=== PATIENT | female | born 1965 | race Caucasian/White ===

== ENCOUNTER → 2017-07-17 07:14 | Outpatient (CLI) | payer OTHER, SELFPAY ==
[2017-07-17 10:49] LABS: Thyroid Stim Hormone (TSH) 0.31 uIU/mL (0.358-3.74)
== END ==
DX: E03.9 Hypothyroidism, unspecified (principal)
CPT/HCPCS: 36415; 84443

== ENCOUNTER → 2017-12-20 16:22 | Outpatient (CLI) | payer OTHER, SELFPAY ==
[2017-12-20 18:15] LABS: Free T3 2.6 pg/mL (2.18-3.98); T4 Free Direct 1.24 ng/dL (0.76-1.46)
[2017-12-22 13:49] LABS: Thyroid Peroxidase AB 146 IU/mL (0-34)
== END ==
PROVIDERS: Family Provider Family Medicine; PCP Family Medicine; Visit Provider Specialist
DX: E03.9 Hypothyroidism, unspecified (principal)
CPT/HCPCS: 36415; 84439; 84443; 84481; 86376

== ENCOUNTER → 2017-12-25 11:54 | Outpatient (CLI) | payer OTHER, SELFPAY ==
--- NOTE | 2017-12-25 11:59 | RAD_ITS ---
STUDY: X-RAY - LUMBAR SPINE REASON FOR EXAM: Female, 52 years old. Low back pain. TECHNIQUE: 5 view(s) of the lumbar spine were obtained. COMPARISON: None FINDINGS: Normal lumbar lordosis. There is no substantial scoliosis. There is a normal alignment of the vertebrae. Normal vertebral bodies and endplates. Normal disc space heights. There is no demonstrated fracture. The soft tissue structures are unremarkable. RAD/L/S Spine Min 4 Views IMPRESSION: Normal x-ray examination of the lumbar spine. Electronically Signed: Lopez Palmer MD at 15:59 EDT , Service support ,
[2017-12-25 14:19] LABS: Erythrocyte Sedimentation Rate < 1 mm/hr (0-30)
[2017-12-25 14:21] LABS: Absolute Lymphocyte Count 1.13 X10^3/ul (0.83-4.51); Absolute Neutrophil Count 2.3 X10^3/uL (2.0-7.7); Basophil# 0.04 X10^3/uL; Eosinophil# 0.02 X10^3/uL; Eosinophils% 0.5 % (0-5); Hematocrit 39.9 % (37-47); Hemoglobin 13.3 g/dl (12.0-15.0); Lymphocyte # 1.13 X10^3/ul (4.0); Lymphocyte % 29.7 % (19-41); Mean Corp Hgb Conc 33.3 g/gl (32-36); Mean Corpuscular Hgb 28.2 pg (27.0-32.0); Mean Corpuscular Volume 84.7 fL (81-99); Mean Platelet Vol. 9.6 fl (6.2-12.0); Monocyte# 0.29 X10^3/uL; Monocyte% 7.6 % (0-10); Neutrophil # 2.32 X10^3/uL (2.7-7.7); Neutrophil % 60.9 % (47-70); Platelet Count 281 K/mm3 (150-450); RBC Distribution Width CV 13.2 % (11.6-14.6); RBC Distribution Width SD 40.5 fl (35.1-43.9); Red Blood Count 4.71 M/mm3 (4.2-5.4); White Blood Count 3.8 K/mm3 (4.4-11.0)
[2017-12-25 14:23] LABS: POSITIVE COUNT NO; POSITIVE DIFFERENTIAL NO; POSITIVE MORPHOLOGY NO
[2017-12-25 14:33] LABS: ALB/GLOB Ratio 1.1 RATIO (0.9-2.4); AST(SGOT) 15 U/L (15-37); Alanine Aminotransfer ALT/SGPT 27 U/L (13-56); Albumin, Serum 4.4 g/dL (3.2-5.0); Alkaline Phosphatase 67 U/L (45-117); Anion Gap 8 (5-15); BUN 8 mg/dL (7-18); Calcium,Total 9.2 mg/dL (8.5-10.1); Chloride 101 mmol/L (98-107); Cholesterol 251 mg/dL (200); Creatinine, Serum 0.67 mg/dL (0.55-1.02); EST Glomerular Filtration Rate 98 mL/min (>60); Est Glom Filt Rate - Afr Amer 119 mL/min (>60); Globulin 3.9 g/dL (2.2-4.2); Glucose 86 mg/dL (74-106); High Density Lipoprotein 131 mg/dL; Potassium 4.5 mmol/L (3.5-5.1); Protein, Total 8.3 g/dL (6.4-8.2); Rheumatoid Factor < 10.0 IU/mL (<15); Sodium Level 139 mmol/L (136-145); Triglycerides 79 mg/dL; Very Low Density Lipoprotein 16 mg/dL (5-40)
[2017-12-26 09:41] LABS: Vitamin D,25 Hydroxy 40.8 ng/mL (29.95-100.01)
[2017-12-26 09:55] LABS: PTHIN 60.4 pg/mL (18.4-80.1)
[2017-12-26 14:54] LABS: Anti-Centromere B Ab <0.2 AI (0.0-0.9); Anti-Chromatin <0.2 AI (0.0-0.9); Anti-Jo <0.2 AI (0.0-0.9); Anti-Scleroderma-70 AB <0.2 AI (0.0-0.9); Anti-ribosomal P Antibodies <0.2 AI (0.0-0.9); RNP Ab 0.2 AI (0.0-0.9); SJOGREN'S Anti-SS-A test < 0.2 AI (0.0-0.9); SJOGREN'S Anti-SS-B test < 0.2 AI (0.0-0.9); Smith Ab <0.2 AI (0.0-0.9); Smith/RNP Ab <0.2 AI (0.0-0.9)
[2017-12-26 15:46] LABS: Anti-dsDNA Ab <1 IU/mL (0-9)
== END ==
PROVIDERS: Family Provider Family Medicine; PCP Family Medicine; Visit Provider Family Medicine
DX: M54.5 Low back pain (principal); D72.819 Decreased white blood cell count, unspecified; E78.00 Pure hypercholesterolemia, unspecified
CPT/HCPCS: 36415; 72110; 80053; 80061; 82306; 83970; 85025; 85652; 86038; 86225; 86235; 86431

== ENCOUNTER → 2018-02-26 16:49 | Outpatient (CLI) | payer OTHER, SELFPAY ==
[2018-02-26 18:07] LABS: Progesterone Level 0.42 ng/mL (See Comment)
[2018-02-26 18:17] LABS: Estradiol 61.6 pg/mL; Free T3 2.4 pg/mL (2.18-3.98); T3 Uptake 28 % (30-39); T4 Total, Thyroxin 6.8 ug/dL (4.8-13.9); T7 / Free Thyroxin Index 1.9 (1.4-4.5)
[2018-02-28 10:07] LABS: T4 Free Direct 0.56 ng/dL (0.76-1.46)
[2018-03-01 13:42] LABS: DHEA Sulfate 120.2 ug/dL (41.2-243.7)
== END ==
PROVIDERS: Family Provider Family Medicine; PCP Family Medicine; Referring Provider Specialist; Visit Provider Specialist
DX: E03.8 Other specified hypothyroidism (principal); N95.1 Menopausal and female climacteric states
CPT/HCPCS: 36415; 82627; 82670; 84144; 84403; 84436; 84439; 84443; 84479; 84481; 82626

== ENCOUNTER → 2018-04-30 12:41 | Outpatient (CLI) | payer OTHER, SELFPAY ==
[2018-04-30 14:45] LABS: Free T3 3.7 pg/mL (2.18-3.98); T4 Total, Thyroxin 9.6 ug/dL (4.8-13.9); Thyroid Stim Hormone (TSH) 3.92 uIU/mL (0.358-3.74)
[2018-05-01 08:14] LABS: T4 Free Direct 0.75 ng/dL (0.76-1.46)
[2018-05-01 10:00] LABS: Thyroid Peroxidase AB 147 IU/mL (0-34)
--- OUTSIDE RECORDS SUMMARY | 2018-06-16 15:20 | XMS RPT_ITS ---
:1965 Author Organization [facility] Care Team Providers Name Role Phone Edson Trevino Attending Unavailable Edson Trevino Referring Unavailable Shahid, Robert Primary Care Unavailable Edson Trevino Attending Unavailable Edson Trevino Referring Unavailable Shahid, Robert Primary Care Unavailable Edson Trevino Attending Unavailable Edson Trevino Referring Unavailable Shahid, Robert Primary Care Unavailable Keegan Mckoy Attending Unavailable Keegan Mckoy Primary Care Unavailable Shahid, Robert Attending Unavailable Shahid, Robert Referring Unavailable Shahid, Robert Primary Care Unavailable PROBLEMS PROBLEMS DATE TYPE CONDITION / CODE ATTENDING STATUS SOURCE 02/26/2018 Unknown N95.1 - Menopausal [place] Trevino and female [facility] climacteric states / Hospital N95.1(ICD-10) Repository 02/26/2018 Unknown E03.8 - Other [place], Active [place] specified [facility] hypothyroidism / Hospital E03.8(ICD-10) Repository 12/25/2017 Unknown M54.5 - Low back Shahid, Robert Active [place] pain / M54.5(ICD-10) [facility]ly [facility] Repository 12/20/2017 Unknown E03.9 - [place], Active [place] Hypothyroidism, [facility] unspecified / Hospital E03.9(ICD-10) Repository PROCEDURES PROCEDURES No Procedure Records FoundRESULTS RESULTS FREE T3 Collected: 04/30/2018 Status: F Source: [place] 12:47 PM [facility] REPOSITORY Order Comment: FT4 ADDED ON TYPE CODE TESTS RESULT OUT OF RANGE REFERENCE UNITS LAB L501.89331 2.18-3.98 pg/mL Normal FREE T3 3.7 Performed By: #### L501.90397, L501.9310, L501.9520, L506.0400 #### [facility] [address] [place], [place], [address] T4 TOTAL, THYROXIN Collected: 04/30/2018 Status: F Source: [place] 12:47 PM [facility] REPOSITORY Order Comment: FT4 ADDED ON TYPE CODE TESTS RESULT OUT OF RANGE REFERENCE UNITS LAB L501.9310 4.8-13.9 ug/dL T4 Normal THYROXIN 9.6 Performed By: #### L501.37405, L501.9310, L501.9520, L506.0400 #### [facility] [address] [place], [place], [address] THYROID STIM HORMONE Collected: 04/30/2018 Status: F Source: [place] (TSH) 12:47 PM [facility] REPOSITORY Order Comment: FT4 ADDED ON TYPE CODE TESTS RESULT OUT OF RANGE REFERENCE UNITS LAB L501.9520 0.358-3.74 uIU/mL High TSH 3.92 Performed By: #### L501.62979, L501.9310, L501.9520, L506.0400 #### [facility] [address] [place], [place], [id number] T4 FREE DIRECT Collected: 04/30/2018 Status: F Source: [place] 12:47 PM [facility] REPOS[facility]ORY Order Comment: FT4 ADDED ON TYPE CODE TESTS RESULT OUT OF REFERENCE UNITS RANGE LAB L506.0400 0.76-1.46 ng/dL Low T4 FREE 0.75 DIRECT Performed By: #### L501.19997, L501.9310, L501.9520, L506.0400 #### [facility] [address] [place], [place], [id number] THYROID PEROXIDASE AB Collected: 04/30/2018 Status: F Source: [place] 12:47 PM [facility]POSITORY TYPE CODE TESTS RESULT OUT OF RANGE REFERENCE UNITS LAB L3300.6900 0-34 IU/mL High TPO AB 147 6676 Result Comment: Performed at: [facility] [id number] Package Center Supervisor: Armaan Godinez PhD, Phone: [phone] Performed By: #### L3300.6900 #### [facility] (refer to report for specific site) refer to report for address and phone number TESTOSTERONE, SERUM TOTAL Collected: 02/26/2018 Status: F Source: [place] 4:51 PM [facility] REPOSITORY TYPE CODE TESTS RESULT OUT OF REFERENCE UNITS RANGE LAB L509.3000 ng/dL Testosterone Normal 17.48 Result Comment: NORMAL REFERENCE RANGES MALE AGE <50 123.06 - 813.86 ng/dL MALE AGE >50 89.98 - 780.10 ng/dL FEMALE PREMENOPAUSE AGE 21 - 60 9.01 - 47.94 ng/dL FEMALE POSTMENOPAUSE AGE 45 - 89 <7.00 - 45.62 ng/dL REFERENCE RANGE AND METHODOLOGY CHANGED 05/09/2017 Performed By: #### L509.3000, L509.4001 #### [facility] [address] [place], [place], [address] PROGESTERONE LEVEL Collected: 02/26/2018 Status: F Source: [place] 4:51 PM [facility]ORY TYPE CODE TESTS RESULT OUT OF REFERENCE UNITS RANGE LAB L509.4001 See Comment ng/mL Progesterone Normal 0.42 Result Comment: Progesterone Reference Table: UNITS Female: Follicular 0.15 - 1.40 ng/mL Luteal 3.34 - 25.56 ng/mL Mid-luteal 4.44 - 28.03 ng/mL Postmenopausal 0.0 - 0.73 ng/mL : 1st Trimester 11.22 - 90.00 ng/mL 2nd Trimester 25.55 - 89.40 ng/mL 3rd Trimester 48.40 -422.50 ng/mL Performed By: #### L509.3000, L509.4001 #### [facility] [address] [place], [address] FREE T3 Collected: 02/26/2018 Status: F Source: [place] 4:51 PM [facility]POS[facility]ORY Order Comment: PLEASE ADD T4F TO BLOOD FROM 02-26-18 [facility] 2 J TYPE CODE TESTS RESULT OUT OF RANGE REFERENCE UNITS LAB L501.37218 2.18-3.98 pg/mL Normal FREE T3 2.4 Performed By: #### L501.40798, L501.9195, L501.9310, L501.9520, L3300.1750, L506.0400 #### [facility] [address] [place], [address] T3 UPTAKE Collected: 02/26/2018 Status: F Source: [place] 4:51 PM [facility] Order Comment: PLEASE ADD T4F TO BLOOD FROM 02-26-18 [facility] 2 J TYPE CODE TESTS RESULT OUT OF RANGE REFERENCE UNITS LAB L501.9210 30-39 % Low T3 UPTAKE 28 LAB L501.9410 1.4-4.5 Normal T7 (FTI) 1.9 Performed By: #### L501.68612, L501.9195, L501.9310, L501.9520, L3300.1750, L506.0400 #### [facility] [address] [place], [address] T4 TOTAL, THYROXIN Collected: 02/26/2018 Status: F Source: [place] 4:51 PM [facility] Order Comment: PLEASE ADD T4F TO BLOOD FROM 02-26-18 [facility] 2 J TYPE CODE TESTS RESULT OUT OF RANGE REFERENCE UNITS LAB L501.9310 4.8-13.9 ug/dL T4 Normal THYROXIN 6.8 Performed By: #### L501.40636, L501.9195, L501.9310, L501.9520, L3300.1750, L506.0400 #### [facility] [address] [place], [address] THYROID STIM HORMONE Collected: 02/26/2018 Status: F Source: [place] (TSH) 4:51 PM [facility] Order Comment: PLEASE ADD T4F TO BLOOD FROM 02-26-18 T[facility]2 2 J TYPE CODE TESTS RESULT OUT OF RANGE REFERENCE UNITS LAB L501.9520 0.358-3.74 uIU/mL High TSH 24.10 Performed By: #### L501.44318, L501.9195, L501.9310, L501.9520, L3300.1750, L506.0400 #### [facility] [address] [place], [place], [address] ESTRADIOL Collected: 02/26/2018 Status: F Source: [place] 4:51 PM [facility] Order Comment: PLEASE ADD T4F TO BLOOD FROM 02-26-18 TY2 2 J TYPE CODE TESTS RESULT OUT OF RANGE REFERENCE UNITS LAB L3300.1750 pg/mL Normal ESTRADIOL 61.6 Result Comment: NORMAL REFERENCE RANGES FEMALE FOLLICULAR 21.4 - 164.8 pg/mL MID-CYCLE PEAK 49.9 - 367.2 pg/mL LUTEAL 40.2 - 259.0 pg/mL POST-MENOPAUSAL ON MHT <11.0 - 462.1 pg/mL NOT ON MHT <11.0 - 58.3 pg/mL MALE <11.0 - 52.5 pg/mL NOTE: [facility] HAS CONFIRMED THE DRUG FULVETRANT (FASLODEX) MAY CAUSE FALSELY ELEVATED ESTRADIOL RESULTS WHEN USING THIS TEST METHOD. IF PATIENT IS TAKING FULVESTRANT AN ALTERNATIVE METHOD SHOULD BE USED TO DETERMINE ESTRADIOL CONCENTRATION. Performed By: #### L501.00839, L501.9195, L501.9310, L501.9520, L3300.1750, L506.0400 #### [facility] [address] [place], [address] T4 FREE DIRECT Collected: 02/26/2018 Status: F Source: [place] 4:51 PM [facility] Order Comment: PLEASE ADD T4F TO BLOOD FROM 02-26-18 TY2 2 J TYPE CODE TESTS RESULT OUT OF REFERENCE UNITS RANGE LAB L506.0400 0.76-1.46 ng/dL Low T4 FREE 0.56 DIRECT Performed By: #### L501.27039, L501.9195, L501.9310, L501.9520, L3300.1750, L506.0400 #### [facility] [address] [place], [place], [address] DHEA SULFATE Collected: 02/26/2018 Status: F Source: [place] 4:51 PM [facility] Order Comment: Has Patient had Radioactive Injection for X-ray?: N TYPE CODE TESTS RESULT OUT OF RANGE REFERENCE UNITS LAB L3300.1500 41.2-243.7 ug/dL Normal DHEA SULF 120.2 4020 Result Comment: Performed at: - [facility] [address] [id number] Package Center Supervisor: Armaan Godinez PhD, Phone: [phone] Performed By: #### L3300.1500 #### [facility] (refer to report for specific site) refer to report for address and phone number L/S SPINE MIN 4 Observed: 12/25/2017 Status: F Source: [place] VIEWS 11:59 AM [facility] Imaging Services [address] [place] [address] L/S Spine Min 4 Views MR#: [id number] Acct: [id number] Name: HILDA CALDERON Rep #: [id number] : 1965 F 52 From: Lopez Palmer MD PCP: Robert Shahid MD Status: REG CLI Study: L/S Spine Min 4 Views Date of Exam: 12/25/17 Exam# [id number] Ordering Dr: Robert Shahid MD STUDY: X-RAY - LUMBAR SPINE REASON FOR EXAM: Female, 52 years old. Low back pain. TECHNIQUE: 5 view(s) of the lumbar spine were obtained. COMPARISON: None FINDINGS: Normal lumbar lordosis. There is no substantial scoliosis. There is a normal alignment of the vertebrae. Normal vertebral bodies and endplates. Normal disc space heights. There is no demonstrated fracture. The soft tissue structures are unremarkable. RAD/L/S Spine Min 4 Views IMPRESSION: Normal x-ray examination of the lumbar spine. Electronically Signed: Lopez Palmer MD at 15:59 EDT , Service support , CC: Robert Shahid MD Cull Grader: Signed ERYTHROCYTE SED RATE Collected: 12/25/2017 Status: F Source: [place] 11:58 AM [facility]POS[facility]ORY TYPE CODE TESTS RESULT OUT OF RANGE REFERENCE UNITS LAB L102.0000 0-30 mm/hr Normal SED RATE < 1 Performed By: #### L101.9900, L100.0100 #### [facility] [place], [address] CBC W/DIFF, AUTOMATED Collected: 12/25/2017 Status: F Source: [place] 11:58 AM [facility] REPOS[facility]ORY TYPE CODE TESTS RESULT OUT OF RANGE REFERENCE UNITS LAB L100.1000 4.4-11.0 K/mm3 Low WBC 3.8 LAB L100.1200 4.2-5.4 M/mm3 Normal RBC 4.71 LAB L100.1300 12.0-15.0 g/dl Normal HGB 13.3 LAB L100.1400 37-47 % Normal HCT 39.9 LAB L100.1500 81-99 fL Normal MCV 84.7 LAB L100.1600 27.0-32.0 pg Normal MCH 28.2 LAB L100.1700 32-36 g/gl Normal MCHC 33.3 LAB L100.1810 11.6-14.6 % Normal RDW CV 13.2 LAB L100.1820 35.1-43.9 fl Normal RDW SD 40.5 LAB L100.1900 150-450 K/mm3 Normal PLT 281 LAB L100.2000 6.2-12.0 fl Normal MPV 9.6 LAB L100.2100 47-70 % Normal NEUT% 60.9 LAB L100.2200 19-41 % Normal LY% 29.7 LAB L100.2300 0-10 % Normal MONO% 7.6 LAB L100.2400 0-5 % Normal EO% 0.5 LAB L100.2500 0-1 % Normal BASO% 1.0 LAB L100.2550 0.0-0.9 % Normal IM GRAN % 0.300 Result Comment: IG% - Immature Granulocytes (promyelocytes, myelocytes and metamyelocytes) > 1% indicates that a LEFT SHIFT is Present. LAB L100.2620 2.0-7.7 X10 3/uL Normal Absolute Neut 2.3 LAB L100.2720 0.83-4.51 X10 3/ul Normal Absolute Lymph 1.13 Performed By: #### L101.9900, L100.0100 #### [facility] [address] [place], [address] COMPREHENSIVE METABOLIC Collected: 12/25/2017 Status: F Source: [facility] 11:58 AM [facility]POS[facility]ORY TYPE CODE TESTS RESULT OUT OF RANGE REFERENCE UNITS LAB L501.0100 74-106 mg/dL Normal GLU 86 Result Comment: Please note revised GLUCOSE reference range effective 2017. LAB L501.1000 7-18 mg/dL Normal BUN 8 LAB L501.1100 0.55-1.02 mg/dL Normal CREAT,SERUM 0.67 Result Comment: The validity of the calculated GFR AND GFRAA in patients over 70 years has not been determined. Clinical correlation is essential. LAB L501.1110 >60 mL/min Normal EST GFR 98 Result Comment: Non- GFR Calc LAB L501.1115 >60 mL/min Normal EST GFR - AA 119 Result Comment: GFR Calc LAB L501.1300 10-20 RATIO Normal BUN/CRE 12.0 LAB L501.1500 6.4-8.2 g/dL High T PROT 8.3 LAB L501.1800 3.2-5.0 g/dL Normal ALB 4.4 LAB L501.1950 2.2-4.2 g/dL Normal GLOB 3.9 LAB L501.2000 0.9-2.4 RATIO Normal A/G 1.1 LAB L501.2200 8.5-10.1 mg/dL CA Normal 9.2 LAB L501.4100 15-37 U/L Normal AST 15 LAB L501.4305 45-117 U/L Normal ALK P 67 LAB L501.4405 13-56 U/L Normal ALT 27 LAB L501.4600 0.20-1.00 mg/dL T Normal BILI 0.40 LAB L501.5300 136-145 mmol/L NA Normal 139 LAB L501.5600 3.5-5.1 mmol/L K Normal 4.5 LAB L501.5900 98-107 mmol/L CL Normal 101 LAB L501.6100 21.0-32.0 mmol/L Normal CO2 30.0 LAB L501.6200 5-15 Normal GAP 8 Performed By: #### L500.4050, L500.4100, L505.7010 #### [facility] [address] [place], [address] LIPID PROFILE Collected: 12/25/2017 Status: F Source: [place] 11:58 AM [facility]POS[facility]ORY TYPE CODE TESTS RESULT OUT OF RANGE REFERENCE UNITS LAB L501.4900 200 mg/dL High CHOL 251 Result Comment: <200 mg/dL Desirable 200-240 mg/dL Borderline >240 mg/dL High Risk LAB L501.5000 mg/dL Normal TRIG 79 Result Comment: The drugs N-Acetylcysteine and Metamizole may falsely depress this assay. Serum Triglycerides Reference Interval Normal <150 mg/dL Borderline high 150 - 199 mg/dL High 200 - 499 mg/dL Very High > or = 500 mg/dL LAB L501.6400 mg/dL Normal HDL 131 Result Comment: The drugs N-Acetylcysteine and Metamizole may falsely depress this assay. Reference Range HDL <40 mg/dL Low HDL Cholesterol HDL >or= 60 mg/dL High HDL Cholesterol LAB L501.6500 0-130 mg/dL Normal LDL 104 LAB L501.6600 5-40 mg/dL Normal VLDL 16 Performed By: #### L500.4050, L500.4100, L505.7010 #### [facility] [address] [place], [address] RHEUMATOID FACTOR Collected: 12/25/2017 Status: F Source: [place] 11:58 AM [facility]POS[facility]ORY TYPE CODE TESTS RESULT OUT OF RANGE REFERENCE UNITS LAB L505.7010 <15 IU/mL Normal RHEUMATOID FAC < 10.0 Performed By: #### L500.4050, L500.4100, L505.7010 #### [facility] [address] [place], [address] VITAMIN D,25 HYDROXY Collected: 12/25/2017 Status: F Source: [place] 11:58 AM [facility]POS[facility] TYPE CODE TESTS RESULT OUT OF RANGE REFERENCE UNITS LAB L506.1000 29.95-100.01 ng/mL Normal Vitamin D 40.8 25-OH Result Comment: Vitamin D 25(OH) Status Range Deficiency <20 ng/mL (50nmol/L) Insuffciency 20 - 30 ng/mL (50 - 75 nmol/L) Sufficiency 30 - 100 ng/mL (75 - 250 nmol/L) Toxicity >100 ng/mL (>250 nmol/L) Performed By: #### L506.1000 #### [facility] [address] [place], [address] PTHIN Collected: 12/25/2017 Status: F Source: [place] 11:58 AM [facility]POS[facility] TYPE CODE TESTS RESULT OUT OF RANGE REFERENCE UNITS LAB L509.1000 18.4-80.1 pg/mL Normal PTHIN 60.4 Performed By: #### L509.1000 #### [facility] [address] [place], [place], [address] STEPH W/COMPREHENSIVE Collected: 12/25/2017 Status: F Source: [place] 11:58 AM [facility]POS[facility] TYPE CODE TESTS RESULT OUT OF RANGE REFERENCE UNITS LAB L3100.5500 0-9 IU/mL Normal dsDNA AB <1 Result Comment: Negative <5 Equivocal 5 - 9 Positive >9 LAB L3100.9200 0.0-0.9 AI Anti-SS-A Normal < 0.2 LAB L3100.9300 0.0-0.9 AI Anti-SS-B Normal < 0.2 LAB L3100.9400 0.0-0.9 AI Anti-P Normal <0.2 LAB L3410.0427 0.0-0.9 AI ANTICHROMATIN Normal <0.2 LAB L3410.0500 0.0-0.9 AI ANTI-CINTIA Normal <0.2 LAB L3410.0700 0.0-0.9 AI ANTISCLER Normal <0.2 LAB L3410.1200 0.0-0.9 AI AUTO BENCH MECHANIC Ab Normal 0.2 LAB L3410.1300 0.0-0.9 AI SHAHID Ab Normal <0.2 LAB L3410.1310 0.0-0.9 AI SHAHID/AUTO BENCH MECHANIC Ab Normal <0.2 LAB L3410.4010 0.0-0.9 AI ANTI-CENT B Normal <0.2 LAB L3410.4100 . COMMENT Normal Comment Result Comment: Autoantibody Disease Association Condition Frequency Antinuclear Antibody, SLE, mixed connective Direct (STEPH-D) tissue diseases dsDNA SLE 40 - 60% Chromatin Drug induced SLE 90% SLE 48 - 97% SSA (Ro) SLE 25 - 35% Sjogren's Syndrome 40 - 70% Lupus 100% SSB (La) SLE 10% Sjogren's Syndrome 30% Sm (anti-Shahid) SLE 15 - 30% AUTO BENCH MECHANIC Mixed Connective Tissue Disease 95% (U1 nRNP, SLE 30 - 50% anti-ribonucleoprotein) Polymyositis and/or Dermatomyositis 20% Scl-70 (antiDNA Scleroderma (diffuse) 20 - 35% topoisomerase) Crest 13% Cintia-1 Polymyositis and/or Dermatomyositis 20 - 40% Centromere B Scleroderma - Crest variant 80% Ribosomal P SLE 10 - 20% Performed at: [facility] [id number] Package Center Supervisor: Armaan Godinez PhD, Phone: [phone] Performed By: #### L3100.5430 #### [facility] (refer to report for specific site) refer to report for address and phone number FREE T3 Collected: 12/20/2017 Status: F Source: [place] 4:30 PM [facility] REPOS[facility]ORY TYPE CODE TESTS RESULT OUT OF RANGE REFERENCE UNITS LAB L501.77678 2.18-3.98 pg/mL Normal FREE T3 2.6 Performed By: #### L501.85382, L501.9520, L506.0400 #### [facility] [address] [place], [place], [address] THYROID STIM HORMONE Collected: 12/20/2017 Status: F Source: [place] (TSH) 4:30 PM [facility]POS[facility] TYPE CODE TESTS RESULT OUT OF RANGE REFERENCE UNITS LAB L501.9520 0.358-3.74 uIU/mL Normal TSH 1.50 Performed By: #### L501.62518, L501.9520, L506.0400 #### [facility] [address] [place], [place], [address] T4 FREE DIRECT Collected: 12/20/2017 Status: F Source: [place] 4:30 PM [facility] TYPE CODE TESTS RESULT OUT OF RANGE REFERENCE UNITS LAB L506.0400 0.76-1.46 ng/dL Normal T4 FREE 1.24 DIRECT Performed By: #### L501.95196, L501.9520, L506.0400 #### [facility] [address] [place], [place], [address] THYROID PEROXIDASE AB Collected: 12/20/2017 Status: F Source: [place] 4:30 PM [facility] TYPE CODE TESTS RESULT OUT OF RANGE REFERENCE UNITS LAB L3300.6900 0-34 IU/mL High TPO AB 146 6676 Result Comment: Performed at: - [facility] [address], [place], [place] [id number] Package Center Supervisor: Armaan Godinez PhD, Phone: [phone] Performed By: #### L3300.6900 #### [facility] (refer to report for specific site) refer to report for address and phone number THYROID STIM HORMONE Collected: 07/17/2017 Status: F Source: [place] (TSH) 7:21 AM [facility] TYPE CODE TESTS RESULT OUT OF RANGE REFERENCE UNITS LAB L501.9520 0.358-3.74 uIU/mL Low TSH 0.31 Performed By: #### L501.9520 #### [facility] [place], [address] ALLERGIES ALLERGIES No Allergies Records FoundENCOUNTERS ENCOUNTERS ADMIT/DISCHARGE ACCOUNT ADMITTING ENCOUNTER LOCATION SOURCE NUMBER CLASS 04/30/2018 [id number] Ambulatory [place] [facility] ing:MTLAB Repository 02/26/2018 [id number] Ambulatory [place] [facility] ing:MTLAB Repository 12/25/2017 [id number] Amb[place] [facility] ing:MTLAB Repository 12/20/2017 [id number] Ambulatory [place] [facility] ing:MTLAB Repository 07/17/2017 [id number] Ambulatory [place] [facility] ing:MTLAB Repository PAYERS PAYERS ENCOUNTER GUARANTOR PAYER SUBSCRIBER SOURCE 04/30/2018 GUANACO Nieves Primary Insurance:R GUANACO [place] [id number] ANH [id number] REDINGERDOB: [facility] Number: [id number] [place], [place] [id number] Repository [address]Esq: 330) Date:8529-67-06FE [phone] ( [address], [place] [address]GM: 04/30/2018 Secondary NOT GIVENUNK [place] Insurance:SELF PAY [facility] Number: Effective Repository Date:2018-04-30 02/26/2018 Solo Nieves Primary Insurance:UMR Solo Nieves [place] [id number] ANH [id number] RedingerDOB: Community [facility] Number: [id number] [place], [place] [id number] Repository [address]Lqx: ([phone]) Date:7022-55-56BU [phone] () [address] [place], [place] [id number]: 02/26/2018 Secondary NOT GIVENUNK [place] Insurance:SELF PAY [facility] Number: Effective Repository Date:2018-02-26 12/25/2017 Solo Nieves Primary Insurance:UMR Solo Nieves [place] [id number] ANH [id number] RedingerDOB: Community [facility] Number: [id number] [place], [place] [id number] Repository [address]Ana: ([phone]) Date:7843-77-05VE [phone] () [address] [place], [place] [id number]: 12/25/2017 Secondary NOT GIVENUNK [place] Insurance:SELF PAY [facility] Number: Effective Repository Date:2017-12-25 12/20/2017 Solo Nieves Primary Insurance:UMR Solo Bettencourtoster [id number] ANH [id number] RedingerDOB: Community [facility] Number: [id number] [place], [place] [id number] Repository [address]Pxm: ([phone]) Date:8296-07-54VH [phone] () [address] [place] [phone]: 12/20/2017 Secondary NOT GIVENUNK [place] Insurance:SELF PAY [facility] Number: Effective Repository Date:2017-12-20 07/17/2017 Solo Nieves Primary Insurance:UMR Solo Nieves [place] [id number] ANH [id number] RedingerDOB: Community [facility]entes Number: [id number], [place] [id number] Repository [address]Kqk: 330) Date:6728-33-50BR [phone] () [place] [address]OD: 07/17/2017 Secondary NOT GIVENUNK [place] Insurance:SELF PAY [facility] Number: Effective Repository Date:2017-07-17
== END ==
PROVIDERS: Family Provider Family Medicine; PCP Family Medicine; Referring Provider Specialist; Visit Provider Specialist
DX: E03.8 Other specified hypothyroidism (principal)
CPT/HCPCS: 36415; 84436; 84439; 84443; 84481; 86376

== ENCOUNTER → 2018-08-01 16:31 | Outpatient (CLI) | payer OTHER, SELFPAY ==
[2018-08-01 18:02] LABS: Free T3 4.5 pg/mL (2.18-3.98)
== END ==
PROVIDERS: Family Provider Family Medicine; PCP Family Medicine; Referring Provider Specialist; Visit Provider Specialist
DX: E03.8 Other specified hypothyroidism (principal)
CPT/HCPCS: 36415; 84481

== ENCOUNTER 2018-09-25 19:17 | Emergency (ER) | payer OTHER, SELFPAY ==
[2018-09-25 19:18] VITALS: BP 162/86; PULSE 82; RESP 18; TEMP 36.7; O2SAT 100; BMI 24.9
[2018-09-25] MEDS: Diphth,Pertuss(Acell),Tet Vac 0.5 ML Vial IM (19:53)
--- NOTE | 2018-09-25 19:54 | ED.DCSUM_ITS ---
- ER Visit Summary Date of Service: 09/25/18 Chief Complaint: Fall with lower inner lip laceration History of Present Illness: The patient is a 53 F was walking [place]. It was less than a foot off the ground. She slipped fell landing on her face causing a laceration of her lower lip on the inner mucosal border. No LOC. She is on no blood thinners. Denies any neck pain or other injuries. Denies any dental injury. Physical Examination: Middle-aged female. No acute distress. Vital signs are stable afebrile. HEENT exam pupils round reactive light. There is no signs of any other facial trauma other than about a 2 cm vertical laceration on the inner mucosal surface of her lower lip. No dental injury. She has an overbite that is chronic. There is no malocclusion. She can open and close her mouth without any difficulty. There is no specific jaw tenderness or significant swelling. No trismus. Posterior pharynx unremarkable. The rest of her face and scalp are nontender without any signs of trauma. C-spine nontender normal range of motion to her neck. Trachea midline. Lungs clear to auscultation. Chest wall nontender. Heart regular rhythm no murmur. Abdomen soft nontender. Back nontender. She is moving all 4 extremities. Neurovascular intact. Nontender. No deformities. Full range of motion. Neurologically she is awake and alert. GCS of 15. No focal motor deficits. Test Results: None Emergency Department Course and Treatment: Inner lower lip laceration 2 cm repair. Locally anesthetized with lidocaine. Wound washed and explored. Closed using two 5-0 Vicryl simple interrupted sutures. Patient tolerated procedure well. Good hemostasis wound closure was obtained. Patient was instructed on wound care. She was unsure of her last tetanus thought it might be around 10 years so was updated. Treatment Plan: Rinse mouth thoroughly. Ice to the area. Motrin for pain. Disposition: Discharge Impression: Fall Lower lip laceration 2 cm with ear repair Tetanus updated This note was generated with [employer] dictation software. It may contain incorrect words, spelling, and punctuation that were not noted in review of the chart prior to signing ED Disposition - Plan for ED Patient: Disposition: Home or Assisted Living Instructions: ED Laceration Mouth Prescriptions: Penicillin Vk [Pen-Vee K 250MG] 250 mg PO 4X/DAY #20 tab Referrals: Robert Shahid MD [Primary Care Provider] - 1 Week if not improving Additional Instructions: Tylenol Motrin for pain. Ice to your lower lip. Return if any problems.
[2018-09-25 20:25] VITALS: BP 142/77; RESP 16
== END 2018-09-25 20:26 | disposition home or self-care (01) ==
PROVIDERS: Emergency Provider Emergency Medicine; Family Provider Family Medicine; PCP Family Medicine
DX: S01.511A Laceration without foreign body of lip, initial encounter (principal); W01.0XXA Fall on same level from slipping, tripping and stumbling without subsequent striking against object, initial encounter; Y93.01 Activity, walking, marching and hiking; Y92.9 Unspecified place or not applicable; Y99.9 Unspecified external cause status; Z23 Encounter for immunization
CPT/HCPCS: 12011; 90471; 90715; 99282

== ENCOUNTER → 2018-12-11 15:28 | Outpatient (CLI) | payer OTHER, SELFPAY ==
[2018-12-11 18:02] LABS: Progesterone Level 0.09 ng/mL (See Comment)
[2018-12-11 18:03] LABS: Free T3 3.6 pg/mL (2.18-3.98)
== END ==
PROVIDERS: Family Provider Family Medicine; PCP Family Medicine; Referring Provider Specialist; Visit Provider Specialist
DX: E03.8 Other specified hypothyroidism (principal); N95.1 Menopausal and female climacteric states
CPT/HCPCS: 36415; 82670; 84144; 84403; 84481

== ENCOUNTER → 2019-02-28 11:52 | Outpatient (CLI) | payer OTHER, SELFPAY ==
[2019-02-28 15:40] LABS: Hematocrit 43.5 % (37-47); Hemoglobin 14.2 g/dL (12.0-15.0); Mean Corp Hgb Conc 32.6 g/dL (32-36); Mean Corpuscular Hgb 27.7 pg (27.0-32.0); Mean Corpuscular Volume 84.8 fL (81-99); Mean Platelet Vol. 9.7 fl (6.2-12.0); Platelet Count 288 K/mm3 (150-450); RBC Distribution Width CV 12.8 % (11.6-14.6); RBC Distribution Width SD 39.5 fl (35.1-43.9); Red Blood Count 5.13 M/mm3 (4.2-5.4); White Blood Count 5.3 K/mm3 (4.4-11.0)
[2019-02-28 16:03] LABS: ALB/GLOB Ratio 1.2 RATIO (0.9-2.4); AST(SGOT) 23 U/L (15-37); Alanine Aminotransfer ALT/SGPT 35 U/L (13-56); Albumin, Serum 4.5 g/dL (3.2-5.0); Alkaline Phosphatase 76 U/L (45-117); Anion Gap 8 (5-15); BUN 9 mg/dL (7-18); BUN/Creat Ratio 15.3 RATIO (10-20); CRP, High Sensitivity Cardiac 0.72 mg/L; Calcium,Total 9.4 mg/dL (8.5-10.1); Chloride 104 mmol/L (98-107); Cholesterol 258 mg/dL (200); Creatinine, Serum 0.59 mg/dL (0.55-1.02); EST Glomerular Filtration Rate 112 mL/min (>60); Est Glom Filt Rate - Afr Amer 136 mL/min (>60); Globulin 3.7 g/dL (2.2-4.2); Glucose 83 mg/dL (74-106); High Density Lipoprotein 133 mg/dL; Potassium 3.9 mmol/L (3.5-5.1); Protein, Total 8.2 g/dL (6.4-8.2); Sodium Level 140 mmol/L (136-145); T3 Uptake 29 % (30-39); T4 Free Direct 0.85 ng/dL (0.76-1.46); Thyroid Stim Hormone (TSH) 0.07 uIU/mL (0.358-3.74); Triglycerides 65 mg/dL; Very Low Density Lipoprotein 13 mg/dL (5-40)
[2019-02-28 16:25] LABS: T7 / Free Thyroxin Index 0.2 (1.4-4.5)
[2019-03-04 08:53] LABS: Free T3 4.8 pg/mL (2.18-3.98)
[2019-03-08 15:28] LABS: Anti-Thyroglobulin AB 800.1 IU/mL (0.0-0.9); Thyroglobulin RIA 5.4 ng/mL (.); Thyroid Peroxidase AB 78 IU/mL (0-34)
== END ==
PROVIDERS: Family Provider Family Medicine; PCP Family Medicine; Referring Provider Family Medicine; Visit Provider Family Medicine
DX: Z00.00 Encounter for general adult medical examination without abnormal findings (principal); E03.9 Hypothyroidism, unspecified
CPT/HCPCS: 36415; 80053; 80061; 84432; 84439; 84443; 84479; 84481; 85027; 86141; 86376; 86800

== ENCOUNTER → 2019-03-14 15:20 | Outpatient (CLI) | payer OTHER, SELFPAY ==
--- NOTE | 2019-03-14 15:36 | BI_ITS ---
MAMMOGRAPHY - BILATERAL SCREENING REASON FOR EXAM: Female, 53 years old. Routine annual screening examination. PERTINENT HISTORY: Non-contributory. TECHNIQUE: Digital bilateral breast bere (3D mammographic acquisition) in the CC and MLO projections. 2-D mediolateral oblique (MLO) and craniocaudad (CC) views of both breasts were obtained. CAD: Full Field Digital Mammography with Computer Added Detection was performed. COMPARISON: Comparison is made with prior outside examination dated October 02, 2016. FINDINGS: Breast Composition: The breasts are heterogeneously dense, which may obscure small masses. There are no dominant masses or suspicious calcifications. No other significant abnormalities are identified. There has been no significant change since the prior study. BI/SCREEN MAMM (CAD) W/BERE BILAT IMPRESSION: Stable bilateral screening mammogram. Yearly follow-up mammogram recommended. (A) ASSESSMENT CATEGORY: BIRADS Category 1: Negative. A letter regarding these results will be sent to the patient by the facility within 30 days. Approximately 10% of breast cancers are not detected by mammography. A normal mammogram should not delay biopsy of a clinically suspicious abnormality. [id number] Electronically Signed: David Savage, at 9:35 EDT , Service support ,
== END ==
PROVIDERS: Family Provider Family Medicine; PCP Family Medicine; Referring Provider Family Medicine; Visit Provider Family Medicine
DX: Z12.31 Encounter for screening mammogram for malignant neoplasm of breast (principal)
CPT/HCPCS: 77063; 77067

== ENCOUNTER → 2019-03-27 08:23 | Outpatient (CLI) | payer OTHER, SELFPAY ==
[2019-03-27 08:00] VITALS: BMI 24.3
--- NOTE | 2019-03-27 08:25 | RAD_ITS ---
STUDY: X-RAY OF CERVICAL SPINE REASON FOR EXAM: Female, 53 years old. Bilateral arm numbness. TECHNIQUE: 5 views of the cervical spine. COMPARISON: None. FINDINGS: Minimal intervertebral disc space narrowing at C5-6 with anterior bony neural foraminal encroachment at this level bilaterally. Diffuse uncovertebral and facet sclerosis. The odontoid is intact. The prevertebral soft tissues are normal. RAD/Cerv Spine 4 or 5 Views IMPRESSION: Mild lower cervical spondylosis as described. Electronically Signed: Seth Fuentes MD at 11:44 EST , Service support ,
[2019-03-27 10:09] LABS: Free T3 3.6 pg/mL (2.18-3.98); T4 Free Direct 0.62 ng/dL (0.76-1.46)
== END ==
PROVIDERS: Family Provider Family Medicine; PCP Family Medicine; Referring Provider Orthopaedic Surgery; Visit Provider Orthopaedic Surgery
DX: R20.0 Anesthesia of skin (principal); R20.2 Paresthesia of skin; E03.9 Hypothyroidism, unspecified
CPT/HCPCS: 72050; 84439; 84481

== ENCOUNTER → 2019-05-12 08:23 | Outpatient (CLI) | payer OTHER, SELFPAY ==
[2019-05-02 16:18] VITALS: BMI 24.3
--- NOTE | 2019-05-12 08:24 | US_ITS ---
STUDY: THYROID ULTRASOUND REASON FOR EXAM: Female, 53 years old. F/U NODULES LEVOTHYROXINE TECHNIQUE: Ultrasound evaluation of the thyroid was performed with real-time and static dudley-scale imaging. COMPARISON: None. FINDINGS: RIGHT LOBE: The right lobe of the thyroid gland measures 3.5 x 1.3 x 1.6 cm. There is a heterogeneous echotexture. There are no demonstrated solid, cystic or complex lesions. LEFT LOBE: The left lobe of the thyroid gland measures 3.5 x 1.2 x 0.9 cm. There is a heterogeneous echotexture. There are no demonstrated solid, cystic or complex lesions. ISTHMUS: The isthmus measures . The regional lymph nodes are normal. US/Thyroid IMPRESSION: Normal size heterogeneous thyroid gland without discrete nodule Electronically Signed: Mono Terry MD at 17:49 EST , Service support ,
== END ==
PROVIDERS: Family Provider Family Medicine; PCP Family Medicine; Referring Provider Internal Medicine Endocrinology, Diabetes & Metabolism; Visit Provider Internal Medicine Endocrinology, Diabetes & Metabolism
DX: E04.1 Nontoxic single thyroid nodule (principal)
CPT/HCPCS: 76536

== ENCOUNTER → 2019-05-16 06:31 | Outpatient (CLI) | payer OTHER, SELFPAY ==
[2019-05-02 16:18] VITALS: BMI 24.3
--- NOTE | 2019-05-16 06:32 | MRI_ITS ---
STUDY: MRI CERVICAL SPINE WITHOUT CONTRAST REASON FOR EXAM: Female, 53 years old. BILAT ARM/HAND NUMBNESS AND TINGLING -- dull neck pain, fall 2 years ago but not sure if related TECHNIQUE: Standardized fat and water weighted pulse sequences were obtained in the sagittal and axial planes. COMPARISON: None FINDINGS: Normal foramen magnum and brainstem-cervical cord junction. Normal cervical lordosis. C2-3: There is minimal disc space narrowing and endplate spondylosis. There is no significant disc herniation, central canal or foraminal stenosis. C3-4: There is minimal disc space narrowing and endplate spondylosis. There is no significant disc herniation, central canal or foraminal stenosis. C4-5: There is minimal disc space narrowing and endplate spondylosis. There is no significant disc herniation, central canal or foraminal stenosis. C5-6: There is moderate disc space narrowing and endplates spondylosis. Minimal disc osteophyte complex without significant central canal stenosis. Uncovertebral and facet arthropathy with mild right and mild left foraminal stenosis. C6-7: There is minimal disc space narrowing and endplate spondylosis. Mild disc osteophyte complex with mild central canal stenosis. There is no significant foraminal stenosis. C7-T1: Normal endplates. Normal disc height, signal and morphology. Normal central canal and intervertebral neural foramina. Normal cervical cord. Normal visualized soft tissue structures. MRI/Spine Cervical (Routine) IMPRESSION: C5/C6: Mild bilateral foraminal stenosis. Electronically Signed: Essence Schneider MD at 11:50 EST Tel , Service support ,
== END ==
PROVIDERS: Family Provider Family Medicine; PCP Family Medicine; Referring Provider Physician Assistant; Visit Provider Physician Assistant
DX: G56.23 Lesion of ulnar nerve, bilateral upper limbs (principal); R20.0 Anesthesia of skin; R20.2 Paresthesia of skin
CPT/HCPCS: 72141

== ENCOUNTER → 2019-07-11 11:06 | Outpatient (CLI) | payer OTHER, SELFPAY ==
[2019-06-06 08:38] VITALS: BMI 24.3
[2019-07-11 13:40] LABS: T4 Free Direct 1.13 ng/dL (0.76-1.46); Thyroid Stim Hormone (TSH) 4.21 uIU/mL (0.358-3.74)
== END ==
PROVIDERS: PCP Family Medicine; Referring Provider Internal Medicine Endocrinology, Diabetes & Metabolism; Visit Provider Internal Medicine Endocrinology, Diabetes & Metabolism
DX: E03.8 Other specified hypothyroidism (principal); E06.3 Autoimmune thyroiditis
CPT/HCPCS: 36415; 84439; 84443

== ENCOUNTER → 2019-09-29 12:01 | Outpatient (CLI) | payer OTHER, SELFPAY ==
[2019-06-06 08:38] VITALS: BMI 24.3
[2019-09-29 13:11] LABS: Thyroid Stim Hormone (TSH) 1.89 uIU/mL (0.358-3.74)
== END ==
PROVIDERS: PCP Family Medicine; Referring Provider Internal Medicine Endocrinology, Diabetes & Metabolism; Visit Provider Internal Medicine Endocrinology, Diabetes & Metabolism
DX: E06.3 Autoimmune thyroiditis (principal); E03.8 Other specified hypothyroidism
CPT/HCPCS: 36415; 84439; 84443

== ENCOUNTER → 2020-08-05 16:03 | Outpatient (CLI) | payer OTHER, SELFPAY ==
[2019-06-06 08:38] VITALS: BMI 24.3
[2020-08-05 17:22] LABS: T4 Free Direct 1.06 ng/dL (0.76-1.46); Thyroid Stim Hormone (TSH) 7.34 uIU/mL (0.358-3.74)
== END ==
PROVIDERS: PCP Family Medicine; Referring Provider Internal Medicine Endocrinology, Diabetes & Metabolism; Visit Provider Internal Medicine Endocrinology, Diabetes & Metabolism
DX: E03.8 Other specified hypothyroidism (principal); E06.3 Autoimmune thyroiditis
CPT/HCPCS: 36415; 84439; 84443

== ENCOUNTER → 2020-10-25 15:45 | Outpatient (CLI) | payer OTHER, SELFPAY ==
[2020-08-05 15:53] VITALS: BMI 25.3
== END ==
PROVIDERS: PCP Family Medicine; Visit Provider Internal Medicine Endocrinology, Diabetes & Metabolism
DX: E06.3 Autoimmune thyroiditis (principal)
CPT/HCPCS: 36415; 84439; 84443

== ENCOUNTER → 2021-03-01 10:30 | Outpatient (CLI) | payer OTHER, SELFPAY ==
[2021-03-01 13:10] LABS: CRP, High Sensitivity Cardiac 0.55 mg/L; Cholesterol 291 mg/dL (200); Free T3 2.3 pg/mL (2.18-3.98); High Density Lipoprotein 122 mg/dL; Thyroid Stim Hormone (TSH) 3.18 uIU/mL (0.358-3.74); Triglycerides 61 mg/dL; Very Low Density Lipoprotein 12 mg/dL (5-40)
== END ==
PROVIDERS: PCP Family Medicine; Referring Provider Family Medicine; Visit Provider Family Medicine
DX: R07.89 Other chest pain (principal); E78.00 Pure hypercholesterolemia, unspecified; E03.9 Hypothyroidism, unspecified
CPT/HCPCS: 36415; 80061; 84439; 84443; 84481; 86141

== ENCOUNTER 2021-08-10 16:11 | Outpatient (CLI) | payer BC, SELFPAY ==
[2021-08-10 17:25] LABS: Ferritin 57 ng/mL (8-252); T4 Free Direct 1.11 ng/dL (0.76-1.46); Thyroid Stim Hormone (TSH) 4.15 uIU/mL (0.358-3.74); Vitamin B12 408 pg/mL (211-911); Vitamin D,25 Hydroxy 51.9 ng/mL
== END 2021-08-10 23:59 | disposition home or self-care (01) ==
LOC: BIMLAB 16:12
PROVIDERS: PCP Family Medicine; Referring Provider Internal Medicine Endocrinology, Diabetes & Metabolism; Visit Provider Internal Medicine Endocrinology, Diabetes & Metabolism
DX: E03.8 Other specified hypothyroidism (principal); E06.3 Autoimmune thyroiditis; R53.83 Other fatigue; E55.9 Vitamin D deficiency, unspecified
CPT/HCPCS: 36415; 82306; 82607; 82728; 84439; 84443

== ENCOUNTER 2021-08-12 15:43 | Outpatient (CLI) | payer BC, SELFPAY ==
--- NOTE | 2021-08-12 15:52 | CT_ITS ---
STUDY: CT FACIAL BONES WITHOUT CONTRAST ENHANCEMENT OF 1555 HOURS ON 08/12/2021 REASON FOR EXAM: 56-year-old female with symptoms a sinusitis. RADIATION DOSAGE (If Supplied By Facility): CTDIvol = ( 33.06 ) mGy, DLP = ( 821.45 ) mGycm TECHNIQUE: The patient was scanned in a multi detector CT scanner. Sagittal and coronal images were reconstructed. Individualized dose optimization techniques were used for this CT. COMPARISON: None. FINDINGS: There are findings of a chronic right maxillary and right ethmoid sinusitis. Minimal left ethmoid sinusitis. Left maxillary, frontal, sphenoid sinuses have a normal appearance. A small retention cyst in the left maxillary sinus. There is no evidence of an osteomyelitis or periostitis. The frontal calvarium, nasal bones, goncalves of the paranasal sinuses, orbits, optic nerves, zygoma, mandible, and temporomandibular joints have a normal appearance. The mastoid sinuses are well developed and aerated bilaterally. CT/Sinus/Facial Bone IMPRESSION: 1. Chronic right maxillary, and right ethmoid sinusitis. 2. Minimal left ethmoid sinusitis. 2. Small retention cyst in left maxillary sinus. 4. Normal facial bones. No osteomyelitis or periostitis. 5. Moderately well-developed and pneumatized mastoid sinuses. Electronically Signed: Jeremy Domingo MD at 1:29 EDT ,
== END 2021-08-12 23:59 | disposition home or self-care (01) ==
PROVIDERS: PCP Family Medicine; Referring Provider Otolaryngology; Visit Provider Otolaryngology
DX: J32.9 Chronic sinusitis, unspecified (principal)
CPT/HCPCS: 70486

== ENCOUNTER 2021-08-15 16:24 | Outpatient (CLI) | payer BC, SELFPAY ==
--- NOTE | 2021-08-15 16:27 | US_ITS ---
STUDY: THYROID ULTRASOUND REASON FOR EXAM: Female, 56 years old. enlarging thyroid THYROMEGLY LEVOTHYROXINE TECHNIQUE: Ultrasound evaluation of the thyroid was performed with real-time and static dudley-scale imaging. COMPARISON: 05/12/2019 FINDINGS: RIGHT LOBE: The right lobe of the thyroid gland measures 3.5 x 1.5 cm. There is a heterogeneous echotexture. There are no demonstrated solid, cystic or complex lesions. LEFT LOBE: The left lobe of the thyroid gland measures 3.2 x 1 cm. There is a heterogeneous echotexture. There are no demonstrated solid, cystic or complex lesions. ISTHMUS: The isthmus measures 3 mm. US/Thyroid IMPRESSION: There are no acute findings on this ultrasound examination of the thyroid. Thyroid gland is diffusely heterogeneous and may suggest goiter. However a discrete nodule is not seen. Electronically Signed: Kartik Hernandez MD at 20:56 EDT ,
== END 2021-08-15 23:59 | disposition home or self-care (01) ==
LOC: US 16:26
PROVIDERS: PCP Family Medicine; Referring Provider Internal Medicine Endocrinology, Diabetes & Metabolism; Visit Provider Internal Medicine Endocrinology, Diabetes & Metabolism
DX: E04.9 Nontoxic goiter, unspecified (principal)
CPT/HCPCS: 76536

== ENCOUNTER → 2021-09-23 | Outpatient (CLI) | payer BC, SELFPAY ==
[2021-09-23 17:28] LABS: Hematocrit 38.5 % (37-47); Hemoglobin 12.4 g/dL (12.0-15.0); Mean Corp Hgb Conc 32.2 g/dL (32-36); Mean Corpuscular Hgb 27.3 pg (27.0-32.0); Mean Corpuscular Volume 84.6 fL (81-99); Platelet Count 333 K/mm3 (150-450); RBC Distribution Width CV 13.1 % (11.6-14.6); RBC Distribution Width SD 40.5 fl (35.1-43.9); Red Blood Count 4.55 M/mm3 (4.2-5.4); White Blood Count 5.6 K/mm3 (4.4-11.0)
[2021-09-23 17:45] LABS: ALB/GLOB Ratio 1.2 RATIO (0.9-2.4); AST(SGOT) 26 U/L (15-37); Alanine Aminotransfer ALT/SGPT 41 U/L (13-56); Albumin, Serum 4.3 g/dL (3.2-5.0); Alkaline Phosphatase 79 U/L (45-117); Amylase 60 U/L (25-115); Anion Gap 6 (5-15); BUN 7 mg/dL (7-18); BUN/Creat Ratio 13.3 RATIO (10-20); Calcium,Total 8.9 mg/dL (8.5-10.1); Chloride 99 mmol/L (98-107); Creatinine, Serum 0.53 mg/dL (0.55-1.02); EST Glomerular Filtration Rate 126 mL/min (>60); Est Glom Filt Rate - Afr Amer 153 mL/min (>60); Globulin 3.5 g/dL (2.2-4.2); Glucose 86 mg/dL (74-106); Lipase 189 U/L (73-393); Potassium 4.3 mmol/L (3.5-5.1); Protein, Total 7.8 g/dL (6.4-8.2); Sodium Level 133 mmol/L (136-145)
== END | disposition home or self-care (01) ==
LOC: MFPLAB 16:32
PROVIDERS: Registered Nurse; PCP Family Medicine; Referring Provider Family Medicine; Visit Provider Family Medicine
DX: R10.9 Unspecified abdominal pain (principal)
CPT/HCPCS: 36415; 80053; 82150; 83690; 85027

== ENCOUNTER → 2021-12-02 | Outpatient (CLI) | payer BC, SELFPAY | END | disposition home or self-care (01) | LOC: LAB 16:01 | PROVIDERS: PCP Family Medicine; Referring Provider Otolaryngology; Visit Provider Otolaryngology | DX: J32.9 Chronic sinusitis, unspecified (principal) | CPT/HCPCS: 87070; 87205 ==

== ENCOUNTER → 2021-12-08 | Outpatient (CLI) | payer BC, SELFPAY ==
--- NOTE | 2021-12-08 16:45 | CT_ITS ---
EXAM: CT MAXILLOFACIAL WITHOUT INTRAVENOUS CONTRAST CLINICAL INDICATION: SINUSITIS TECHNIQUE: Helically acquired images were obtained of the face without intravenous contrast. This CT exam was performed using one or more of the following dose reduction techniques: automated exposure control, adjustment of the mA and/or kV according to patient size, and/or use of iterative reconstruction technique. This report was created using [employer] report generation technology. RADIATION DOSE: CTDIvol = 33.06 mGy, DLP = 825.58 mGy-cm. COMPARISON: 08/12/2021. FINDINGS: BONES/JOINTS: Unremarkable. No displaced fracture. No discrete lytic or blastic abnormalities. SOFT TISSUES: Unremarkable. No focal subcutaneous swelling. No discrete fluid collections. ORBITS: Unremarkable. Both globes are unremarkable. Extraocular muscles are normal. Retrobulbar fat appears unremarkable. SINUSES: Polypoid mass extending from the right frontal recess through the anterior ethmoid air cells expanding the right ethmoid infundibulum and maxillary sinus ostium with extension into the superior right maxillary sinus. There appears to be calcification within this polypoid mass and it is unchanged since the previous exam. MASTOID AIR CELLS: Unremarkable as visualized. Clear. DENTAL: No acute findings. No periodontal osseous erosion. CT/Sinus/Facial Bone IMPRESSION: Polypoid mass extending from the right frontal sinus recess through the anterior ethmoid cells, the ethmoid infundibulum and maxillary sinus ostium and into the superior right maxillary sinus with some internal calcification. This may just represent chronic sinusitis. Electronically Signed: Sinan Whitaker MD at 6:39 EDT ,
== END | disposition home or self-care (01) ==
LOC: CT 16:44
PROVIDERS: PCP Family Medicine; Referring Provider Otolaryngology; Visit Provider Otolaryngology
DX: J32.9 Chronic sinusitis, unspecified (principal)
CPT/HCPCS: 70486

== ENCOUNTER 2022-01-10 11:24 | Day surgery (SDC) | payer BC, SELFPAY ==
--- NOTE | 2022-01-05 15:54 | EKG12_ITS ---
Test Reason : PREOP Blood Pressure : / mmHG Vent. Rate : 066 BPM Atrial Rate : 066 BPM P-R Int : 142 ms QRS Dur : 092 ms QT Int : 404 ms P-R-T Axes : 062 081 038 degrees QTc Int : 423 ms Normal sinus rhythm Normal ECG Confirmed by REVA MATTHEWS, SHIMA ([id number]), purchase request editor ROMI YANG ([id number]) on 01/06/2022 9:33:16 AM Referred By: Mkie Delacruz Confirmed By:SHIMA ARDON MD
[2022-01-05 16:43] LABS: Hematocrit 37.8 % (37-47); Hemoglobin 12.6 g/dL (12.0-15.0); Mean Corp Hgb Conc 33.3 g/dL (32-36); Mean Corpuscular Hgb 27.6 pg (27.0-32.0); Mean Corpuscular Volume 82.7 fL (81-99); Mean Platelet Vol. 9.1 fl (6.2-12.0); Platelet Count 322 K/mm3 (150-450); RBC Distribution Width CV 13.2 % (11.6-14.6); RBC Distribution Width SD 39.5 fl (35.1-43.9); Red Blood Count 4.57 M/mm3 (4.2-5.4); White Blood Count 5.8 K/mm3 (4.4-11.0)
[2022-01-05 16:52] LABS: International Normalized Ratio 0.9
[2022-01-05 16:53] LABS: Partial Thromboplast Time 28.1 Seconds (24.1-36.2)
[2022-01-05 18:26] LABS: AST(SGOT) 19 U/L (15-37); Alanine Aminotransfer ALT/SGPT 32 U/L (13-56); Albumin, Serum 4.4 g/dL (3.2-5.0); Alkaline Phosphatase 75 U/L (45-117); Bilirubin, Direct 0.09 mg/dL (0.00-0.30); Globulin 3.6 g/dL (2.2-4.2); Thyroid Stim Hormone (TSH) 1.57 uIU/mL (0.358-3.74)
[2022-01-10] VITALS (9 sets, daily range): BP systolic 115–143; BP diastolic 72–84; PULSE 69–86; RESP 14–16; TEMP 36.2–37.1; O2SAT 16–100; BMI 24.7
--- NOTE | 2022-01-10 | ETH_PTH ---
PATIENT: HILDA CALDERON LOC: [facility] [place] U#:[id number] AGE/SX: 56/F ROOM: RE01/10/[address]: Dr. Leonard Delacruz MD : 1965 BED: DIS: 01/10/2022 SPEC #: [id number] RECD: 01/10/22 17:36 STATUS: MARGARET REDenis #: [id number] SAI: 01/10/22 00:[address]: Leonard Delacruz DEPT: SURGICAL PATHOLOGY RECD BY: Leo Terry ENTERED: 01/11/22 11:46 SP TYPE: ETH TISS OTHR DR: Dr. Robert Shahid MD Tissues: A - Ethmoid sinus, NOS B - Ethmoid sinus, NOS Procedures: Decalcification bone/plaque Surgery Specimen Level IV HEADER OPERATION: Septoplasty, FESS, Navigation PRE-OP DIAGNOSIS: Chronic sinusitis TISSUE SUBMITTED: A ? Right sinus contents, B ? Left sinus contents MICROSCOPIC DIAGNOSIS A. Right sinus contents: Fragments of respiratory mucosa with chronic inflammation and bone. B. Left sinus contents: Fragments of respiratory mucosa with chronic inflammation and bone. See comment. RAI:coco 01/13/2022 COMMENT B. Focal actinomyces colonization is noted. Case has been reviewed in consultation with Dr. Leos who concurs with the above diagnosis. IDC:CHARITO MICROSCOPIC DESCRIPTION Slides are reviewed. GROSS DESCRIPTION A - Received in fixative is one container labeled with the patient's name and designated right sinus contents. The specimen consists of multiple irregular fragments of pink-graham soft tissue and bone that in aggregate measure 7 x 6 x 0.8 cm. [employer] portions are submitted in one cassette after decalcification. B - Received in fixative is one container labeled with the patient's name and designated left sinus contents. The specimen consists of multiple irregular fragments of pink-graham soft tissue and bone that in aggregate measure 5 x 4 x 0.5 cm. [employer] portions are submitted in one cassette after decalcification. / AM:coco 01/11/2022 TC:3 CPT: 82623 x2, 81696 x2
[2022-01-10] MEDS: Lactated Ringers 1,000 ML 15 ML IV ×2 (11:35→15:01)
[2022-01-10 13:01] LABS: Anion Gap 5 (5-15); BUN 9 mg/dL (7-18); BUN/Creat Ratio 15.4 RATIO (10-20); Calcium,Total 9.4 mg/dL (8.5-10.1); Chloride 104 mmol/L (98-107); Creatinine, Serum 0.58 mg/dL (0.55-1.02); EST Glomerular Filtration Rate 113 mL/min (>60); Est Glom Filt Rate - Afr Amer 136 mL/min (>60); Estimated Creatinine Clearance 98.98 ml/min; Glucose 85 mg/dL (74-106); Potassium 4.3 mmol/L (3.5-5.1); Sodium Level 137 mmol/L (136-145)
[2022-01-10] MEDS: Oxymetazoline 0.05% 1 SPRAY SPRAY.BTL 15 SPRAY (14:00)
[2022-01-10] MEDS: Mupirocin Ointment 22gm Tube 1 APPLIC (14:00)
[2022-01-10] MEDS: Lidocaine 1% /Epi 1:100 (20ml) 20 ML Vial (14:00)
--- NOTE | 2022-01-10 15:25 | DCINST_ITS ---
Discharge Instructions Diet Discharge Diet: No restrictions Activity Discharge Activity: Return to Normal Activity Dressing / Incision Call your doctor if your incision/area has: Sudden Increased Bleeding and Increased Pain/ Swelling Additional Dressing/Incision Instructions:: saline to nose 5 times daily. mupirocin to nose twice daily. sleep with head of bed elevated. Follow Up Care Please Follow Up With: Mike Delacruz MD When: 1 week Test Results: Test results from this visit will be discussed in further detail at your follow- up appointment, if applicable. Discharge Plan Admission Attending Provider: Mike Delacruz Primary Care Provider: Robert Shahid Discharge Orders/Prescriptions Prescriptions: No Action selenium 100 mcg tablet 100 mcg PO DAILY cholecalciferol (vitamin D3) 5,000 unit capsule 5,000 unit PO DAILY biotin 10,000 mcg capsule 10,000 mcg PO DAILY levothyroxine 112 mcg tablet 112 mcg PO DAILY Qty: 90 3RF zinc 50 mg Tablet 50 mg PO DAILY Referrals / Follow Up: Robert Shahid MD [Primary Care Provider] - Disposition Disposition (needs filled in before D/C Order can be placed): Home, Self Care
--- NOTE | 2022-01-10 15:28 | OP.PCM_ITS ---
Problems Associated Problem List Diagnoses (1) Nasal congestion: (2) Nasal septal deviation: (3) Hypertrophy of inferior nasal turbinate: (4) Chronic pansinusitis: Report of Operation Date of Procedure: 01/10/22 Pre-Operative Diagnosis: 1. nasal congestion 2. nasal septal deviation 3. inferior turbinate hypertrophy, right and left 4. chronic pansinusitis Post-Operative Diagnosis: 1. nasal congestion 2. nasal septal deviation 3. inferior turbinate hypertrophy, right and left 4. chronic pansinusitis Surgery/Procedure Performed:: 1. endoscopic maxillary antrostomy with removal of contents, right and left 2. endoscopic total ethmoidecotmy, right and left 3. endoscopic sphenoidotomy with removal of contents, right and left 4. endoscopic frontal sinus exploration removal of contents, right and left 5. septoplasty 6. submucous and bony resection inferior turbinates, right and left 7. CT image guided navigation Type of Anesthesia: General Description of Procedure: On the day of the procedure, after appropriate informed consent was obtained, the patient was brought to the operating room and placed in a supine position on the operating room table. The patient was placed under general endotracheal anesthesia by the anesthesiologist. The endotracheal tube was secured.? image guidance navigation was set up on the face and accuracy was confirmed.? the nose was injected with lidocaine/epinephrine and decongested with oxymetazoline- soaked pledgets.? a marginal incision was made with a #15 blade on the left side.? a submucoperichondrial plane was developed on the patient's left side with a isaias elevator.? this was taken posteriorly to the bony/cartilaginous junction and inferiorly to the maxillary crest.? after an L-strut was marked, a large rightward defection and 2cm bony spur were removed with a D-knife and zafar loyola.? the head of the right and left turbinates were injected with lidocaine/epinephrine.? the head of the left inferior turbinate was incised with a 15 blade, dissected submucosally with a isaias elevator, reduced using suction electrocautery and outfractured using a boies elevator.? bony reduction was performed with a thru cut. the head of the right inferior turbinate was incised with a 15 blade, dissected submucosally with a isaias elevator, reduced using suction electrocautery and outfractured using a boies elevator. the zero degree endoscope was used to evaluate the nasal cavity.? the superior attachment of the right and left middle turbinate and uncinate processes were injected with lidocaine/epinephrine.? the left nasal cavity was evaluated.? the middle turbinate was medialized.? a maxillary antrostomy and uncinectomy were performed with a isaias elevator and a sergio cut.? the antrostomy was widened with a back-biter.? purulent material and polyp material was evacuated.? the ethmoid bulla was entered bluntly with the suction.? a total ethmoidectomy was performed with a curette and an upgoing blakesley.? this was taken superiorly to the skull base and laterally to the lamina.? a stankewicz maneuver was performed and no laminar defect was noted.? the natural sphenoid os was widened with the microdebrider and purulent contents were evacuated.? fungus was removed from the sphenoethmoidal recess.? the frontal recess was explored and polyps were evacuated.? hemostasis was achieved with suction cautery; angel was placed. the right nasal cavity was evaluated.? the middle turbinate was medialized.? a maxillary antrostomy and uncinectomy were performed with a isaias elevator and a sergio cut.? the antrostomy was widened with a back-biter.? purulent material with polyp material was evacuated.? the ethmoid bulla was entered bluntly with the suction.? a total ethmoidectomy was performed with a curette and an upgoing blakesley.? this was taken superiorly to the skull base and laterally to the lamina. there were numerous polypoid masses that were removed medial to the lamina? a stankewicz maneuver was performed and a very small laminar defect was noted. this can be appreciated on the preoperative CT scan. the periorbita was still intact; no orbital fat was seen. the defect was a few millimeters. ? the natural sphenoid os was widened with the microdebrider and polyp contents were evacuated.? polyps was removed from the sphenoethmoidal recess.? the frontal recess was explored and polyps were evacuated.? hemostasis was achieved with suction cautery; angel was placed. savage splints were sutured into place.? a nasogastric tube was inserted orally and contents were evacuated.? the table was rotated 90 degrees toward the anesthesiologist and? was subsequently extubated uneventfully.? he was transferred to the PACU in stable condition.
[2022-01-10] MEDS: Acetaminophen/Codeine #3 Tablet 1 TABLET PO (17:25)
== END 2022-01-10 18:26 | disposition home or self-care (01) ==
LOC: SDC 11:24 → AC 11:25
PROVIDERS: Anesthesiology; PCP Family Medicine; Referring Provider Otolaryngology; Visit Provider Otolaryngology
PROC: (CPT 30520; principal; 2022-01-10 12:35)
DX: J34.2 Deviated nasal septum (principal); J34.3 Hypertrophy of nasal turbinates; J32.4 Chronic pansinusitis; E03.9 Hypothyroidism, unspecified; E78.5 Hyperlipidemia, unspecified; M19.90 Unspecified osteoarthritis, unspecified site; Z79.890 Hormone replacement therapy; Z79.899 Other long term (current) drug therapy
CPT/HCPCS: 30520; 31267; 31276; 30140; 31288; 36415; 80048; 80076; 84443; 85027; 85610; 85730; 88305; 88311; 93005; J7120; J2405

== ENCOUNTER → 2022-06-19 | Outpatient (CLI) | payer OTHER, SELFPAY ==
--- NOTE | 2022-06-19 15:21 | RAD_ITS ---
INDICATION: upper, mid thoracic back pain EXAMINATION/TECHNIQUE: X-RAY - XR Spine Thoracic 3Views COMPARISON: FINDINGS: VERTEBRAE: Preserved vertebral body height. No fracture. No spondylolisthesis. Preservation of the normal thoracic kyphosis. No significant facet arthropathy. DISCS: Disc spaces are maintained. INCLUDED CHEST/ABDOMEN: No acute abnormalities. RAD/Thoracic Spine 2 Views IMPRESSION: No evidence of thoracic spinal fracture or spondylolisthesis. Electronically Signed: Nicholas Chavez DO at 23:43 EST ,
== END | disposition home or self-care (01) ==
PROVIDERS: PCP Family Medicine; Referring Provider Family Medicine; Visit Provider Family Medicine
DX: M54.6 Pain in thoracic spine (principal)
CPT/HCPCS: 72070

== ENCOUNTER → 2022-06-22 | Outpatient (CLI) | payer OTHER, SELFPAY ==
--- NOTE | 2022-06-22 17:53 | CT_ITS ---
HISTORY: chronic intermittent abdominal distention, dyspepsia, and uterine mass s/p hysterectomy. TECHNIQUE: Helically acquired images were obtained of the abdomen and pelvis without oral or IV contrast. A radiation dose optimization technique was used for this scan. 451 images. COMPARISON: None. FINDINGS: LOWER CHEST: Lung bases clear. BOWEL: Bowel including appendix nondilated. No focal pericolonic inflammatory change. PERITONEUM: No significant free fluid. Mild mid mesenteric stranding with small lymph nodes. LIVER: Unremarkable. GALLBLADDER/BILIARY TREE: Gallbladder absent. SPLEEN/PANCREAS: Not enlarged. KIDNEYS AND URETERS: 2 mm left renal calculus without hydronephrosis. No right nephrolithiasis or hydronephrosis. ADRENAL GLANDS: No nodules. VESSELS: No abdominal aortic aneurysm. Mild atherosclerosis. PELVIC ORGANS: Partial hysterectomy. ABDOMINAL WALL: Tiny fat-containing ventral and umbilical hernias BONES: Mild degenerative change. CT/Abdomen/Pelvis without Cont IMPRESSION: Small nonobstructing left renal calculus. Mild mesenteric stranding with small lymph nodes, suggesting mesenteric panniculitis. Electronically Signed: Sangeetha Mccrary MD at 8:38 EST ,
== END | disposition home or self-care (01) ==
PROVIDERS: PCP Family Medicine; Visit Provider Family Medicine
DX: R10.13 Epigastric pain (principal); R14.0 Abdominal distension (gaseous); Z86.03 Personal history of neoplasm of uncertain behavior
CPT/HCPCS: 74176

== ENCOUNTER → 2022-12-15 | Outpatient (CLI) | payer OTHER, SELFPAY ==
[2022-12-15 18:11] LABS: ALB/GLOB Ratio 1.2 RATIO (0.9-2.4); AST(SGOT) 15 U/L (15-37); Alanine Aminotransfer ALT/SGPT 20 U/L (13-56); Albumin, Serum 4.5 g/dL (3.2-5.0); Alkaline Phosphatase 79 U/L (45-117); Anion Gap 6 (5-15); BUN 9 mg/dL (7-18); BUN/Creat Ratio 15.7 RATIO (10-20); Calcium,Total 9.5 mg/dL (8.5-10.1); Chloride 99 mmol/L (98-107); Cholesterol 264 mg/dL (200); Creatinine, Serum 0.57 mg/dL (0.55-1.02); EST Glomerular Filtration Rate 115 mL/min (>60); Est Glom Filt Rate - Afr Amer 139 mL/min (>60); Globulin 3.9 g/dL (2.2-4.2); Glucose 88 mg/dL (74-106); High Density Lipoprotein 118 mg/dL; Protein, Total 8.4 g/dL (6.4-8.2); Sodium Level 131 mmol/L (136-145); T4 Free Direct 1.32 ng/dL (0.76-1.46); Thyroid Stim Hormone (TSH) 0.64 uIU/mL (0.358-3.74); Triglycerides 50 mg/dL; Very Low Density Lipoprotein 10 mg/dL (5-40)
== END | disposition home or self-care (01) ==
LOC: MFPLAB 15:34
PROVIDERS: PCP Family Medicine; Visit Provider Family Medicine
DX: E78.00 Pure hypercholesterolemia, unspecified (principal); E03.9 Hypothyroidism, unspecified
CPT/HCPCS: 36415; 80053; 80061; 84439; 84443

== ENCOUNTER → 2022-12-20 | Outpatient (CLI) | payer OTHER, SELFPAY ==
[2022-12-20 17:43] LABS: Urine Sodium 35 mmol/L (Not Establ.)
[2022-12-20 18:19] LABS: Osmolality, Serum 277 mOsm/KG (275-295)
[2022-12-20 18:20] LABS: Osmolality, Urine 198 mOsm/KG
== END | disposition home or self-care (01) ==
LOC: MFPLAB 15:27
PROVIDERS: PCP Family Medicine; Visit Provider Family Medicine
DX: E87.1 Hypo-osmolality and hyponatremia (principal)
CPT/HCPCS: 36415; 83930; 83935; 84300

== ENCOUNTER → 2022-12-21 | Outpatient (CLI) | payer OTHER, SELFPAY ==
--- NOTE | 2022-12-21 15:38 | BI_ITS ---
MAMMOGRAPHY - BILATERAL SCREENING REASON FOR EXAM: Female, 57 years old. Routine annual screening examination. PERTINENT HISTORY: Non-contributory. TECHNIQUE: Digital bilateral breast bere (3D mammographic acquisition) in the CC and MLO projections. 2-D mediolateral oblique (MLO) and craniocaudad (CC) views of both breasts were obtained. CAD: Full Field Digital Mammography with Computer Added Detection was performed. COMPARISON: Comparison is made with prior study dated March 14, 2019 and December 08, 2014. FINDINGS: Breast Composition: The breasts are heterogeneously dense, which may obscure small masses. There are no dominant masses or suspicious calcifications. No other significant abnormalities are identified. There has been no significant change since the prior study. BI/SCRN MAMM (CAD)W/BERE BILAT IMPRESSION: Stable bilateral screening mammogram. Yearly follow-up mammogram recommended. (A) ASSESSMENT CATEGORY: BIRADS Category 1: Negative. A letter regarding these results will be sent to the patient by the facility within 30 days. Approximately 10% of breast cancers are not detected by mammography. A normal mammogram should not delay biopsy of a clinically suspicious abnormality. [id number] Electronically Signed: David Savage MD at 9:34 EDT ,
== END | disposition home or self-care (01) ==
PROVIDERS: PCP Family Medicine; Referring Provider Family Medicine; Visit Provider Family Medicine
DX: Z12.31 Encounter for screening mammogram for malignant neoplasm of breast (principal)
CPT/HCPCS: 77063; 77067

== ENCOUNTER → 2023-01-03 | Outpatient (CLI) | payer OTHER, SELFPAY ==
[2023-01-03 17:40] LABS: Anion Gap 7 (5-15); BUN 12 mg/dL (7-18); BUN/Creat Ratio 19.5 RATIO (10-20); Calcium,Total 9.3 mg/dL (8.5-10.1); Chloride 99 mmol/L (98-107); Creatinine, Serum 0.62 mg/dL (0.55-1.02); EST Glomerular Filtration Rate 106 mL/min (>60); Est Glom Filt Rate - Afr Amer 128 mL/min (>60); Glucose 78 mg/dL (74-106); Potassium 4.3 mmol/L (3.5-5.1); Sodium Level 132 mmol/L (136-145)
== END | disposition home or self-care (01) ==
LOC: MFPLAB 15:14
PROVIDERS: PCP Family Medicine; Visit Provider Family Medicine
DX: E87.1 Hypo-osmolality and hyponatremia (principal)
CPT/HCPCS: 36415; 80048

== ENCOUNTER → 2023-09-13 | Outpatient (CLI) | payer OTHER, SELFPAY ==
[2023-09-13 10:31] LABS: Hematocrit 38.7 % (37-47); Hemoglobin 12.7 g/dL (12.0-15.0); Mean Corp Hgb Conc 32.8 g/dL (32-36); Mean Corpuscular Hgb 27.3 pg (27.0-32.0); Mean Platelet Vol. 9.4 fl (6.2-12.0); Platelet Count 351 K/mm3 (150-450); RBC Distribution Width CV 13.6 % (11.6-14.6); RBC Distribution Width SD 41.1 fl (35.1-43.9); Red Blood Count 4.66 M/mm3 (4.2-5.4)
[2023-09-13 10:54] LABS: AST(SGOT) 28 U/L (15-37); Alanine Aminotransfer ALT/SGPT 60 U/L (13-56); Alkaline Phosphatase 84 U/L (45-117); Anion Gap 7 (5-15); BUN 18 mg/dL (7-18); BUN/Creat Ratio 24.6 RATIO (10-20); Calcium,Total 9.5 mg/dL (8.5-10.1); Chloride 101 mmol/L (98-107); Cholesterol 267 mg/dL (200); Creatinine, Serum 0.73 mg/dL (0.55-1.02); EST Glomerular Filtration Rate 86 mL/min (>60); Est Glom Filt Rate - Afr Amer 104 mL/min (>60); Free T3 1.8 pg/mL (2.18-3.98); Globulin 3.9 g/dL (2.2-4.2); Glucose 92 mg/dL (74-106); High Density Lipoprotein 124 mg/dL; Potassium 4.6 mmol/L (3.5-5.1); Protein, Total 7.9 g/dL (6.4-8.2); Sodium Level 136 mmol/L (136-145); T4 Free Direct 0.88 ng/dL (0.76-1.46); Triglycerides 81 mg/dL; Very Low Density Lipoprotein 16 mg/dL (5-40)
[2023-09-14 11:09] LABS: ANTINUCLEAR ANTIBODIES DIRECT Negative (Negative)
== END | disposition home or self-care (01) ==
LOC: MFPLAB 08:43
PROVIDERS: PCP Family Medicine; Visit Provider Family Medicine
DX: E78.5 Hyperlipidemia, unspecified (principal); E03.8 Other specified hypothyroidism; L56.8 Other specified acute skin changes due to ultraviolet radiation
CPT/HCPCS: 36415; 80053; 80061; 84439; 84443; 84481; 85027; 86038

== ENCOUNTER → 2023-11-27 | Outpatient (CLI) | payer OTHER, SELFPAY ==
[2023-11-27 18:17] LABS: T4 Free Direct 1.27 ng/dL (0.76-1.46); Thyroid Stim Hormone (TSH) 0.72 uIU/mL (0.358-3.74)
== END | disposition home or self-care (01) ==
LOC: MTLAB 14:41
PROVIDERS: PCP Family Medicine; Referring Provider Internal Medicine Endocrinology, Diabetes & Metabolism; Visit Provider Internal Medicine Endocrinology, Diabetes & Metabolism
DX: E06.3 Autoimmune thyroiditis (principal); E03.8 Other specified hypothyroidism
CPT/HCPCS: 36415; 84439; 84443

== ENCOUNTER → 2023-12-25 | Outpatient (CLI) | payer OTHER, SELFPAY ==
--- NOTE | 2023-12-25 13:08 | BI_ITS ---
MAMMOGRAPHY - BILATERAL SCREENING REASON FOR EXAM: Female, 58 years old. Routine annual screening examination. PERTINENT HISTORY: Non-contributory. TECHNIQUE: Digital bilateral breast bere (3D mammographic acquisition) in the CC and MLO projections. 2-D mediolateral oblique (MLO) and craniocaudad (CC) views of both breasts were obtained. CAD: Full Field Digital Mammography with Computer Added Detection was performed. COMPARISON: Comparison is made with prior study December 21, 2022 and March 14, 2019. FINDINGS: Breast Composition: The breasts are heterogeneously dense, which may obscure small masses. There are no dominant masses or suspicious calcifications. No other significant abnormalities are identified. There has been no significant change since the prior study. BI/SCRN MAMM (CAD)W/BERE BILAT IMPRESSION: Stable bilateral screening mammogram. Yearly follow-up mammogram recommended. (A) ASSESSMENT CATEGORY: BIRADS Category 1: Negative. A letter regarding these results will be sent to the patient by the facility within 30 days. Approximately 10% of breast cancers are not detected by mammography. A normal mammogram should not delay biopsy of a clinically suspicious abnormality. [id number] Electronically Signed: David Savage MD at 14:22 EDT ,
== END | disposition home or self-care (01) ==
LOC: OPBI 13:06
PROVIDERS: PCP Family Medicine; Referring Provider Family Medicine; Visit Provider Family Medicine
DX: Z12.31 Encounter for screening mammogram for malignant neoplasm of breast (principal)
CPT/HCPCS: 77063; 77067

== ENCOUNTER → 2024-08-04 | Outpatient (CLI) | payer BC, SELFPAY ==
[2024-08-04 18:21] LABS: Thyroid Stim Hormone (TSH) 0.206 uIU/mL (0.300-4.200)
== END | disposition home or self-care (01) ==
LOC: MTLAB 15:12
PROVIDERS: PCP Family Medicine; Referring Provider Internal Medicine Endocrinology, Diabetes & Metabolism; Visit Provider Internal Medicine Endocrinology, Diabetes & Metabolism
DX: E03.8 Other specified hypothyroidism (principal); E06.3 Autoimmune thyroiditis
CPT/HCPCS: 36415; 84439; 84443

== ENCOUNTER → 2024-11-06 | Outpatient (CLI) | payer BC, SELFPAY ==
[2024-11-06 17:44] LABS: Hemoglobin A1c 5.6 % (<=5.6)
[2024-11-06 17:54] LABS: T4 Total, Thyroxin 10.2 ug/dL (4.8-13.9); Thyroid Stim Hormone (TSH) 0.242 uIU/mL (0.300-4.200)
== END | disposition home or self-care (01) ==
LOC: MFPLAB 15:20
PROVIDERS: PCP Family Medicine
DX: N39.0 Urinary tract infection, site not specified (principal)
CPT/HCPCS: 36415; 83036; 84436; 84443

== ENCOUNTER → 2024-12-04 | Outpatient (CLI) | payer BC, SELFPAY ==
[2024-12-04 15:26] LABS: Hematocrit 40.3 % (37-47); Hemoglobin 13.6 g/dL (12.0-15.0); Immature Granulocytes Count 0.010 X10^3/uL (0.0-0.0); Mean Corp Hgb Conc 33.7 g/dL (32-36); Mean Corpuscular Volume 81.7 fL (81-99); Mean Platelet Vol. 9.0 fl (6.2-12.0); NRBC Flagged by Analyzer 0 % (0-5); Platelet Count 306 K/mm3 (150-450); RBC Distribution Width CV 13.2 % (11.6-14.6); RBC Distribution Width SD 38.9 fl (35.1-43.9); Red Blood Count 4.93 M/mm3 (4.2-5.4); White Blood Count 3.6 K/mm3 (4.4-11.0)
[2024-12-04 16:49] LABS: AST(SGOT) 25 U/L (<=31); Alanine Aminotransfer ALT/SGPT 30 U/L (<=34); Albumin, Serum 5.0 g/dL (3.4-4.8); Alkaline Phosphatase 75 U/L (35-104); Anion Gap 14 (5-15); BUN 7 mg/dL (4-19); BUN/Creat Ratio 12.1 RATIO (10-20); Calcium,Total 10.1 mg/dL (7.6-11.0); Carbon Dioxide 23.9 mmol/L (21.0-32.0); Chloride 96 mmol/L (98-108); Cholesterol 297 mg/dL (<=200); Free T3 2.5 pg/mL (2.18-3.98); Globulin 3.1 g/dL (2.2-4.2); Glucose 95 mg/dL (70-99); Low Density Lipoprotein Calc. 165 mg/dL; Potassium 4.1 mmol/L (3.3-5.1); Triglycerides 86 mg/dL; Very Low Density Lipoprotein 17 mg/dL (5-40); cholesterol:hdl ratio screen 2.58
== END | disposition home or self-care (01) ==
LOC: MFPLAB 12:08
PROVIDERS: PCP Family Medicine; Referring Provider Family Medicine; Visit Provider Family Medicine
DX: E03.8 Other specified hypothyroidism (principal); E78.5 Hyperlipidemia, unspecified; E06.3 Autoimmune thyroiditis
CPT/HCPCS: 36415; 80053; 80061; 84439; 84443; 84481; 85025

== ENCOUNTER → 2024-12-25 | Outpatient (CLI) | payer BC, SELFPAY ==
--- NOTE | 2024-12-25 07:33 | BI_ITS ---
EXAM: SCRN MAMM (CAD)W/BERE BILAT DATE: 12/25/2024 CLINICAL HISTORY: F, Age 59 y/o , SCREENING No family history. TECHNIQUE: SCRN MAMM (CAD)W/BERE BILAT COMPARISON: Prior exam(s) dated December 25, 2023.. FINDINGS: TISSUE DENSITY: The breasts are extremely dense, which lowers the sensitivity of mammography. Bilateral Breast Mammographic Findings: No significant masses, calcifications or other abnormalities are identified. No suspicious masses, areas of developing architectural distortion, or suspicious calcifications. There has been no significant interval change. BI/SCRN MAMM (CAD)W/BERE BILAT IMPRESSION: Stable examination. OVERALL FINAL ASSESSMENT BI-RADS 1: NEGATIVE. RECOMMENDATION: Routine annual follow-up in 1 Year A letter with findings and recommendations will be mailed to the patient. Reading Location: [id number]
--- OUTSIDE RECORDS SUMMARY | 2024-12-25 07:37 | XMS RPT_ITS | CCD ---
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 Shalini Shahid Primary Care Provider Dr. Shalini Shahid Referring Provider Dr. Morgan Razo Attending Provider Shalini Shahid MD Primary Care Provider [phone] Dr. Morgan Razo Attending Provider Shalini Shahid MD Primary Care Provider [phone] Shalini Shahid MD Primary Care Provider [phone] SHALINI SHAHID Primary Care Unavailable BLU DUVAL Attending Unavailable SHALINI SHAHID Primary Care Unavailable ASHANTI SAMPSON Attending Unavailable SHALINI SHAHID Referring Unavailable SHALINI SHAHID Primary Care Unavailable BLU DUVAL Attending Unavailable SHALINI SHAHID Referring Unavailable SHALINI SHAHID Primary Care Unavailable Dr. Shalini Shahid Primary Care Provider [phone] Shalini Shahid Referring Provider [phone] Dr. Morgan Razo Attending Provider [phone] Shalini Shahid MD Primary Care Provider Dr. Shalini Shahid MD Referring Provider [phone] Morgan Razo MD Attending Provider Dr. Morgan Razo MD Referring Provider Adelina Church Attending Provider Dr. Shalini Shahid MD Primary Care Provider Dr. Shalini Shahid MD Attending Provider Dr. Shalini Shahid MD Referring Provider [phone] Carlin Shahidic Primary Care Unavailable Morgan Razo Attending Unavailable Shahid, Shalini Referring Unavailable Shahid, Shalini Primary Care Unavailable Shahid, Shalini Attending Unavailable Shahid, Shalini Referring Unavailable Shahid, Shalini Primary Care Unavailable Adelina Lopez Attending Unavailable Shahid, Shalini Primary Care Unavailable Dung, Morgan Attending Unavailable Dung, Morgan Referring Unavailable Shahid, Shalini Primary Care Unavailable Shahid, Shalini Attending Unavailable Shahid, Shalini Referring Unavailable Shahid, Shalini Primary Care Unavailable Shahid, Shalini Attending Unavailable Shahid, Shalini Referring Unavailable Allergies Allergy Classification Reported Allergen(s) Allergy Type Date of Onset Reaction(s) Facility (6 sources) Acetaminophen Drug Allergy 2 Unknown [facility] Work Phone: (20 sources) lansoprazole; Translations: [LANSOPRAZOLE] Drug Allergy 2 Other: See Comments [facility] (20 sources) Penicillins; Translations: [PENICILLINS] Allergy to substance 5 Swelling [facility] Work Phone: (14 sources) Propoxyphene Drug Allergy 2 Unknown [facility] (9 sources) Amoxicillin; Translations: [AMOXICILLIN] Drug Allergy 5 [facility] Work Phone: (9 sources) Propoxyphene N-Acetaminophen; Translations: [PROPOXYPHENE N-ACETAMINOPHEN] Propensity to adverse reactions 5 [facility] Work Phone: (1 source) lansoprazole Drug Allergy 5 [facility] Repository (1 source) Propoxyphene Drug Allergy 5 [facility] Medications Current Medications Medication Drug Class(es) Dates Sig (Normalized) Sig (Original) biotin 10 mg oral capsule (17 sources) Start: 08-05-2020 take 1 capsule by mouth once daily Biotin 10,000 mcg capsule Active 86703 ug PO DAILY August 05, 2020 12:00am Start: 08-05-2020 Biotin Active MCG PO August 05, 2020 12:00am Comment on above: Take by mouth. cholecalciferol 0.125 mg oral capsule (14 sources) Vitamin D Start: 04-04-20 take 1 capsule by mouth once daily Cholecalciferol (Vitamin D3) 5,000 unit capsule Active 5000 U PO DAILY April 04, 2019 1:00am estradiol 1 mg oral tablet (11 sources) Estrogen Start: 03-27-20 Estradiol Active PO 90 March 27, 2019 1:00am End: 07-26-2022 take 1 tablet by mouth once daily estradiol 2 mg tablet Take 2 mg by mouth once daily. 0 07/26/2022 Discontinued Comment on above: Take 2 mg by mouth o nce daily. levothyroxine sodium 0.112 mg oral tablet (20 sources) l-Thyroxine Start: take 0.5 tablet by mouth once daily Levothyroxine 112 mcg tablet Active 112 ug PO .qd, 1/2 on Sunday 96 3 November 07, 2024 12:33pm Start: 07-29-2024 End: 07-29-2024 take 0.5 tablet by mouth once daily Levothyroxine 112 mcg tablet Discontinued 112 ug PO DAILY July 29, 2024 3:56pm July 29, 2024 4:36pm .5 pill on sunday Start: 08-12-2021 End: 11-07-2024 take 1 tablet by mouth once daily Levothyroxine 112 mcg tablet Discontinued 112 ug PO daily 96 3 August 05, 2024 7:24am November 07, 2024 12:34pm Start: 08-05-2020 End: 08-12-2021 take 1 tablet by mouth once daily Levothyroxine 100 mcg tablet Discontinued 100 ug PO DAILY 30 0 July 18, 2021 12:29pm August 12, 2021 8:17am Start: 05-02-2019 End: 08-05-2020 take 1 tablet by mouth once daily, then take 1 tablet by mouth once Levothyroxine 88 mcg tablet Discontinued 0 PO DAILY 96 0 April 29, 2020 1:58pm August 05, 2020 6:20pm 1 tab po sunday-sunday, 1.5 tab q sunday PO daily; Start: 03-02-2011 End: 07-26-2022 take 6 tablets by mouth every week levothyroxine (LEVOXYL) 125 mcg ORAL tablet Take by mouth. Take 6 1/2 pills weekly 90 tablet 4 03/02/2011 07/26/2022 Discontinued Comment on above: Take by mouth. Take 6 1/2 pills weekly Take 112 mcg by mout h once daily. meloxicam 15 mg oral tablet (6 sources) Nonsteroidal Anti-inflammatory Drug Start: 06-05-2019 take 15 mg by mouth once daily Meloxicam Active 15 MG PO DAILY June 05, 2019 1:00am Selenium (11 sources) Start: 04-04-2019 take 100 ug by mouth once daily Selenium Active 100 MCG PO DAILY April 04, 2019 4:21pm Start: 04-04-2019 take 100 ug by mouth once stuart y Selenium Active 100 MCG PO DAILY April 04, 2019 1:00am Selenium 100 mcg tablet (3 sources) Start: 04-04-2019 take 1 tablet by mouth once daily Selenium 100 mcg tablet Active 100 ug PO DAILY April 04, 2019 1:00am Completed/Discontinued Medications Medication Drug Class(es) Dates Sig (Normalized) Sig (Original) naltrexone hydrochloride 50 mg oral tablet (14 sources) Opioid Antagonist Start: 03-27-2019 End: 05-02-2019 take 1 tablet by mouth once daily as needed Naltrexone 50 mg tablet Discontinued 4.5 mg PO DAILY as needed March 27, 2019 1:00am May 02, 2019 5:14pm Start: 03-27-2019 End: 05-02-2019 take 4.5 mg by mouth once daily Naltrexone Discontinued 4.5 MG PO DAILY March 27, 2019 1:00am May 02, 2019 5:14pm penicillin v potassium 250 mg oral tablet (14 sources) Start: 09-25-2018 End: 03-27-2019 take 1 tablet by mouth four times daily Penicillin V Potassium 250 MG tablet Discontinued 250 mg PO 4 TIMES DAILY September 25, 2018 12:00am March 27, 2019 9:08am Selenium 100 mcg tab (1 source) take 1 tablet by mouth once daily Selenium 100 mcg tab Take 100 mcg by mouth once daily. 0 Active Comment on above: Take 100 mcg by mout h once daily. thyroid (mcc) 90 mg oral tablet (20 sources) Start: 03-27-2019 End: 05-02-2019 take 1 tablet by mouth once daily Thyroid (Pork) (Studio Engineer Thyroid) 90 mg tablet Discontinued 90 mg PO DAILY April 04, 2019 1:00am May 02, 2019 5:14pm Start: 03-27-2019 End: 04-04-2019 Thyroid (Pork) 15 mg tablet Discontinued PO 90 0 March 27, 2019 1:00am April 04, 2019 4:20pm Start: 03-27-2019 End: 04-04-2019 Thyroid (Pork) Discontinued PO 90 March 27, 2019 1:00am April 04, 2019 4:20pm vit C/zinc/Kginseng/isabel/hrb 62 (IMMUNE SUPPORT COMPLEX ORAL) (3 sources) vit C/zinc/Kgins eng/isabel/hrb62 (IMMUNE SUPPORT COMPLEX ORAL) Take by mouth as needed. 0 Active vit C/zinc/Kgins eng/isabel/hrb62 (IMMUNE SUPPORT COMPLEX ORAL) Take by mouth. 0 Active Comment on above: Take by mouth. Take by mouth as nee ded. Zinc (8 sources) Start: 01-03-2022 End: 07-29-2024 take 1 tablet by mouth once daily Zinc 50 mg Tablet Discontinued 50 mg PO DAILY January 03, 2022 12:00am July 29, 2024 3:56pm Start: 01-03-2022 take 50 mg by mouth once daily Zinc Active 50 MG PO DAILY January 03, 2022 12:00am Problems Active Problems Problem Classification Problem Date Documented Date Episodic/Chronic Abdominal hernia (12 sources) Incisional hernia; Translations: [Incisional hernia without obstruction or gangrene] Onset: 06-30-2022 Episodic Complications of surgical procedures or medical care (2 sources) Wound pain ; Translations: [Other postprocedural complications of skin and subcutaneous tissue] Onset: 02-06-2023 02-06-2023 Episodic Malaise and fatigue (19 sources) Fatigue; Translations: [Other fatigue] Episodic Other screening for suspected conditions (not mental disorders or infectious disease) (2 sources) Encounter for screening mammogram for malignant neoplasm of breast; Translations: [Encounter for screening mammogram for malignant neoplasm of breast] Onset: 01-19-2024 Episodic Other upper respiratory disease (8 sources) Hypertrophy of nasal turbinates; Translations: [Hypertrophy of nasal turbinates] 01-10-2022 Episodic Other upper respiratory disease (8 sources) Nasal congestion; Translations: [Nasal congestion] 01-10-2022 Episodic Other upper respiratory disease (8 sources) Deviated nasal septum; Translations: [Deviated nasal septum] 01-10-2022 Episodic Other upper respiratory disease (1 source) Hypertrophy of nasal turbinates; Translations: [Hypertrophy of nasal turbinates] Episodic Other upper respiratory disease (1 source) Nasal congestion; Translations: [Other disease of nasal cavity and sinuses] Episodic Other upper respiratory disease (1 source) Deviated nasal septum; Translations: [Deviated nasal septum] Episodic Other upper respiratory infections (9 sources) Chronic pansinusitis; Translations: [Chronic pansinusitis] Chronic Thyroid disorders (20 sources) Hypothyroidism; Translations: [Hypothyroidism, unspecified] Onset: 03-02-2011 Chronic Unclassified (1 source) Unknown / UNK(Unknown) Onset: 06-07-2017 Urinary tract infections (1 source) Urinary tract infection, site not specified; Translations: [Urinary tract infection, site not specified] Onset: 11-12-2024 Episodic Past or Other Problems Problem Classification Problem Date Documented Da te Episodic/Chronic Anal and rectal conditions (16 sources) Anal fissure; Translations: [Anal fissure, unspecified] Onset: 03-23-2006 03-23-2006 Episodic Gastrointestinal hemorrhage (8 sources) Hemorrhage of rectum and anus; Translations: [Hemorrhage of anus and rectum] Onset: 03-23-2006 03-23-2006 Episodic Other gastrointestinal disorders (1 source) Personal history of other diseases of the digestive system; Translations: [S/P hernia repair] Onset: 08-15-2022 Episodic Residual codes; unclassified (1 source) Other specified postprocedural states; Translations: [S/P hernia repair] Onset: 08-15-2022 Episodic Unclassified (1 source) R53.83 Onset: 06-07-2017 Results Test Name Value Interpretation Reference Range Facility Absolute lymphocyte countOrd ered By: Shalini Shahid on 12-04-2024 Lymphocytes Auto (Unsp spec) [#/Vol] 1.10 10*3/uL 0.83-4.51 [facility] Absolute neutrophil countOrd ered By: Shalini Shahid on 12-04-2024 Neutrophils (Bld) [#/Vol] 2.1 10*3/uL 2.0-7.7 [facility] Anion gap in Serum or Plasma Ordered By: Shalini Shahid on 12-04-2024 Anion gap [Moles/Vol] 14 mmol/L 5-15 [facility] Automated lymphocyte count a s percentage of total leukocytesOrdered By: Shalini Shahid on 12-04-2024 Lymphocytes/100 WBC Auto (Unsp spec) 30.4 % 19- [facility] BUN/creatinine ratioOrdered By: Shalini Shahid on 12-04-2024 Urea nitrogen/Creatinine [Mass ratio] 12.1 mg/mg 10-20 [facility] Basophil percentageOrdered B y: Shalini Shahid on 12-04-2024 Basophils/100 WBC (Bld) 1.1 % High 0-1 [facility] Bilirubin, totalOrdered By: Shalini Shahid on 12-04-2024 Bilirubin [Mass/Vol] 0.49 mg/dL 0.00-1.30 [facility] CBC W/Diff, Automatedon 11-18 Absolute Lymph 1.10 X10 3/uL Normal 0.83-4.51 [facility] Comment on above: Performed By: #### L 100.0100, L501.9520, L501.07974, L500.4050, L500.4100, L506.0400 #### [facility] [address] [place], [address] Absolute Neut 2.1 X10 3/uL Normal 2.0-7.7 [facility] Comment on above: Performed By: #### L 100.0100, L501.9520, L501.19010, L500.4050, L500.4100, L506.0400 #### [facility] [address] [place], [address] Basophils/100 WBC (Bld) 1.1 % High 0-1 [facility] Comment on above: Performed By: #### L 100.0100, L501.9520, L501.50890, L500.4050, L500.4100, L506.0400 #### [facility] [address] [place], [address] Eosinophils/100 WBC (Bld) 1.1 % Normal 0-5 [facility] Comment on above: Performed By: #### L 100.0100, L501.9520, L501.43650, L500.4050, L500.4100, L506.0400 #### [facility] [address] [place], [address] Erythrocyte distribution width (RBC) [Ratio] 13.2 % Normal 11.6-14.6 [facility] Comment on above: Performed By: #### L 100.0100, L501.9520, L501.36765, L500.4050, L500.4100, L506.0400 #### [facility] [address] [place], [address] Hematocrit (Bld) [Volume fraction] 40.3 % Normal 37-47 [facility] Comment on above: Performed By: #### L 100.0100, L501.9520, L501.32694, L500.4050, L500.4100, L506.0400 #### [facility] [address] [place], [address] Hemoglobin (Bld) [Mass/Vol] 13.6 g/dL Normal 12.0-15.0 [facility] Comment on above: Performed By: #### L 100.0100, L501.9520, L501.39092, L500.4050, L500.4100, L506.0400 #### [facility] [address] [place], [address] IG% 0.300 Normal 0.0-0.9 [facility] Comment on above: Result Comment: IG% - Immature Granulocytes (promyelocytes, myelocytes and metamyelocytes) > 1% indicates that a LEFT SHIFT is Present. Performed By: #### L 100.0100, L501.9520, L501.41320, L500.4050, L500.4100, L506.0400 #### [facility] [address] [place], [address] Lymphocytes/100 WBC (Bld) 30.4 % Normal 19-41 [facility] Comment on above: Performed By: #### L 100.0100, L501.9520, L501.15654, L500.4050, L500.4100, L506.0400 #### [facility] [address] [place], [address] MCH (RBC) [Entitic mass] 27.6 pg Normal 27.0-32.0 [facility] Comment on above: Performed By: #### L 100.0100, L501.9520, L501.21336, L500.4050, L500.4100, L506.0400 #### [facility] [address] [place], [address] MCHC (RBC) [Mass/Vol] 33.7 g/dL Normal 32-36 [facility] Comment on above: Performed By: #### L 100.0100, L501.9520, L501.57614, L500.4050, L500.4100, L506.0400 #### [facility] [address] [place], [address] MCV (RBC) [Entitic vol] 81.7 fL Normal 81-99 [facility] Comment on above: Performed By: #### L 100.0100, L501.9520, L501.66031, L500.4050, L500.4100, L506.0400 #### [facility] [address] [place], [address] Monocytes/100 WBC (Bld) 8.8 % Normal 0-10 [facility] Comment on above: Performed By: #### L 100.0100, L501.9520, L501.87065, L500.4050, L500.4100, L506.0400 #### [facility] [address] [place], [address] Neutrophils/100 WBC (Bld) 58.3 % Normal 47-70 [facility] Comment on above: Performed By: #### L 100.0100, L501.9520, L501.80837, L500.4050, L500.4100, L506.0400 #### [facility] [address] [place], [address] Nucleated RBC (Bld) [#/Vol] 0 10*3/uL Normal 0-5 [facility] Comment on above: Performed By: #### L 100.0100, L501.9520, L501.66161, L500.4050, L500.4100, L506.0400 #### [facility] [address] [place], [address] Platelet mean volume (Bld) [Entitic vol] 9.0 fL Normal 6.2-12.0 [facility] Comment on above: Performed By: #### L 100.0100, L501.9520, L501.76110, L500.4050, L500.4100, L506.0400 #### [facility] [address] [place], [address] Platelets (Bld) [#/Vol] 306 10*3/uL Normal 150-450 [facility] Comment on above: Performed By: #### L 100.0100, L501.9520, L501.68618, L500.4050, L500.4100, L506.0400 #### [facility] [address] [place], [address] RBC (Bld) [#/Vol] 4.93 10*6/uL Normal 4.2-5.4 [facility] Comment on above: Performed By: #### L 100.0100, L501.9520, L501.82103, L500.4050, L500.4100, L506.0400 #### [facility] [address] [place], [address] RDW SD 38.9 fl Normal 35.1-43.9 [facility] Comment on above: Performed By: #### L 100.0100, L501.9520, L501.41533, L500.4050, L500.4100, L506.0400 #### [facility] [address] [place], [address] WBC (Bld) [#/Vol] 3.6 10*3/uL Low 4.4-11.0 [facility] Comment on above: Performed By: #### L 100.0100, L501.9520, L501.35591, L500.4050, L500.4100, L506.0400 #### [facility] [address] [place], [address] Calculated very low density lipoprotein (VLDL) cholesterol measurementOrdered By: Shalini Shahid on 12-04-2024 Calculated very low density lipoprotein (VLDL) cholesterol measurement 17 mg/dL 5-40 [facility] Carbon dioxide, total [Moles /volume] in Central venous bloodOrdered By: Shalini Shahid on 12-04-2024 CO2 [Moles/Vol] 23.9 mmol/L 21.0-32.0 [facility] Chloride assayOrdered By: Carlin Shahid on 12-04-2024 Chloride [Moles/Vol] 96 mmol/L Low 98-108 [facility] Comprehensive Metabolic Prof ilon 12-04-2024 Albumin [Mass/Vol] 5.0 g/dL High 3.4-4.8 [facility] Comment on above: Performed By: #### L 100.0100, L501.9520, L501.16007, L500.4050, L500.4100, L506.0400 #### [facility] [address] [place], [address] Albumin/Globulin [Mass ratio] 1.6 {ratio} Normal 0.9-2.4 [facility] Comment on above: Performed By: #### L 100.0100, L501.9520, L501.45462, L500.4050, L500.4100, L506.0400 #### [facility] [address] [place], [address] ALK PHOS 75 U/L Normal 35-104 [facility] Comment on above: Performed By: #### L 100.0100, L501.9520, L501.20782, L500.4050, L500.4100, L506.0400 #### [facility] [address] [place], [address] ALT [Catalytic activity/Vol] 30 U/L Normal <=34 [facility] Comment on above: Performed By: #### L 100.0100, L501.9520, L501.50230, L500.4050, L500.4100, L506.0400 #### [facility] [address] [place], [address] AST [Catalytic activity/Vol] 25 U/L Normal <=31 [facility] Comment on above: Performed By: #### L 100.0100, L501.9520, L501.83595, L500.4050, L500.4100, L506.0400 #### [facility] [address] [place], [address] Bilirubin [Mass/Vol] 0.49 mg/dL Normal 0.00-1.30 [facility] Comment on above: Performed By: #### L 100.0100, L501.9520, L501.34373, L500.4050, L500.4100, L506.0400 #### [facility] [address] [place], [address] BUN/CRE 12.1 RATIO Normal 10-20 [facility] Comment on above: Performed By: #### L 100.0100, L501.9520, L501.73657, L500.4050, L500.4100, L506.0400 #### [facility] [address] [place], [address] Calcium [Mass/Vol] 10.1 mg/dL Normal 7.6-11.0 [facility] Comment on above: Performed By: #### L 100.0100, L501.9520, L501.12820, L500.4050, L500.4100, L506.0400 #### [facility] [address] [place], [address] Chloride [Moles/Vol] 96 mmol/L Low 98-108 [facility] Comment on above: Performed By: #### L 100.0100, L501.9520, L501.38922, L500.4050, L500.4100, L506.0400 #### [facility] [address] [place], [address] CO2 [Moles/Vol] 23.9 mmol/L Normal 21.0-32.0 [facility] Comment on above: Performed By: #### L 100.0100, L501.9520, L501.68463, L500.4050, L500.4100, L506.0400 #### [facility] [address] [place], [address] Creatinine [Mass/Vol] 0.55 mg/dL Low 0.70-1.20 [facility] Comment on above: Performed By: #### L 100.0100, L501.9520, L501.66953, L500.4050, L500.4100, L506.0400 #### [facility] [address] [place], [address] GAP 14 Normal 5-15 [facility] Comment on above: Performed By: #### L 100.0100, L501.9520, L501.45601, L500.4050, L500.4100, L506.0400 #### [facility] [address] [place], [address] GFR/1.73 sq M.predicted among non-blacks MDRD (S/P/Bld) [Vol rate/Area] 104 mL/min/{1.73_m2} Normal >60 [facility] Comment on above: Result Comment: mL/m in/1.73m2 CKD-EPI Creatinine Equation (2020) Performed By: #### L 100.0100, L501.9520, L501.33732, L500.4050, L500.4100, L506.0400 #### [facility] [address] [place], [address] Globulin (S) [Mass/Vol] 3.1 g/dL Normal 2.2-4.2 [facility] Comment on above: Performed By: #### L 100.0100, L501.9520, L501.69980, L500.4050, L500.4100, L506.0400 #### [facility] [address] [place], [address] Glucose [Mass/Vol] 95 mg/dL Normal 70-99 [facility] Comment on above: Performed By: #### L 100.0100, L501.9520, L501.26079, L500.4050, L500.4100, L506.0400 #### [facility] [address] [place], [address] Potassium [Moles/Vol] 4.1 mmol/L Normal 3.3-5.1 [facility] Comment on above: Performed By: #### L 100.0100, L501.9520, L501.67663, L500.4050, L500.4100, L506.0400 #### [facility] [address] [place], [address] Sodium [Moles/Vol] 134 mmol/L Normal 133-145 [facility] Comment on above: Performed By: #### L 100.0100, L501.9520, L501.25792, L500.4050, L500.4100, L506.0400 #### [facility] [address] [place], [place], [id number] T PROT 8.1 g/dL Normal 5.9-8.4 [facility] Comment on above: Performed By: #### L 100.0100, L501.9520, L501.88808, L500.4050, L500.4100, L506.0400 #### [facility] [address] [place], [place], [id number] Urea nitrogen [Mass/Vol] 7 mg/dL Normal 4-19 [facility] Comment on above: Performed By: #### L 100.0100, L501.9520, L501.74636, L500.4050, L500.4100, L506.0400 #### [facility] [address] [place], [place], [address] Eosinophil percentageOrdered By: Shalini Shahid on 12-04-2024 Eosinophils/100 WBC (Bld) 1.1 % 0-5 [facility] Erythrocyte distribution wid th ratioOrdered By: Shalini Shahid on 12-04-2024 Erythrocyte distribution width (RBC) [Ratio] 13.2 % 11.6-14.6 [facility] Erythrocyte distribution wid th standard deviationOrdered By: Shalini Shahid on 12-04-2024 Erythrocyte distribution width (RBC) [Ratio] 38.9 fl 35.1-43.9 [facility] Free T3on 12-04-2024 Free T3 [Mass/Vol] 2.5 pg/mL Normal 2.18-3.98 [facility] Comment on above: Performed By: #### L 100.0100, L501.9520, L501.00268, L500.4050, L500.4100, L506.0400 #### [facility] [address] [place], [address] Free [id number] By: Shalini aquino on 12-04-2024 Free T3 [Mass/Vol] 2.5 pg/mL 2.18-3.98 [facility] Glomerular filtration rate ( GFR) estimation/1.73 sq m using serum, plasma, or whole bOrdered By: Shalini Shahid on 12-04-2024 GFR/1.73 sq M.predicted among non-blacks MDRD (S/P/Bld) [Vol rate/Area] 104 mL/min/{1.73_m2} >60 [facility] Comment on above: mL/min/1.73m2 CKD-EP I Creatinine Equation (2020) Hematocrit Auto (Bld) [Volum e fraction]Ordered By: Shalini Shahid on 12-04-2024 Hematocrit (Bld) [Volume fraction] 40.3 % 37-47 [facility] Hemoglobin measurementOrdere d By: Shalini Shahid on 12-04-2024 Hemoglobin (Bld) [Mass/Vol] 13.6 g/dL 12.0-15.0 [facility] [facility]/100 WB C Auto (Bld)Ordered By: Shalini Shahid on 12-04-2024 Immature granulocytes/100 WBC (Bld) 0.300 % 0.0-0.9 [facility] Comment on above: IG% - Immature Granu locytes (promyelocytes, myelocytes and metamyelocytes) > 1% indicates that a LEFT SHIFT is Present. LDL calc ser/plasOrdered By: Shalini Shahid on 12-04-2024 Cholesterol in LDL [Mass/Vol] 165 mg/dL [facility] Comment on above: Bgznsxuuyd=326-915 m g/dL & Higher Jkqo=246 mg/dL or greater Laboratory - Chemistry and C hemistry - challengeOrdered By: Shalini Shahid on 12-04-2024 AST [Catalytic activity/Vol] 25 U/L <32 [facility] Lipid Profileon 12-04-2024 CHOL:HDL 2.58 Normal [facility] Comment on above: Performed By: #### L 100.0100, L501.9561, L501.33746, L500.4050, L500.4100, L506.0400 #### [facility] [address] [place], [address] Cholesterol [Mass/Vol] 297 mg/dL High <=200 [facility] Comment on above: Result Comment: Chol esterol level, Desirable <200 mg/dL Borderline high cholesterol 200-239 mg/dL High cholesterol >=240 mg/dL Recommendations of the NCEP Adult Treatment Panel for the following risk-cutoff thresholds for the [place] population. Performed By: #### L 100.0100, L501.9520, L501.35406, L500.4050, L500.4100, L506.0400 #### [facility] [address] [place], [address] Cholesterol in HDL [Mass/Vol] 115 mg/dL Normal [facility] Comment on above: Result Comment: Vandana onal Cholesterol Education Program (NCEP) guidelines: <40 mg/dL: Low HDL-cholesterol (major risk factor for CHD) >= 60 mg/dL: High HDL-cholesterol (negative risk factor for CHD) HDL-cholesterol is affected by a number of factors, e.g. smoking, exercise, hormones, sex and age. Performed By: #### L 100.0100, L501.9520, L501.17906, L500.4050, L500.4100, L506.0400 #### [facility] [address] [place], [address] Cholesterol in LDL [Mass/Vol] 165 mg/dL Normal [facility] Comment on above: Result Comment: Bord cwbkjg=267-696 mg/dL Higher Lihe=066 mg/dL or greater Performed By: #### L 100.0100, L501.9520, L501.19836, L500.4050, L500.4100, L506.0400 #### [facility] [address] [place], [address] Cholesterol in VLDL [Mass/Vol] 17 mg/dL Normal 5-40 [facility] Comment on above: Performed By: #### L 100.0100, L501.9520, L501.20079, L500.4050, L500.4100, L506.0400 #### [facility] [address] [facility] [place], [address] Triglyceride [Mass/Vol] 86 mg/dL Normal [facility] Comment on above: Result Comment: The drugs N-Acetylcysteine and Metamizole may falsely depress this assay. Normal range: <150 mg/dL Borderline High: 150-199 mg/dL High: 200-499 mg/dL Very High: >500 mg/dL Performed By: #### L 100.0100, L501.9520, L501.42493, L500.4050, L500.4100, L506.0400 #### [facility] [address] [place], [place], [id number] MCV (mean corpuscular volume ) determinationOrdered By: Shalini Shahid on 12-04-2024 MCV (RBC) [Entitic vol] 81.7 fL 81-99 [facility] Mean corpuscular hemoglobin (MCH) determinationOrdered By: Shalini Shahid on 12-04-2024 MCH (RBC) [Entitic mass] 27.6 pg 27.0-32.0 [facility] Mean corpuscular hemoglobin concentration (MCHC) determinationOrdered By: Shalini Shahid on 12-04-2024 MCHC (RBC) [Mass/Vol] 33.7 g/dL 32-36 [facility] Mean platelet volume determi nationOrdered By: Shalini Shahid on 12-04-2024 Platelet mean volume (Bld) [Entitic vol] 9.0 fL 6.2-12.0 [facility] Monocyte percentageOrdered B y: Shalini Shahid on 12-04-2024 Monocytes/100 WBC (Bld) 8.8 % 0-10 [facility] Neutrophil percentageOrdered By: Shalini Shahid on 12-04-2024 Neutrophils/100 WBC (Bld) 58.3 % 47-70 [facility] Nucleated red blood cell per centageOrdered By: Shalini Shahid on 12-04-2024 Nucleated RBC/100 WBC (Bld) [Ratio] 0 % 0-5 [facility] Platelet countOrdered By: Carlin Shahid on 12-04-2024 Platelets (Bld) [#/Vol] 306 10*3/uL 150-450 [facility] Potassium measurement (mass/ volume)Ordered By: Shalini Shahid on 12-04-2024 Potassium (Unsp spec) [Mass/Vol] 4.1 mmol/L 3.3-5.1 [facility] RBC Auto (Bld) [#/Vol]Ordere d By: Shalini Shahid on 12-04-2024 RBC (Bld) [#/Vol] 4.93 10*6/uL 4.2-5.4 [facility] Screening total cholesterol/ high density lipoprotein (HDL) cholesterol ratioOrdered By: Shalini Shahid on 12-04-2024 Cholesterol.total/Cholest ran in HDL [Mass ratio] 2.58 {ratio} [facility] Serum creatinine measurement (mass/volume)Ordered By: Shalini Shahid on 12-04-2024 Creatinine [Mass/Vol] 0.55 mg/dL Low 0.70-1.20 [facility] Serum globulin measurementOr dered By: Shalini Shahid on 12-04-2024 Globulin (S) [Mass/Vol] 3.1 g/dL 2.2-4.2 [facility] Serum glucose measurement (m ass/volume)Ordered By: Shalini Shahid on 12-04-2024 Glucose [Mass/Vol] 95 mg/dL 70-99 [facility] Serum or plasma alanine gardiner otransferase (ALT) measurementOrdered By: Shalini Shahid on 12-04-2024 ALT [Catalytic activity/Vol] 30 U/L <35 [facility] Serum or plasma albumin hu urement (mass/volume)Ordered By: Shalini Shahid on 12-04-2024 Albumin [Mass/Vol] 5.0 g/dL High 3.4-4.8 [facility] Serum or plasma albumin/glob ulin mass ratioOrdered By: Shalini Shahid on 12-04-2024 Albumin/Globulin [Mass ratio] 1.6 {ratio} 0.9-2.4 [facility] Serum or plasma alkaline randy sphatase measurementOrdered By: Shalini Shahid on 12-04-2024 ALP [Catalytic activity/Vol] 75 U/L 35-104 [facility] Serum or plasma calcium hu urement (mass/volume)Ordered By: Shalini Shahid on 12-04-2024 Calcium [Mass/Vol] 10.1 mg/dL 7.6-11.0 [facility] Serum or plasma cholesterol in HDL measurement (mass/volume)Ordered By: Shalini Shahid on 12-04-2024 Cholesterol in HDL [Mass/Vol] 115 mg/dL >40 [facility] Comment on above: National Cholesterol Education Program (NCEP) guidelines:<40 mg/dL: Low HDL-cholesterol (major risk factor for CHD)>= 60 mg/dL: High HDL-cholesterol (negative risk factor for CHD)HDL-cholesterol is affected by a number of factors, e.g. smoking, exercise, hormones, sex and age. Serum or plasma cholesterol measurement (mass/volume)Ordered By: Shalini Shahid on 12-04-2024 Cholesterol [Mass/Vol] 297 mg/dL High <201 [facility] Comment on above: Cholesterol level, D esirable <200 mg/dLBorderline high cholesterol 200-239 mg/dLHigh cholesterol >=240 mg/dLRecommendations of the NCEP Adult Treatment Panel for the following risk-cutoff thresholds for the [place] population. Serum or plasma urea nitroge n measurement (mass/volume)Ordered By: Shalini Shahid on 12-04-2024 Urea nitrogen [Mass/Vol] 7 mg/dL 4-19 [facility] Sodium levelOrdered By: Shalini Shahid on 12-04-2024 Sodium [Moles/Vol] 134 mmol/L 133-145 [facility] T4 Free Directon 12-04-2024 T4 FREE DIRECT 1.50 ng/dL High 0.76-1.46 [facility] Comment on above: Performed By: #### L 100.0100, L501.9520, L501.65716, L500.4050, L500.4100, L506.0400 #### [facility] [place], [address] T4 freeOrdered By: Shalini aquino on 12-04-2024 Free T4 [Mass/Vol] 1.50 ng/dL High 0.76-1.46 [facility] TSH DL <= 0.005 mIU/L QnOrde red By: Shalini Shahid on 12-04-2024 TSH Qn 0.684 uIU/mL 0.300-4.200 [facility] Thyroid Stim Hormone (TSH)on 12-04-2024 TSH 0.684 uIU/mL Normal 0.300-4.200 [facility] Comment on above: Performed By: #### L 100.0100, L501.9520, L501.31410, L500.4050, L500.4100, L506.0400 #### [facility] [address] [place], [place], [id number] Total proteinOrdered By: Chanel Shahid on 12-04-2024 Protein [Mass/Vol] 8.1 g/dL 5.9-8.4 [facility] Triglycerides measurementOrd ered By: Shalini Shahid on 12-04-2024 Triglyceride [Mass/Vol] 86 mg/dL <199 [facility] Comment on above: The drugs N-Acetylcy steine and Metamizole may falsely depress this assay. Normal range: <150 mg/dLBorderline High: 150-199 mg/dLHigh: 200-499 mg/dLVery High: >500 mg/dL White blood cell (WBC) count Ordered By: Shalini Shahid on 12-04-2024 WBC (Bld) [#/Vol] 3.6 10*3/uL Low 4.4-11.0 [facility] Hemoglobin A1con 11-06-2024 HbA1c (Bld) [Mass fraction] 5.6 % Normal <=5.6 [facility] Comment on above: Result Comment: Norm al < 5.7 % Prediabetic 5.7 - 6.4 % Diabetic >or= 6.5 % Please note range changes. Performed By: #### L 501.9985, L501.9310, L501.9520 #### [facility] [address] [place], [place], [address] Hemoglobin A1c percentageOrd ered By: Adelina Lopez on 11-06-2024 HbA1c (Bld) [Mass fraction] 5.6 % <5.7 [facility] Comment on above: Normal < 5.7 % Predi abetic 5.7 - 6.4 % Diabetic >or= 6.5 % Please note range changes. T4 Total, Thyroxinon 025 T4 [Mass/Vol] 10.2 ug/dL Normal 4.8-13.9 [facility] Comment on above: Performed By: #### L 506.0400, L501.9520 #### [facility] [address] [place], [place], [id number] TSH DL <= 0.005 mIU/L QnOrde red By: Adelina Lopez on 11-06-2024 TSH Qn 0.242 uIU/mL Low 0.300-4.200 [facility] Thyroid Stim Hormone (TSH)on 11-06-2024 TSH 0.242 uIU/mL Low 0.300-4.200 [facility] Comment on above: Performed By: #### L 506.0400, L501.9520 #### [facility] [address] [place], [place], [id number] ThyroxineOrdered By: Adelina Lopez on 11-06-2024 T4 [Mass/Vol] 10.2 ug/dL 4.8-13.9 [facility] T4 Free Directon 08-04-2024 T4 FREE DIRECT 1.70 ng/dL High 0.76-1.46 [facility] Comment on above: Performed By: #### L 506.0400, L501.9520 #### [facility] [address] [place], [place], [id number] T4 freeOrdered By: Morgan Razo on 08-04-2024 Free T4 [Mass/Vol] 1.70 ng/dL High 0.76-1.46 [facility] TSH DL <= 0.005 mIU/L QnOrde red By: Morgan Razo on 08-04-2024 Thyroid Stimulating Hormone (TSH) 0.206 uIU/mL Low 0.300-4.200 [facility] TSH Qn 0.206 uIU/mL Low 0.300-4.200 [facility] Thyroid Stim Hormone (TSH)on 08-04-2024 TSH 0.206 uIU/mL Low 0.300-4.200 [facility] Comment on above: Performed By: #### L 506.0400, L501.9520 #### [facility] [address] [place], [address] Endocrinology Visit Reporton 07-29-2024 Endocrinology Visit Report [facility] [address] [facility] [address] [place], [place] [address] OFFICE VISIT Date of Service: 07/29/24 MR#: [id number] Acct: [id number] Name: CANDICE MANDUJANO NEW Rep #: [id number] : 1965 Provider: Jojo Nunez Age/Sex: 59/F Location: [facility] Status: Signed Intake Vital Signs 07/31/23 15:49 07/29/24 15:50 Height 5 ft 6 in 5 ft 6 in Weight: 164 lb 4 oz BMI 26.5 BP 150/81 H Blood Pressure Location Rt brachial Position Sitting Pulse 71 Pulse Source Monitor Pulse Oximetry (%) 98 Oxygen Delivery Method room air Intake Visit Reasons: 1 Y FU Chief Complaint: Thyroid Is patient in pain?: No Allergies lansoprazole (From Prevacid) Allergy (Unknown, Verified 07/29/24 15:56) Upset Stomach Penicillins Allergy (Verified 07/29/24 15:56) Swelling propoxyphene (From Darvocet-N) Allergy (Verified 07/29/24 15:56) Unknown Medications ???Medication ???Instructions ???Recorded ???Confirmed ???Type cholecalciferol (vitamin D3) 125 5,000 unit PO DAILY 04/04/1907/29 History mcg (5,000 unit) capsule selenium 100 mcg tablet 100 mcg PO DAILY 04/04/19 07/29/24 History biotin 10,000 mcg capsule 10,000 mcg PO DAILY 08/05/2007/29 History levothyroxine 112 mcg tablet 112 mcg PO .qd, 1.5 on Sund #96 Rx tabs PFSH Medical History Wears glasses Alcohol use Arthritis Low iron Excessive bleeding Easy bruising Back pain History of IBS Heartburn Former smoker Leg cramps History of pain when walking History of edema History of stress test History of irregular heartbeat Chest pain Fatigue Hypothyroidism Hyperlipidemia Hypothyroidism Lumbar back pain Surgical History S/P nasal septoplasty H/O nasal polyp H/O colonoscopy S/P removal of ovarian cyst History of total abdominal hysterectomy and bilateral salpingo-oophorecto my H/O: Hx of cholecystectomy S/P thyroid biopsy H/O removal of cyst Family History Sister Ovarian cancer Daughter Ovarian cancer Mother Rheumatoid arthritis Hypertension Father CAD (coronary artery disease) Social History Smoking Status: Former smoker alcohol intake: current alcohol intake frequency: a few times a month substance use type: does not use HPI HPI Chief Complaint: Thyroid Details: CANDICE MANDUJANO, is a 59 F who presents to the office today for follow up. She has hypothyroidism and is taking levothyroxine. TSH was normal in November. It was elevated last Spring and we adjusted her dose. She is currently not feeling her best. She has increased fatigue. ROS Const Constitutional: Positive for fatigue; No weight change ENT ENT: No dizziness/vertigo Cardio Cardiology: No chest pain at rest, chest pain with exertion, shortness of breath or palpitations Skin Skin: No wounds Endo Endocrine: Positive for fatigue; No weight change Exam Const General: cooperative, healthy appearing, comfortable, no acute distress, well developed and not cushingoid Nutritional Appearance: well nourished Orientation: alert, awake and oriented x3 HENMT Head: normal to inspection Ears: hearing grossly normal bilaterally Nose: external nose normal Mouth: oral mucosae normal Eyes General: appearance normal, both eyes and all related structures Alignment and Position: alignment normal Periorbital: periorbital findings normal Eyelids: eyelids normal Conjunctivae: conjunctivae normal Neck Neck: normal visual inspection Neck mass: No Thyroid: thyroid normal Lymphatic: no lymphadenopathy noted Chest Chest palpation inspection: normal inspection of the chest Resp Effort Inspection: normal respiratory effort, able to speak in complete sentences, symmetric chest movement, no audible wheezes and no cough Auscultation: Bilateral: Clear to Auscultation Cardio Rate: regular rate Rhythm: regular rhythm Skin General: no rashes or lesions noted Neuro General: patient alert, patient awake and patient oriented x3 Cranial Nerves: CN's II-XI intact bilaterally Cognition: normal cognition Speech: speech normal Gait: normal gait Motor: muscle tone normal throughout Extrem General: no edema Psych Appearance: grossly normal Mental Status: mental status grossly normal Mood: congruent mood Affect: normal affect Speech and Movement: speech and movement normal Attitude: cooperative Thought Process: normal Thought Content: normal Judgment: judgment good Assessment and Plan Assessment and Plan (1) Hypothyroidism: Status: Chronic Qualif (more content not included)... Normal [facility] SCRN MAMM (CAD)W/BERE BILATo n 12-25-2023 SCRN MAMM (CAD)W/BEER BILAT [facility] Imaging Services [address] [place] [id number] SCRN MAMM (CAD)W/BERE BILAT MR#: [id number] Acct: [id number] Name: CANDICE MANDUJANO Rep #: [id number] : 1965 F 58 From: David byrd MD PCP: Dr. Shalini Shahid MD Status: [facility] Study: SCRN MAMM (CAD)W/BERE BILAT Date of Exam: 11/11 Exam# [id number] Ordering Dr: Shalini Shahid MD -[id number] MAMMOGRAPHY - BILATERAL SCREENING REASON FOR EXAM: Female, 58 years old. Routine annual screening examination. PERTINENT HISTORY: Non-contributory. TECHNIQUE: Digital bilateral breast bere (3D mammographic acquisition) in the CC and MLO projections. 2-D mediolateral oblique (MLO) and craniocaudad (CC) views of both breasts were obtained. CAD: Full Field Digital Mammography with Computer Added Detection was performed. COMPARISON: Comparison is made with prior study December 21, 2022 and March 14, 2019. FINDINGS: Breast Composition: The breasts are heterogeneously dense, which may obscure small masses. There are no dominant masses or suspicious calcifications. No other significant abnormalities are identified. There has been no significant change since the prior study. BI/SCRN MAMM (CAD)W/BEER BILAT IMPRESSION: Stable bilateral screening mammogram. Yearly follow-up mammogram recommended. (A) ASSESSMENT CATEGORY: BIRADS Category 1: Negative. A letter regarding these results will be sent to the patient by the facility within 30 days. Approximately 10% of breast cancers are not detected by mammography. A normal mammogram should not delay biopsy of a clinically suspicious abnormality. [id number] Electronically Signed: David Savage MD at 14:22 EDT , CC: Dr. Shalini Shahid MD Brancher: Signed Normal [facility] Basophil percentageOrdered B y: Shalini Shahid on 09-13-2023 Bilirubin [Mass/Vol] 0.40 mg/dL 0.20-1.00 [facility] Comment on above: For patients on eltr ombopag therapy, use of Dimension Sunset TBIL is not recommended. Chloride [Moles/Vol] 101 mmol/L 98-107 [facility] Cholesterol [Mass/Vol] 267 mg/dL <200 [facility] Comment on above: <200 mg/dL Desirable 200-240 mg/dL Borderline >240 mg/dL High Risk Glucose [Mass/Vol] 92 mg/dL 74-106 [facility] Hemoglobin (Bld) [Mass/Vol] 12.7 g/dL 12.0-15.0 [facility] Potassium [Moles/Vol] 4.6 mmol/L 3.5-5.1 [facility] Protein [Mass/Vol] 7.9 g/dL 6.4-8.2 [facility] Sodium [Moles/Vol] 136 mmol/L 136-145 [facility] Triglyceride [Mass/Vol] 81 mg/dL <199 [facility] Comment on above: The drugs N-Acetylcy steine and Metamizole may falsely depress this assay.Serum Triglycerides Reference Interval Normal <150 mg/dL Borderline high 150 - 199 mg/dL High 200 - 499 mg/dL Very High > or = 500 mg/dL WBC (Bld) [#/Vol] 5.0 10*3/uL 4.4-11.0 [facility] Determination of erythrocyte mean corpuscular volume (MCV)Ordered By: Shalini Shahid on 09-13-2023 MCV (RBC) [Entitic vol] 83.0 fL 81-99 [facility] Erythrocyte distribution wid th ratioOrdered By: Shalini Shahid on 09-13-2023 Erythrocyte distribution width (RBC) [Ratio] 13.6 % 11.6-14.6 [facility] Erythrocyte distribution wid th standard deviationOrdered By: Shalini Shahid on 09-13-2023 Erythrocyte distribution width (RBC) [Entitic vol] 41.1 fL 35.1-43.9 [facility] Hematocrit Auto (Bld) [Volum e fraction]Ordered By: Shalini Shahid on 09-13-2023 Hematocrit (Bld) [Volume fraction] 38.7 % 37-47 [facility] - Chemistry and C hemistry - challengeOrdered By: Shalini Shahid on 09-13-2023 Albumin/Globulin [Mass ratio] 1.0 {ratio} 0.9-2.4 [facility] ALP [Catalytic activity/Vol] 84 U/L 45-117 [facility] ALT [Catalytic activity/Vol] 60 U/L 13-56 [facility] Cholesterol in HDL [Mass/Vol] 124 mg/dL >40 [facility] Comment on above: The drugs N-Acetylcy steine and Metamizole may falsely depress this assay. Reference Range HDL <40 mg/dL Low HDL Cholesterol HDL >or= 60 mg/dL High HDL Cholesterol Cholesterol in LDL [Mass/Vol] 127 mg/dL 0-130 [facility] CO2 [Moles/Vol] 28.0 mmol/L 21.0-32.0 [facility] Globulin (S) [Mass/Vol] 3.9 g/dL 2.2-4.2 [facility] Urea nitrogen/Creatinine [Mass ratio] 24.6 mg/mg 10-20 [facility] - Hematology and Cell countsOrdered By: Shalini Shahid on 09-13-2023 MCH (RBC) [Entitic mass] 27.3 pg 27.0-32.0 [facility] MCHC (RBC) [Mass/Vol] 32.8 g/dL 32-36 [facility] Platelet mean volume (Bld) [Entitic vol] 9.4 fL 6.2-12.0 [facility] Platelets (Bld) [#/Vol] 351 10*3/uL 150-450 [facility] No Panel InformationOrdered By: Shalini Shahid on 09-13-2023 Anti-Nuclear Antibody Screen Negative Negative [facility] Comment on above: Performed at: [employer] [facility] [employer] [address] Director: Armaan Godinez PhD, Phone: [phone] Estimated GFR (MDRD) Amer 104 mL/min >60 [facility] Comment on above: GFR Calc Estimated GFR (MDRD) Non-Af Amer 86 mL/min >60 [facility] Comment on above: Non- GFR Calc Free Triiodothyronine (T3) pg/dL 1.8 pg/mL 2.18-3.98 [facility] VLDL Cholesterol 16 mg/dL 5-40 [facility] RBC Auto (Bld) [#/Vol]Ordere d By: Shalini Shahid on 09-13-2023 RBC (Bld) [#/Vol] 4.66 10*6/uL 4.2-5.4 [facility] Serum or plasma calcium hu urement (mass/volume)Ordered By: Shalini Shahid on 09-13-2023 Calcium [Mass/Vol] 9.5 mg/dL 8.5-10.1 [facility] Serum or plasma creatinine m easurement (mass/volume)Ordered By: Shalini Shahid on 09-13-2023 Creatinine [Mass/Vol] 0.73 mg/dL 0.55-1.02 [facility] Comment on above: The validity of the calculated GFR & GFRAA in patients over 70 years has not been determined. Clinical correlation is essential. Serum or plasma thyroid stim ulating hormone (TSH) measurement (units/volume)Ordered By: Shalini Shahid on 09-13-2023 TSH Qn 10.80 uIU/mL 0.358-3.74 [facility] Serum or plasma urea nitroge n measurement (mass/volume)Ordered By: Shalini Shahid on 09-13-2023 Urea nitrogen [Mass/Vol] 18 mg/dL 7-18 [facility] Thin prep Papanicolaou smear with manual screeningOrdered By: Shalini Shahid on 09-13-2023 Thin prep Papanicolaou smear with manual screening 4.0 g/dL 3.2-5.0 [facility] Thin prep Papanicolaou smear with manual screening 28 U/L 15-37 [facility] Thin prep Papanicolaou smear with manual screening 7 5-15 [facility] Thin prep Papanicolaou smear with manual screening 0.88 ng/dL 0.76-1.46 [facility] CNCOon 02-06-2023 CNCO Letter Text Normal [facility] CNOVon 02-06-2023 CNOV Office Visit (ALEJANDROS) ---- CANDICE MANDUJANO ([id number]) 1965 F Date Time Provider Department 02/06/23 8:45 AM BLU DUVAL During your visit today, we recorded the following information about you: Temperature Pulse Blood pressure Weight 98.5 degrees 75/minute 114/76 69.8 kg Height 1.676 m Kwesi Daniel LPN 02/06/2023 8:51 AM Signed REVIEW OF SYSTEMS: General: The patient denies fatigue, denies weight loss, NOTES weight gain, denies feeling hot, and denies feelings of cold. Eyes: The patient denies glaucoma, denies eye injury/surgery, wears glasses or contacts. Ear/Nose/Throat: The patient NOTES allergies, denies hayfever, denies ear infections, and denies bloody noses. Cardiovascular: The patient denies chest pain, denies heart disease, denies high blood pressure,denies cardiac stent, denies prior heart attack, denies irregular heart beat, denies high cholesterol, denies poor circulation, denies heart failure, other cardiac issues, denies claudication, denies cold feet, denies peripheral arterial stent. Respiratory: The patient denies tuberculosis, denies pneumonia, denies frequent cough, denies pulmonary embolism, denies shortness of breath, and denies coughing up blood. Gastrointestinal: The patient denies difficulty swallowing, denies acid reflux, denies ulcers, denies vomiting, denies jaundice/hepatitis, denies gallbladder problems, denies black or tarry stools, denies hemorrhoids, denies bleeding from rectum, denies diverticulitis, NOTES constipation, denies diarrhea, denies loss of stool control, and NOTES hernias. Kidney/Bladder: The patient denies kidney stones, denies urine infections, and denies bloody urine. Skin: The patient denies a history of skin cancer, denies bleeding/changing moles, and denies a history of skin rash. Neurologic: The patient denies a history of epilepsy/convulsion s, denies headaches, denies head/spinal injuries, and denies stroke/TIA. Psychiatric: The patient denies psychiatric medications, denies depression, and denies voices, denies substance abuse. Endocrine: The patient NOTES thyroid disorders, denies diabetes, and denies hormonal problems. Hematologic: The patient denies a history of bruising, denies bleeding, and denies anemia, denies blood clots. Infections: The patient denies a history of measles and mumps, denies rheumatic fever, and denies sexually transmitted diseases. Musculoskeletal: The patient denies back pain/injury, denies back problems, denies sciatica, denies knee/foot trouble, denies arthritis, or denies gout. When was patient's last Mammogram screening? 2022 Blu Duval MD 02/06/2023 9:03 AM Signed Subjective: Patient is status post an incisional hernia repair in [place] on 08/08/2022. She has noticed tightness and discomfort in the right lateral aspect of her incision she has not noticed any bulges. This came about after she was working in her garden. Been approximately a month. Objective:Blood pressure 114/76, pulse 75, temperature 36.9 ?C (98.5 ?F), height 167.6 cm (5' 6), weight 69.8 kg (153 lb 12.8 oz), SpO2 100 %. Incision is well-healed there is no signs of any infection I cannot palpate any recurrence of a hernia. Assessment:Incision al pain (primary encounter diagnosis) Plan: At this point I want her to just continue to gradually do stretching exercises in the upper abdominal area I think what she is experiencing is quite common particularly when she starts to increase her activities and breaking down of scar tissue. The fact that she has not noticed any bulge nor can I feel one at this time I do not really think were dealing with a recurrence. Allergies As of Date: 02/06/2023 Noted Allergy Reaction AMOXICILLIN 04/12/2005 DARVOCET A500 (PROPOXYPHENE N-CHANDRAKANT*04/12/2005 PENICILLINS 04/12/2005 PREVACID (LANSOPRAZOLE) 06/30/2022 14 - Other: See Comments Comments: Stomach cramps Date Reviewed: 02/06/2023 Reviewed by: Kwesi Daniel LPN - Fully Assessed Reason for Visit: Consult [173] Cmt: Hernia repair site pain Primary Visit Diagnosis:Incisiona l pain [L76.82] Prescriptions as of 02/06/2023 - levothyroxine (SYNTHROID) 112 mcg tablet Take 112 mcg by mouth once daily. 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 Eyes: The patient denies glaucoma, denies eye injury/surgery, wears glasses or contacts. Ear/Nose/Throat: The patient (more content not included)... [facility] CANDICE MANDUJANO ([id number]) 1965 F Date Time Provider Department 01/30/23 BLU DUVAL During your visit today, we recorded the following information about you: Jazz Mancilla 01/30/2023 4:09 PM Signed Patient reporting intermittent muscle spasms and burning sensation in the area of her hernia repair that was completed on 08/08/22. She states this has been ongoing about 4 weeks. She does a lot of lifting at work and at home. Please advise, Ashanti Franco MA, PA-C 02/01/2023 9:04 AM Signed Would have her follow up with Dr. Duval since she is several months out from repair Kwesi Daniel LPN 02/01/2023 10:45 AM Signed Patient scheduled for 02/06 with DP. Kwesi Daniel LPN Allergies As of Date: 01/30/2023 Noted Allergy Reaction AMOXICILLIN 04/12/2005 DARVOCET A500 (PROPOXYPHENE N-CHANDRAKANT*04/12/2005 PENICILLINS 04/12/2005 PREVACID (LANSOPRAZOLE) 06/30/2022 14 - Other: See Comments Comments: Stomach cramps Date Reviewed: 08/15/2022 Reviewed by: Ashanti Sampson PA-C - Fully Assessed Reason for Visit: Patient Question [7484] Prescriptions as of 02/01/2023 - levothyroxine (SYNTHROID) 112 mcg tablet Take 112 mcg by mouth once daily. 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] ANAL FISSURE [K60.2] 03/23/2006 PAIN ANUS [K62.89] 03/23/2006 RECTAL AND ANAL HEMORRHAGE [K62.5] 03/23/2006 Hypothyroidism [E03.9] 03/02/2011 Incisional hernia without obstruction or gangre*08/08/2022 Encounter Status:Closed by KWESI DANIEL on 02/01/23 Normal [facility] Basophil percentageOrdered B y: Shalini Shahid on 01-03-2023 Chloride [Moles/Vol] 99 mmol/L 98-107 [facility] Glucose [Mass/Vol] 78 mg/dL 74-106 [facility] Potassium [Moles/Vol] 4.3 mmol/L 3.5-5.1 [facility] Sodium [Moles/Vol] 132 mmol/L 136-145 [facility] Laboratory - Chemistry and C hemistry - challengeOrdered By: Shalini Shahid on 01-03-2023 CO2 [Moles/Vol] 26.0 mmol/L 21.0-32.0 [facility] Urea nitrogen/Creatinine [Mass ratio] 19.5 mg/mg 10-20 [facility] No Panel InformationOrdered By: Shalini Shahid on 01-03-2023 Estimated GFR (MDRD) Amer 128 mL/min >60 [facility] Comment on above: GFR Calc Estimated GFR (MDRD) Non-Af Amer 106 mL/min >60 [facility] Comment on above: Non- GFR Calc Serum or plasma calcium hu urement (mass/volume)Ordered By: Shalini Shahid on 01-03-2023 Calcium [Mass/Vol] 9.3 mg/dL 8.5-10.1 [facility] Serum or plasma creatinine m easurement (mass/volume)Ordered By: Shalini Shahid on 01-03-2023 Creatinine [Mass/Vol] 0.62 mg/dL 0.55-1.02 [facility] Comment on above: The validity of the calculated GFR & GFRAA in patients over 70 years has not been determined. Clinical correlation is essential. Serum or plasma urea nitroge n measurement (mass/volume)Ordered By: Shalini Shahid on 01-03-2023 Urea nitrogen [Mass/Vol] 12 mg/dL 7-18 [facility] Thin prep Papanicolaou smear with manual screeningOrdered By: Shalini Shahid on 01-03-2023 Thin prep Papanicolaou smear with manual screening 7 5-15 [facility] Laboratory - Chemistry and C hemistry - challengeOrdered By: Shalini Shahid on 12-20-2022 Sodium (U) [Moles/Vol] 35 mmol/L Not Establ. [facility] Thin prep Papanicolaou smear with manual screeningOrdered By: Shalini Shahid on 12-20-2022 Thin prep Papanicolaou smear with manual screening 277 mOsm/KG 275-295 [facility] Urine osmolality measurement Ordered By: Shalini Shahid on 12-20-2022 Osmolality (U) [Osmolality] 198 mOsm/KG >50 [facility] Comment on above: Normal Urine Referen ce Ranges Random: 50 - 1200 mOsm/kg H20 depending on fluid intake Random: >850 mOsm/kg after 12 hour fluid restriction 24 hour: ~300 - 900 mOsm/kg H2O Basophil percentageOrdered B y: Shalini Shahid on 12-15-2022 Bilirubin [Mass/Vol] 0.60 mg/dL 0.20-1.00 [facility] Comment on above: For patients on eltr ombopag therapy, use of Dimension [place] TBIL is not recommended. Chloride [Moles/Vol] 99 mmol/L 98-107 [facility] Cholesterol [Mass/Vol] 264 mg/dL <200 [facility] Comment on above: <200 mg/dL Desirable 200-240 mg/dL Borderline >240 mg/dL High Risk Glucose [Mass/Vol] 88 mg/dL 74-106 [facility] Potassium [Moles/Vol] 4.0 mmol/L 3.5-5.1 [facility] Protein [Mass/Vol] 8.4 g/dL 6.4-8.2 [facility] Sodium [Moles/Vol] 131 mmol/L 136-145 [facility] Triglyceride [Mass/Vol] 50 mg/dL <199 [facility] Comment on above: The drugs N-Acetylcy steine and Metamizole may falsely depress this assay.Serum Triglycerides Reference Interval Normal <150 mg/dL Borderline high 150 - 199 mg/dL High 200 - 499 mg/dL Very High > or = 500 mg/dL Laboratory - Chemistry and C hemistry - challengeOrdered By: Shalini Shahid on 12-15-2022 ALP [Catalytic activity/Vol] 79 U/L 45-117 [facility] ALT [Catalytic activity/Vol] 20 U/L 13-56 [facility] CO2 [Moles/Vol] 26.0 mmol/L 21.0-32.0 [facility] Free T4 [Mass/Vol] 1.32 ng/dL 0.76-1.46 [facility] Globulin (S) [Mass/Vol] 3.9 g/dL 2.2-4.2 [facility] Urea nitrogen/Creatinine [Mass ratio] 15.7 mg/mg 10-20 [facility] No Panel InformationOrdered By: Shalini Shahid on 12-15-2022 Estimated GFR (MDRD) Amer 139 mL/min >60 [facility] Comment on above: GFR Calc Estimated GFR (MDRD) Non-Af Amer 115 mL/min >60 [facility] Comment on above: Non- GFR Calc Thyroid Stimulating Hormone (TSH) 0.64 uIU/mL 0.358-3.74 [facility] Serum or plasma albumin hu urement (mass/volume)Ordered By: Shalini Shahid on 12-15-2022 Albumin [Mass/Vol] 4.5 g/dL 3.2-5.0 [facility] Serum or plasma albumin/glob ulin mass ratioOrdered By: Shalini Shahid on 12-15-2022 Albumin/Globulin [Mass ratio] 1.2 {ratio} 0.9-2.4 [facility] Serum or plasma calcium hu urement (mass/volume)Ordered By: Shalini Shahid on 12-15-2022 Calcium [Mass/Vol] 9.5 mg/dL 8.5-10.1 [facility] Serum or plasma cholesterol in HDL measurement (mass/volume)Ordered By: Shalini Shahid on 12-15-2022 Cholesterol in HDL [Mass/Vol] 118 mg/dL >40 [facility] Comment on above: The drugs N-Acetylcy steine and Metamizole may falsely depress this assay. Reference Range HDL <40 mg/dL Low HDL Cholesterol HDL >or= 60 mg/dL High HDL Cholesterol Serum or plasma cholesterol in VLDL measurement (mass/volume)Ordered By: Shalini Shahid on 12-15-2022 Cholesterol in VLDL [Mass/Vol] 10 mg/dL 5-40 [facility] Serum or plasma creatinine m easurement (mass/volume)Ordered By: Shalini Shahid on 12-15-2022 Creatinine [Mass/Vol] 0.57 mg/dL 0.55-1.02 [facility] Comment on above: The validity of the calculated GFR & GFRAA in patients over 70 years has not been determined. Clinical correlation is essential. Serum or plasma low density lipoprotein (LDL) cholesterol measurement (mass/volume)Ordered By: Shalini Shahid on 12-15-2022 Cholesterol in LDL [Mass/Vol] 136 mg/dL 0-130 [facility] Serum or plasma urea nitroge n measurement (mass/volume)Ordered By: Shalini Shahid on 12-15-2022 Urea nitrogen [Mass/Vol] 9 mg/dL 7-18 [facility] Thin prep Papanicolaou smear with manual screeningOrdered By: Shalini Shahid on 12-15-2022 Thin prep Papanicolaou smear with manual screening 15 U/L 15-37 [facility] Thin prep Papanicolaou smear with manual screening 6 5-15 [facility] CNPNon 08-28-2022 CNPN Telephone (AALIYAH) ---- CANDICE MANDUJANO ([id number]) 1965 F Date Time Provider Department 08/28/22 BLU DUVAL During your visit today, we recorded the following information about you: Edith Arroyo RN 08/28/2022 3:40 PM Signed Patient contacts office requesting SE[facility] notes and CT report from 06/2022 be faxed to the claims department of [facility] at [phone]. OV notes and CT report faxed as requested. Allergies As of Date: 08/28/2022 Noted Allergy Reaction AMOXICILLIN 04/12/2005 DARVOCET A500 (PROPOXYPHENE N-CHANDRAKANT*04/12/2005 PENICILLINS 04/12/2005 PREVACID (LANSOPRAZOLE) 06/30/2022 14 - Other: See Comments Comments: Stomach cramps Date Reviewed: 08/15/2022 Reviewed by: Ashanti Sampson PA-C - Fully Assessed Reason for Visit: Short Term Disability [Other] Prescriptions as of 08/28/2022 - levothyroxine (SYNTHROID) 112 mcg tablet Take 112 mcg by mouth once daily. Problem List As Of Date 08/28/2022 Noted Resolved Asymmetric Goiter [E04.0] ANAL FISSURE [K60.2] 03/23/2006 PAIN ANUS [K62.89] 03/23/2006 RECTAL AND ANAL HEMORRHAGE [K62.5] 03/23/2006 Hypothyroidism [E03.9] 03/02/2011 Incisional hernia without obstruction or gangre*08/08/2022 Encounter Status:Closed by EDITH ARROYO RN on 08/28/22 [facility] CNOVon 08-15-2022 CNOV Office Visit (GENSWS) ---- CANDICE MANDUJANO ([id number]) 1965 F Date Time Provider Department 08/15/22 2:00 PM ASHANTI SAMPSON During your visit today, we recorded the following information about you: Temperature Pulse Blood pressure Weight 97.8 degrees 84/minute 140/84 72.1 kg Height 1.676 m Ashanti Sampson PA-C 08/15/2022 2:52 PM Signed FOLLOW UP VISIT - HERNIA NAME: Candice Everettinger CLINIC NO.: [id number] DATE OF SERVICE: 08/15/2022 : 1965 REFERRING PHYSICIAN: Shalini Shahid MD Candice is a patient I am following with Dr. Duval for anincisional hernia. Dr. Duval performed an incisional hernia repair with mesh on 08/08/22. The patient currently notes no major complaints, other than was experiencing nausea [id number] opped taking percocet as felt this may have been causing it. She notes she is still eating and staying well hydrated. she denies fever, chills or abdominal pain. she does note some moderate incisional discomfort. she notes no bulges at the operative site VITALS: Blood pressure 140/84, pulse 84, temperature 36.6 ?C (97.8 ?F), height 167.6 cm (5' 6), weight 72.1 kg (159 lb), SpO2 100 %. General: patient is alert, cooperative, pleasant and in no acute distress On examination, the abdomen is benign. The incision is healing well without signs of infection or inflammation. There are no signs of recurrent hernia formation. Assessment IMPRESSION: status post incisional hernia repair with mesh PLAN: If the patient notes any problems, she should contact me immediately. she may return to her regular activities as tolerated, with the exception of no lifting greater than 20 pounds for the next 7 weeks. If patient feels the urge to cough or sneeze, they should brace against the repair site with their hands or a pillow. 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 Patient verbalized understanding of all above and agreed with the plan. JERARDO Kent PA-C 08/15/2022 2:40 PM Addendum -RTW 10/03/22 (8 weeks from surgery date) with no restrictions The following instructions are important for you related to your office visit today with the [facility]. INSTRUCTIONS FOLLOWING YOUR RECENT HERNIA SURGERY You should be returning to your regular diet, If you have having persistent issues with tolerating your diet, please contact our office It is not unusual to have incisional pain for the first 1-2 weeks following surgery. If this persists beyond 2 weeks, contact the office You should leave the Steri-Strips in place until they fall off. You may return to your regular activities. You may drive if you are no longer taking narcotic pain medication. Climbing stairs is fine. Walking in encouraged. Sitting up from bed may be uncomfortable. Sitting up using your lateral abdominal muscles (sitting up sideways) is usually more comfortable. You should perform no lifting greater than 20lbs for the next 6-7 weeks. Usually 8 weeks total from the date of surgery. It is not unusual to have loose stools following surgery. This is usually self limited and related to the antibiotics that were given during your surgical procedure. Fiber supplementation and yogurt with active cultures may help you return to regular bowel activity. If you note loose stools persisting for over 2 weeks, or significant cramping or loose bloody stools, contact the office immediately. Contact the office immediately if any of your incisions become increasingly tender, red or have drainage. Again, if you have any difficulties or concerns, contact our office immediately. If you note any additional difficulties, questions, or concerns, you should contact our office immediately @ [phone] and ask to be transferred to the General Surgery department. Referring Provider: SHALINI SHAHID [[id number]] Allergies As of Date: 08/15/2022 Noted Allergy Reaction AMOXICILLIN 04/12/2005 DARVOCET A500 (PROPOXYPHENE N-CHANDRAKANT*04/12/2005 PENICILLINS 04/12/2005 PREVACID (LANSOPRAZOLE) 06/30/2022 14 - Other: See Comments Comments: Stomach cramps Date Reviewed: 08/15/2022 Reviewed by: Ashanti Sampson PA-C - Fully Assessed Reason for Visit: Surgical Follow Up [176] Cmt: Hernia surgery Primary Visit Diagnosis:S/P hernia repair [Z98.890, Z87.19] Prescriptions as of 08/15/2022 - levothyroxine (SYNTHROID) 112 mcg tablet Take 112 mcg by mouth once daily. 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 Normal [facility] CNPNon 07-26-2022 CNPN Telephone (GENSWS) ---- CANDICE MANDUJANO ([id number]) 1965 F Date Time Provider Department 07/26/22 BLU DUVAL During your visit today, we recorded the following information about you: Giovana Irwin LPN 07/26/2022 11:53 AM Signed Patient called. Verified name and date of . States she would like to talk to general surgery staff regarding paperwork that Dr. Duval was to submit as she just received a email saying her surgery was declined. Giovana Lamb RN 07/26/2022 3:38 PM Signed Candice stopped in. Her claim through the [facility] has been denied, hence her surgery has been denied. Left voicemail for Scott Zaidi from [facility] to please return my call so I can ask some clarifying questions. FEDERICO Machuca LPN 07/27/2022 7:25 AM Signed Scott Bee called back and stated would call back at 8:15 this morning, to update. TAMARA Shah RN 07/27/2022 12:51 PM Signed Spoke with Scott Bee at [facility]. He advised that Candice's surgery was approved pending the allowance of her claim with the [facility]. Her claim was denied, so the surgery has been denied. Scott asked if the patient knew she could appeal the decision and I advised that, yes, she did know, but when I spoke with Candice at 1700 last night, she elected to proceed with surgery through her private insurance. Scott advised that if there was anything further that he could do to help with the claim, please let him know. FEDERICO Machuca 07/27/2022 10:55 AM Signed Patient is asking for hernia surgery scheduled 08/08/[address] Duval be ran through primary insurance - [employer] - since her [facility] claim was denied. Pre auth needs completed per [employer] insurance. Case message sent to [employer] in regards to this NOT being a workers comp claim now please update. Ju Raines Floral Design Teacher Valentina Melgar LPN 08/07/2022 2:13 PM Signed Faxed [facility] paperwork to [phone] TAMARA Shah LPN 08/15/2022 3:14 PM Signed Filled out and faxed [facility] Claim forms, copy given to patient at today's office visit. TAMARA Shah LPN 08/18/2022 4:22 PM Signed Refaxed [facility] paperwork to [facility] Source TAMARA Shah LPN 08/22/2022 11:11 AM Signed Patient called in requesting information regarding if office received to [facility] paperwork on Sunday. Please called patient with information. TAMARA Phillips LPN 08/22/2022 1:12 PM Signed Called patient stated paperwork needed updated to return to work on 10/03/22 instead of 10/01/22. Refaxed updated paper work. Allergies As of Date: 07/26/2022 Noted Allergy Reaction AMOXICILLIN 04/12/2005 DARVOCET A500 (PROPOXYPHENE N-CHANDRAKANT*04/12/2005 PENICILLINS 04/12/2005 PREVACID (LANSOPRAZOLE) 06/30/2022 14 - Other: See Comments Comments: Stomach cramps Date Reviewed: 07/26/2022 Reviewed by: Una Perez APRN.OIL PUMP STATION OPERATOR CHIEF - Fully Assessed Reason for Visit: Patient Question [3716] Prescriptions as of 08/22/2022 - levothyroxine (SYNTHROID) 112 mcg tablet Take 112 mcg by mouth once daily. 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 Author Type: Nurse Practitioner Type: HANDP Filed: 07/26/2022 4:13 PM Note Text: HISTORY AND PHYSICAL EXAMINATION SERVICE DATE: 07/26/2022 SERVICE TIME: 4:12 PM PRIMARY CARE PHYSICIAN: Shalini Shahid MD REASON FOR VISIT: Candice Mandujano is a 57 year old female who is scheduled for Procedure(s): HERNIORRHAPHY VENTRAL ADULT INITIAL REDUCIBLE 3cm-10cm (N/A) at the request of Dr. Blu Duval MD for consultation. My final recommendation will be communicated back to the requesting physician by way of shared medical record or letter. Subjective The patient has the following: ACTIVE PROBLEM LIST Asymmetric Goiter Anal Fissure PAIN ANUS Hemorrhage of Rectum and Anus Hypothyroidism COVID-19 Immunization Status Overdue - COVID-19 VACCINE (1) Overdue - never done No completion, postpone, frequency change, or communication history exists for this topic. CHIEF COMPLAINT: Pre-op exam HPI: Candice Mandujano is a 57 year old seen for PAC due to scheduled above surgery because of incisional hernia. 06/30/2022, Dr. Duval HPI: Candice is a 56 year old female with a complaint of a bulge and discomfort in her mid abdomen. The patient notes discomfort in this area with lifting, straining, and moving. The symptoms have increased, over the past few months. The patient works at [employer] in [facility]. She does a significant amount of heavy lifting. She really is unclear whether or not she did anything at work and she states that she is not pursuing Worker's Compensation. The patient notes no symptoms of bowel obstruction and denies nausea or vomiting. The patient was seen by her primary care physician who felt the patient has a hernia. Candice was referred for evaluation and treatment. The patient is being seen by me today at the request of Dr. Shalini Shahid MD for my opinion and advice regarding Incisional hernia, without obstruction or gangrene (primary encounter diagnosis). REVIEW OF SYSTEMS: General: No weight loss, malaise or fevers. Neurological: No history of TIA's, stroke, BOAT DETAILER tumor, impaired sensorium, hemiplegia, paraplegia or quadraplegia. No neurological symptoms or problems. Respiratory: +former smoker 0.5ppd/15 years/intermittentl y. No history of current cough or dyspnea, or pneumonia in the past 6 weeks. No history of respiratory/pulmona ry symptoms or problems. Cardiovascular: No history of HTN requiring medication, no history of angina, CHF, ND, cardiac surgery or stents. Denies rest pain, gangrene or revascularization/a mputation for PVD. No history of cardiovascular symptoms or problems. GI: See HPI. : No history of dysuria, frequency or incontinence, stones or chronic kidney disease. No difficulty urinating, nocturia > 1 time per night or hematuria. FAMILY CENTERED SPECIALIST: Negative for abnormal vaginal bleeding, abnormal vaginal discharge. Endocrine: Positive for: hypothyroidism (on rx). Negative for: diabetes mellitus. Hematology: No history of bleeding or clotting disorder. Patient is not taking anti-coagulation or platelet medications. No history of hematological symptoms or problems. Oncology: No history of CA metastasis, chemo within 30 days, or radiotherapy within 90 days. No history of oncological symptoms or problems. Psych: No history of psychiatric symptoms or problems. Musculoskeletal: Positive for: back pain and joint pain. Skin: Negative for lesions, rash and itching. PAST MEDICAL HISTORY Diagnosis Date Abdominal distention, non-gaseous Abdominal pain Acid reflux Atrophic vaginitis Back ache Bruxism Carpal tunnel syndrome, bilateral Dyspepsia Goiter, specified as simple Hallux valgus, bilateral Hemorrhoid History of neoplasm of uncertain behavior of uterus Hypercholesterolemi a Hypothyroid Irritable bowel Leucopenia Lumbar back pain Menopausal problem Myofascial pain Nevus, non-neoplastic Pain in hand Palpitations Jet's nails Thoracic back pain TMJ dysfunction TOS (thoracic outlet syndrome) PAST SURGICAL HISTORY Procedure Laterality Date BIOPSY THYROID DELIVERY ONLY , low cervical CHOLECYSTECTOMY Cholecystectomy COLONOSCOPY 2017 Dr. Gonzalez EXCISION OF CYST scalp LAPS ABD PRTMANDOMENTUM DX W/WO SPEC BR/WA SPX Laparoscopy PAST SURGICAL HISTORY OF 2011 lAPAROSCOPIC HYSTERECTOMY REMOVAL OF OVARIAN CYST(S) 1984 SIGMOIDOSCOPY FLX DX W/COLLJ SPEC BR/WA IF PFRMD 04/02/2006 flexible sigmoidoscopy SINUS SURGERY PROCEDURE 09/14/2021 nasal sinusotomy, balloon sinusplasty, polyp right sinus, cyst left sinus FAMILY HISTORY Problem Relation Age of Onset Rheumatologic disease Mother Hypertension Mother Heart Father Ischemic Heart Disease Father Ovarian cancer Sister Hypertension Brother Gout Brother Vertigo Brother Ovarian cancer Daughter No Known Problems (more content not included)... Normal [facility] CNPNon 07-03-2022 CNPN Telephone (ALEJANDROS) ---- CANDICE MANDUJANO ([id number]) 1965 F Date Time Provider Department 07/03/22 BLU DUVAL During your visit today, we recorded the following information about you: Giovana Irwin LPN 07/03/2022 8:08 AM Signed Patient called. Verified name and date of . Patient saw Dr. Duval on Sunday and has a hernia related to workers compensation. 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 She is not able to work at this time and her employer is wanting to know what her restrictions are until surgery. Please call patient to discuss. Giovana Daniel LPN 07/03/2022 9:33 AM Signed Spoke to patient, verified name and date of . Advised patient that no restrictions were given prior to surgery. Patient verbalized concern due to her lifting 40-70 lbs at work. Patient stated employer wants to know what her restrictions are. Patient will be pursuing workman's comp now. Notified patient I will let Dr. Duval know that she is pursuing workman's comp now and employer wants to know if she will have restrictions now. Patient verbalized understanding. Please review and advise. TAMARA Sawant LPN 07/03/2022 2:33 PM Signed Patient called stating she is filing workmen's comp, would like to know who fills out paperwork. Advised patient that Dr. Shahid PCP needs to start paperwork, our office will fill in our part as needed. Advised patient that procedure will need to be canceled until workmen comp is approved, finisher operator will reschedule procedure at later time. Advised patient Dr. Duval stated that she has NO restrictions prior to surgery. Patient verbalized understanding. TAMARA Sawant Jojo Varnervianey Roach 07/05/2022 4:13 PM Signed Patient called in stating she got a call that her consult to see Dr. Duval (completed on 06/30/2022) has been approved. Asked patient to contact [facility] to forward approved C-9 to office. Explained to patient that her upcoming elective surgery will need approval before surgery can take place. She verbalized understanding. She would like to have that process started. Sumaya Lamb RN 07/12/2022 2:08 PM Signed Received approved C-9 from [facility] for the general surgery consultation. [place] [id number] hernia repair with mesh, placed in Dr. Duval's box for signature. FEDERICO Machuca 07/13/2022 3:36 PM Signed Patient called in wanting to know if she is okay to schedule hernia surgery as she has not heard if workers comp is authorized. Please advise if patient can be scheduled... She is asking for date 08/08/2022 Ju Raines Floral Design Teacher Sumaya Lamb RN 07/13/2022 3:42 PM Signed C-[address] Duval's office, waiting on his signature. FEDERICO Machuca RN 07/14/2022 8:36 AM Signed C-9 signed. Faxed to Wendy Washburn at [facility] [phone]. Faxed C-9, Dr. Duval's surgical consultation note and the CT scan report. Fax confirmation sheet received. FEDERICO Machuca LPN 07/17/2022 8:28 AM Signed Patient called. Verified name and date of . Patient states that eIsha Tripp with [facility] called her and stated that the paperwork sent into them indicated that Dr. Duval put something on paperwork that said he didn't know if the injury was a result from her working or not. Patient understood that everything was approved for [facility] and is now concerned there will be issues due to what was indicated by Dr. Duval. Please call Iesha Tripp at [phone] to verify. Giovana Irwin LPN 07/17/2022 11:49 AM Signed Patient called. Verified name and date of . Patient would like to speak to someone in general surgery regarding the workers comp case. Aware that previous message has been sent. States when she saw provider she told him she wasn't sure if it was a workers comp case but because it happened due to lifting at work she filed case with her work. Giovana Irwin LPN Valentina MelgarTAMARA 07/17/2022 11:58 AM Signed Called and spoke to patient, informed patient we will call back tomorrow 07/18/22 to updated, after receiving WBC comp information. Sumaya Lamb RN 07/18/2022 10:10 AM Signed Spoke with Candice. Advised that I would have Dr. Duval add an addendum to his consultation notes, stating that she notified our office, after her visit, that she would be filing with the [facility]. However, Dr. Duval is on vacation this week and the first opportunity I will have for him to complete this will be Sunday, July 24, 2022. Candice voiced understanding and requested that I notify the [facility] and [facility]. Spoke with Iesha Joy At [facility], . Iesha advised that she would make a note in the file that we would be forwarding additional information on Sunday. Left voicemail for K (more content not included)... Normal [facility] CNOVon 06-30-2022 CNOV Office Visit (GENSWS) ---- CANDICE MANDUJANO ([id number]) 1965 F Date Time Provider Department 06/30/22 3:30 PM BLU DUVAL During your visit today, we recorded the following information about you: Temperature Pulse Blood pressure Weight 98.4 degrees 85/minute 138/70 72.6 kg Height 1.676 m Blu Duval III, MD 06/30/2022 4:20 PM Signed HISTORY AND PHYSICAL Candice Mandujano 1965 REFERRING PHYSICIAN: Shalini Shahid MD CHIEF COMPLAINT: Consult (Evaluate CT scan, possible hernia) HPI: Candice is a 56 year old female with a complaint of a bulge and discomfort in her mid abdomen. The patient notes discomfort in this area with lifting, straining, and moving. The symptoms have increased, over the past few months. The patient works at [employer] in [facility] [employer] [facility]. She does a significant amount of heavy lifting. She really is unclear whether or not she did anything at work and she states that she is not pursuing Worker's Compensation. The patient notes no symptoms of bowel obstruction and denies nausea or vomiting. The patient was seen by her primary care physician who felt the patient has a hernia. Candice was referred for evaluation and treatment. The patient is being seen by me today at the request of Dr. Shalini Shahid MD for my opinion and advice regarding Incisional hernia, without obstruction or gangrene (primary encounter diagnosis). PAST MEDICAL HISTORY Diagnosis Date Abdominal distention, non-gaseous Abdominal pain Acid reflux Atrophic vaginitis Back ache Bruxism Carpal tunnel syndrome, bilateral Dyspepsia Goiter, specified as simple Hallux valgus, bilateral Hemorrhoid History of neoplasm of uncertain behavior of uterus Hypercholesterolemi a Hypothyroid Irritable bowel Leucopenia Lumbar back pain Menopausal problem Myofascial pain Nevus, non-neoplastic Pain in hand Palpitations Jet's nails Thoracic back pain TMJ dysfunction TOS (thoracic outlet syndrome) PAST SURGICAL HISTORY Procedure Laterality Date BIOPSY THYROID DELIVERY ONLY , low cervical CHOLECYSTECTOMY Cholecystectomy COLONOSCOPY 2017 Dr. Gonzalez EXCISION OF CYST scalp LAPS ABD PRTMANDOMENTUM DX W/WO SPEC BR/WA SPX Laparoscopy PAST SURGICAL HISTORY OF 2011 lAPAROSCOPIC HYSTERECTOMY REMOVAL OF OVARIAN CYST(S) 1984 SIGMOIDOSCOPY FLX DX W/COLLJ SPEC BR/WA IF PFRMD 04/02/2006 flexible sigmoidoscopy SINUS SURGERY PROCEDURE 09/14/2021 nasal sinusotomy, balloon sinusplasty, polyp right sinus, cyst left sinus Current Outpatient Medications Medication Sig estradiol 2 mg tablet Take 2 mg by mouth once daily. levothyroxine (LEVOXYL) 125 mcg ORAL tablet Take by mouth. Take 6 1/2 pills weekly No current facility-administer ed medications for this visit. ALLERGIES: Amoxicillin, Darvocet A500 [Propoxyphene N-Acetaminophen], Penicillins, and Prevacid [Lansoprazole] PERSONAL HISTORY: Social History Tobacco Use Smoking status: Former Smokeless tobacco: Never Substance Use Topics Alcohol use: Yes FAMILY HISTORY: FAMILY HISTORY Problem Relation Age of Onset Heart Father REVIEW OF SYMPTOMS: The review of systems data was entered by the nurse and reviewed by me There are no exam notes on file for this visit. PHYSICAL EXAMINATION: General: The patient is 56 year old female, well nourished, well hydrated in no acute distress. The patient is oriented to time, place, and person. VITALS: Blood pressure 138/70, pulse 85, temperature 36.9 ?C (98.4 ?F), height 167.6 cm (5' 6), weight 72.6 kg (160 lb), SpO2 99 %. Body mass index is 25.82 kg/m?. HEENT: Normal cephalic, ataumatic, pupils are equally round, sclera are anicteric, mucous membranes are moist, oropharynx is clear. Neck has no masses, asymmetry or lymphadenopathy. Thyroid is unremarkable. Respiratory: Clear to auscultation and percussion. Normal respiratory excursion and pattern. Cardiac: Examination is regular rate and rhythm. Abdominal exam: Soft, nontender, with no palpable masses. No hepatosplenomegaly. A moderate reducible incisional hernia measuring approximately 3 to 4 cm Rectal exam: exam deferred Extremities: no clubbing, cyanosis or edema. No adenopathy. Other: LABORATORY VALUES: As Noted RADIOLOGIC STUDIES: As Noted Assessment IMPRESSION: prior midabdomin incisional hernia PLAN: My plan is to perform a incisional hernia repair with mesh. The planned surgical procedure was discussed extensively with the patient. The risks, benefits, anticipated outcomes and possible complications were mentioned. Candice sigalaands that all hernia repair surgery has a chance of recurrence and/or chronic post operative pain. My staff has also explained the procedure in understandable terms and the patient was given the option to take ashly (more content not included)... Normal [facility] Basophil percentageon 2021 Chloride [Moles/Vol] 104 mmol/L 98-107 [facility] Work Phone: Glucose [Mass/Vol] 85 mg/dL 74-106 [facility] Work Phone: Potassium [Moles/Vol] 4.3 mmol/L 3.5-5.1 [facility] Work Phone: Comment on above: Slight Hemolysis, Re sult may be falsely increased. Sodium [Moles/Vol] 137 mmol/L 136-145 [facility] Work Phone: Laboratory - Chemistry and C hemistry - challengeon 01-10-2022 CO2 [Moles/Vol] 28.0 mmol/L 21.0-32.0 [facility] Work Phone: Urea nitrogen/Creatinine [Mass ratio] 15.4 mg/mg 10-20 [facility] Work Phone: No Panel Informationon 01-10 Estimated Creatinine Clearance Calc 98.98 ml/min [facility] Work Phone: Estimated GFR (MDRD) Amer 136 mL/min >60 [facility] Work Phone: Comment on above: GFR Calc Estimated GFR (MDRD) Non-Af Amer 113 mL/min >60 [facility] Work Phone: Comment on above: Non- GFR Calc Serum or plasma calcium hu urement (mass/volume)on 01-10-2022 Calcium [Mass/Vol] 9.4 mg/dL 8.5-10.1 [facility] Work Phone: Serum or plasma creatinine m easurement (mass/volume)on 01-10-2022 Creatinine [Mass/Vol] 0.58 mg/dL 0.55-1.02 [facility] Work Phone: Comment on above: The validity of the calculated GFR & GFRAA in patients over 70 years has not been determined. Clinical correlation is essential. Serum or plasma urea nitroge n measurement (mass/volume)on 01-10-2022 Urea nitrogen [Mass/Vol] 9 mg/dL - [facility] Work Phone: Thin prep Papanicolaou smear with manual screeningon 01-10-2022 Thin prep Papanicolaou smear with manual screening 5 5-15 [facility] Work Phone: Basophil percentageon 2021 Bilirubin [Mass/Vol] 0.40 mg/dL 0.20-1.00 [facility] Work Phone: Comment on above: For patients on eltr ombopag therapy, use of Dimension Sunset TBIL is not recommended. Protein [Mass/Vol] 8.0 g/dL 6.4-8.2 [facility] Work Phone: WBC (Bld) [#/Vol] 5.8 10*3/uL 4.4-11.0 [facility] Work Phone: Blood erythrocytes count (nu mber/volume)on 01-05-2022 RBC (Bld) [#/Vol] 4.57 10*6/uL 4.2-5.4 [facility] Work Phone: Blood hemoglobin measurement (mass/volume)on 01-05-2022 Hemoglobin (Bld) [Mass/Vol] 12.6 g/dL 12.0-15.0 [facility] Work Phone: Blood platelet mean volumeon 01-05-2022 Platelet mean volume (Bld) [Entitic vol] 9.1 fL 6.2-12.0 [facility] Work Phone: Determination of erythrocyte mean corpuscular volume (MCV)on 01-05-2022 MCV (RBC) [Entitic vol] 82.7 fL 81-99 [facility] Work Phone: Direct bilirubinon 2 Bilirubin.direct [Mass/Vol] 0.09 mg/dL 0.00-0.30 [facility] Work Phone: Hematocrit Auto (Bld) [Volum e fraction]on 01-05-2022 Hematocrit (Bld) [Volume fraction] 37.8 % 37-47 [facility] Work Phone: INR in Blood by Coagulation assayon 01-05-2022 INR Coag (Bld) [Relative time] 0.9 {INR} [facility] Work Phone: Laboratory - Chemistry and C hemistry - challengeon 01-05-2022 ALP [Catalytic activity/Vol] 75 U/L 45-117 [facility] Work Phone: ALT [Catalytic activity/Vol] 32 U/L 13-56 [facility] Work Phone: Globulin (S) [Mass/Vol] 3.6 g/dL 2.2-4.2 [facility] Work Phone: Laboratory - Coagulationon 0 01-05-2022 aPTT Coag (Bld) [Time] 28.1 s 24.1-36.2 maulik [facility] Work Phone: PT Coag (PPP) [Time] 12.0 s 11.7-14.[address] [facility] Work Phone: Laboratory - Hematology and Cell countson 01-05-2022 Erythrocyte distribution width (RBC) [Entitic vol] 39.5 fL 35.1-43.9 [facility] Work Phone: Erythrocyte distribution width (RBC) [Ratio] 13.2 % 11.6-14.6 [facility] Work Phone: MCH (RBC) [Entitic mass] 27.6 pg 27.0-32.0 [facility] Work Phone: MCHC Auto (RBC) [Mass/Vol]on 01-05-2022 MCHC (RBC) [Mass/Vol] 33.3 g/dL 32-36 [facility] Work Phone: No Panel Informationon 01-05 Thyroid Stimulating Hormone (TSH) 1.57 uIU/mL 0.358-3.74 [facility] Work Phone: Platelets bldon 01-05-2022 Platelets (Bld) [#/Vol] 322 10*3/uL 150-450 [facility] Work Phone: Serum or plasma albumin hu urement (mass/volume)on 01-05-2022 Albumin [Mass/Vol] 4.4 g/dL 3.2-5.0 [facility] Work Phone: Thin prep Papanicolaou smear with manual screeningon 01-05-2022 Thin prep Papanicolaou smear with manual screening 19 U/L 15-37 [facility] Work Phone: CT ABD/PEL W IVCONon 09-28- 022 [facility] Basophil percentageon 2021 Amylase [Catalytic activity/Vol] 60 U/L 25-115 [facility] Work Phone: Bilirubin [Mass/Vol] 0.30 mg/dL 0.20-1.00 [facility] Work Phone: Comment on above: For patients on eltr ombopag therapy, use of Dimension Sunset TBIL is not recommended. Chloride [Moles/Vol] 99 mmol/L 98-107 [facility] Work Phone: Glucose [Mass/Vol] 86 mg/dL 74-106 [facility] Work Phone: Potassium [Moles/Vol] 4.3 mmol/L 3.5-5.1 [facility] Work Phone: Protein [Mass/Vol] 7.8 g/dL 6.4-8.2 [facility] Work Phone: Sodium [Moles/Vol] 133 mmol/L 136-145 [facility] Work Phone: WBC (Bld) [#/Vol] 5.6 10*3/uL 4.4-11.0 [facility] Work Phone: Blood erythrocytes count (nu mber/volume)on 09-23-2021 RBC (Bld) [#/Vol] 4.55 10*6/uL 4.2-5.4 [facility]: Blood hemoglobin measurement (mass/volume)on 09-23-2021 Hemoglobin (Bld) [Mass/Vol] 12.4 g/dL 12.0-15.0 [facility] Work Phone: Blood platelet mean volumeon 09-23-2021 Platelet mean volume (Bld) [Entitic vol] 9.0 fL 6.2-12.0 [facility] Work Phone: Determination of erythrocyte mean corpuscular volume (MCV)on 09-23-2021 MCV (RBC) [Entitic vol] 84.6 fL 81-99 [facility] Work Phone: Hematocrit Auto (Bld) [Volum e fraction]on 09-23-2021 Hematocrit (Bld) [Volume fraction] 38.5 % 37-47 [facility] Work Phone: Laboratory - Chemistry and C hemistry - challengeon 09-23-2021 ALP [Catalytic activity/Vol] 79 U/L 45-117 [facility] Work Phone: ALT [Catalytic activity/Vol] 41 U/L 13-56 [facility] Work Phone: CO2 [Moles/Vol] 28.0 mmol/L 21.0-32.0 [facility] Work Phone: Globulin (S) [Mass/Vol] 3.5 g/dL 2.2-4.2 [facility] Work Phone: Lipase [Catalytic activity/Vol] 189 U/L 73-393 [facility] Work Phone: Urea nitrogen/Creatinine [Mass ratio] 13.3 mg/mg 10-20 [facility] Work Phone: Laboratory - Hematology and Cell countson 09-23-2021 Erythrocyte distribution width (RBC) [Entitic vol] 40.5 fL 35.1-43.9 [facility] Work Phone: Erythrocyte distribution width (RBC) [Ratio] 13.1 % 11.6-14.6 [facility] Work Phone: MCH (RBC) [Entitic mass] 27.3 pg 27.0-32.0 [facility] Work Phone: MCHC Auto (RBC) [Mass/Vol]on 09-23-2021 MCHC (RBC) [Mass/Vol] 32.2 g/dL 32-36 [facility] Work Phone: No Panel Informationon 09-23 Estimated GFR (MDRD) Amer 153 mL/min >60 [facility] Work Phone: Comment on above: GFR Calc Estimated GFR (MDRD) Non-Af Amer 126 mL/min >60 [facility] Work Phone: Comment on above: Non- GFR Calc Platelets bldon 09-23-2021 Platelets (Bld) [#/Vol] 333 10*3/uL 150-450 [facility] Work Phone: Serum or plasma albumin hu urement (mass/volume)on 09-23-2021 Albumin [Mass/Vol] 4.3 g/dL 3.2-5.0 [facility] Work Phone: Serum or plasma albumin/glob ulin mass ratioon 09-23-2021 Albumin/Globulin [Mass ratio] 1.2 {ratio} 0.9-2.4 [facility] Work Phone: Serum or plasma calcium hu urement (mass/volume)on 09-23-2021 Calcium [Mass/Vol] 8.9 mg/dL 8.5-10.1 [facility] Work Phone: Serum or plasma creatinine m easurement (mass/volume)on 09-23-2021 Creatinine [Mass/Vol] 0.53 mg/dL 0.55-1.02 [facility] Work Phone: Comment on above: The validity of the calculated GFR & GFRAA in patients over 70 years has not been determined. Clinical correlation is essential. Serum or plasma urea nitroge n measurement (mass/volume)on 09-23-2021 Urea nitrogen [Mass/Vol] 7 mg/dL 7-18 [facility] Work Phone: Thin prep Papanicolaou smear with manual screeningon 09-23-2021 Thin prep Papanicolaou smear with manual screening 26 U/L 15-37 [facility] Work Phone: Thin prep Papanicolaou smear with manual screening 6 5-15 [facility] Work Phone: Laboratory - Chemistry and C hemistry - challengeon 08-10-2021 Cobalamin (Vitamin B12) [Mass/Vol] 408 pg/mL 211-911 [facility] Work Phone: Free T4 [Mass/Vol] 1.11 ng/dL 0.76-1.46 [facility] Work Phone: No Panel Informationon 08-10 Thyroid Stimulating Hormone (TSH) 4.15 uIU/mL 0.358-3.74 [facility] Work Phone: Vitamin D 25-Hydroxy 51.9 ng/mL [facility] Work Phone: Comment on above: Vitamin D 25(OH) Sta tus Range Deficiency <20 ng/mL (50nmol/L) Insufficiency 20 - 30 ng/mL (50 - 75 nmol/L) Sufficiency 30 - 100 ng/mL (75 - 250 nmol/L) Toxicity >100 ng/mL (>250 nmol/L) Serum or plasma ferritin rachel surement (mass/volume)on 08-10-2021 Ferritin [Mass/Vol] 57 ng/mL 8-252 [facility] Work Phone: Gram stain for investigation of transfusion reaction Microscopic observation Gram stain Nom (Unsp spec) [facility] Work Phone: No Panel Information Nasopharyngeal Culture No growth in 48 hours. [facility] Work Phone: Vital Signs Date Time Vital Sign Value Performing Clinician Facility 07-29-2024 15:50-0400 Body height 167.[address] Shalini Shahid MD Work Phone: [facility] 07-29-2024 15:50-0400 Body mass index (BMI) [Ratio] 26.5 kg/m2 Dr. Shalini Shahid MD Work Phone: [facility] 07-29-2024 15:50-0400 Body weight 74.[address] Shalini Shahid MD Work Phone: [facility] 07-29-2024 15:50-0400 Diastolic blood pressure 81 mm[Hg] Dr. Shalini Shahid MD Work Phone: [facility] 07-29-2024 15:50-0400 Heart rate 71 /min Dr. Shalini Shahid MD Work Phone: [facility] 07-29-2024 15:50-0400 SaO2% (BldA) [Mass fraction] 98 % Dr. Shalini Shahid MD Work Phone: [facility] 07-29-2024 15:50-0400 Systolic blood pressure 150 mm[Hg] Dr. Shalini Shahid MD Work Phone: [facility] 07-31-2023 15:49-0400 Body height 167.[address] Shalini Shahid Work Phone: [facility] 07-31-2023 15:49-0400 Body mass index (BMI) [Ratio] 25.9 kg/m2 Dr. Shalini Shahid Work Phone: [facility] 07-31-2023 15:49-0400 Body temperature 98.4 [degF] Dr. Shalini Shahid Work Phone: [facility] 07-31-2023 15:49-0400 Body weight 72.[address] Shalini Shahid Work Phone: [facility] 07-31-2023 15:49-0400 Diastolic blood pressure 60 mm[Hg] Dr. Shalini Shahid Work Phone: [facility] 07-31-2023 15:49-0400 Heart rate 70 /min Dr. Shalini Shahid Work Phone: [facility] 07-31-2023 15:49-0400 Respiratory rate 16 /min Dr. Shalini Shahid Work Phone: [facility] 07-31-2023 15:49-0400 SaO2% (BldA) [Mass fraction] 97 % Dr. Shalini Shahid Work Phone: [facility] 07-31-2023 15:49-0400 Systolic blood pressure 150 mm[Hg] Dr. Shalini Shahid Work Phone: [facility] 02-06-2023 08:48-0400 Body height 167.6 cm Blu Duval MD Work Phone: [facility] 02-06-2023 08:48-0400 Body temperature 98.49 [degF] Blu Duval MD Work Phone: [facility] 02-06-2023 08:48-0400 Body weight 69.76 kg Blu Duval MD Work Phone: [facility] 02-06-2023 08:48-0400 Diastolic blood pressure 76 mm[Hg] Blu Duval MD Work Phone: [facility] 02-06-2023 08:48-0400 Heart rate 75 /min Blu Duval MD Work Phone: [facility] 02-06-2023 08:48-0400 SaO2% (BldA) [Mass fraction] 100 % Blu Duval MD Work Phone: [facility] 02-06-2023 08:48-0400 Systolic blood pressure 114 mm[Hg] Blu Duval MD Work Phone: [facility] 07-26-2022 15:33-0500 Body height 167.6 cm Pacc 1 Work Phone: [facility] 07-26-2022 15:33-0500 Body temperature 98.4 [degF] Pacc 1 Work Phone: [facility] 07-26-2022 15:33-0500 Body weight 72.58 kg Pacc 1 Work Phone: [facility] 07-26-2022 15:33-0500 Diastolic blood pressure 68 mm[Hg] Pacc 1 Work Phone: [facility] 07-26-2022 15:33-0500 Heart rate 73 /min Pacc 1 Work Phone: [facility] 07-26-2022 15:33-0500 Respiratory rate 17 /min Pacc 1 Work Phone: [facility] 07-26-2022 15:33-0500 SaO2% (BldA) [Mass fraction] 98 % Pacc 1 Work Phone: [facility] 07-26-2022 15:33-0500 Systolic blood pressure 150 mm[Hg] Pacc 1 Work Phone: [facility] 06-30-2022 15:32-0500 Body height 167.6 cm Blu Duval MD Work Phone: [facility] 06-30-2022 15:32-0500 Body temperature 98.4 [degF] Blu Duval MD Work Phone: [facility] 06-30-2022 15:32-0500 Body weight 72.58 kg Blu Duval MD Work Phone: [facility] 06-30-2022 15:32-0500 Diastolic blood pressure 70 mm[Hg] Blu Duval MD Work Phone: [facility] 06-30-2022 15:32-0500 Heart rate 85 /min Blu Duval MD Work Phone: [facility] [facility] 15:32-0500 SaO2% (BldA) [Mass fraction] 99 % Blu Duval MD Work Phone: [facility] 06-30-2022 15:32-0500 Systolic blood pressure 138 mm[Hg] Blu Duval MD Work Phone: [facility] 01-10-2022 18:15-0400 Body temperature 97.6 [degF] [facility] Work Phone: 01-10-2022 18:15-0400 Diastolic blood pressure 75 mm[Hg] [facility] Work Phone: 01-10-2022 18:15-0400 Heart rate 73 /min [facility] Work Phone: 01-10-2022 18:15-0400 Respiratory rate 14 /min [facility] Work Phone: 01-10-2022 18:15-0400 SaO2% (BldA) [Mass fraction] 98 % [facility] Work Phone: 01-10-2022 18:15-0400 Systolic blood pressure 131 mm[Hg] [facility] Work Phone: 01-10-2022 16:15-0400 Inhaled oxygen flow rate 2 L/min [facility] Work Phone: 01-10-2022 11:53-0400 Body height 167.64 cm [facility] Work Phone: 01-10-2022 11:53-0400 Body mass index (BMI) [Ratio] 24.7 kg/m2 [facility] Work Phone: 01-10-2022 11:53-0400 Body weight 69.6 kg [facility] Work Phone: 08-10-2021 15:51-0400 Body height 167.[address] Shalini Shahid Work Phone: [facility] Work Phone: 08-10-2021 15:51-0400 Body mass index (BMI) [Ratio] 24.8 kg/m2 Dr. Shalini Shahid Work Phone: [facility] Work Phone: 08-10-2021 15:51-0400 Body temperature 96.7 [degF] Dr. Shalini Shahid Work Phone: [facility] Work Phone: 08-10-2021 15:51-0400 Body weight 69.[address] Shalini Shahid Work Phone: [facility] Work Phone: 08-10-2021 15:51-0400 Diastolic blood pressure 70 mm[Hg] Dr. Shalini Shahid Work Phone: [facility] Work Phone: 08-10-2021 15:51-0400 Heart rate 67 /min Dr. Shalini Shahid Work Phone: [facility] Work Phone: 08-10-2021 15:51-0400 Respiratory rate 16 /min Dr. Shalini Shahid Work Phone: [facility] Work Phone: 08-10-2021 15:51-0400 SaO2% (BldA) [Mass fraction] 98 % Dr. Shalini Shahid Work Phone: [facility] Work Phone: 08-10-2021 15:51-0400 Systolic blood pressure 130 mm[Hg] Dr. Shalini Shahid Work Phone: [facility] Work Phone: 08-10-2021 15:51-0400 Body height 167.[address] Shalini Shahid Work Phone: [facility] Work Phone: 08-10-2021 15:51-0400 Body mass index (BMI) [Ratio] 24.8 kg/m2 Dr. Shalini Shahid Work Phone: [facility] Work Phone: 08-10-2021 15:51-0400 Body temperature 96.7 [degF] Dr. Shalini Shahid Work Phone: [facility] Work Phone: 08-10-2021 15:51-0400 Body weight 69.[address] Shalini Shahid Work Phone: [facility] Work Phone: 08-10-2021 15:51-0400 Diastolic blood pressure 70 mm[Hg] Dr. Shalini Shahid Work Phone: [facility] Work Phone: 08-10-2021 15:51-0400 Heart rate 67 /min Dr. Shalini Shahid Work Phone: [facility] Work Phone: 08-10-2021 15:51-0400 Respiratory rate 16 /min Dr. Shalini Shahid Work Phone: [facility] Work Phone: 08-10-2021 15:51-0400 SaO2% (BldA) [Mass fraction] 98 % Dr. Shalini Shahid Work Phone: [facility] Work Phone: 08-10-2021 15:51-0400 Systolic blood pressure 130 mm[Hg] Dr. Shalini Shahid Work Phone: [facility] Work Phone: Encounters Encounter Date Encounter Type Care Provider Facility Start: 12-25-2024 ambulatory Shalini Shahid Facility:[facility] Start: 12-04-2024 End: 12-04-[address] Shalini Shahid MD Work Phone: -[facility] Start: 12-04-2024 End: 12-04-[address] Shalini Shahid MD -[facility] Start: 12-04-2024 End: 12-04-2024 ambulatory Shalini Shahid Facility:[facility] Start: 11-06-2024 End: 11-06-[address] Shalini Shahid MD Work Phone: [facility] Work Phone: Start: 11-06-2024 End: 11-06-2024 Patient encounter procedure Adelina Lopez [facility] -[facility] Start: 11-06-2024 End: 11-06-2024 ambulatory Shalini Shahid Facility:[facility] Start: 08-04-2024 End: 08-04-[address] Shalini Shahid MD Work Phone: [facility] Work Phone: Start: 08-04-2024 End: 08-04-[address] Morgan Razo MD -[facility] Work Phone: Start: 08-04-2024 End: 08-04-2024 ambulatory Shalini Shahid Facility:[facility] Start: 07-29-2024 End: 07-29-[address] Morgan Razo MD -[facility] Work Phone: Start: 07-29-2024 End: 07-29-2024 ambulatory Shalini Shahid Facility:[facility] Start: 12-25-2023 End: 12-25-2023 ambulatory Shalini Shahid Facility:[facility] Start: 09-13-2023 End: 09-13-[address] Shalini Shahid Work Phone: [facility] Work Phone: Start: 09-13-2023 End: 09-13-[address] Shalini Shahid Work Phone: [facility] Start: 07-31-2023 End: 07-31-[address] Shalini Shahid Work Phone: [facility] Work Phone: Start: 02-06-2023 End: 02-07-2023 ambulatory SHALINI SHAHID Facility:[facility] Start: 02-06-2023 End: 02-06-2023 Patient encounter procedure Blu Duval MD Work Phone: General Surgery Comment on above: Incisional pain (Ashly valentina Dx) Start: 01-30-2023 Telephone encounter Blu vega MD Work Phone: General Surgery Comment on above: Patient Question Start: 01-03-2023 End: 01-03-2023 ambulatory [facility] Work Phone: Start: 01-03-2023 End: 01-03-2023 Patient encounter procedure [facility] Start: 12-21-2022 End: 12-21-2022 Patient encounter procedure [facility] Work Phone: Start: 12-20-2022 End: 12-20-2022 ambulatory [facility] Work Phone: Start: 12-20-2022 End: 12-20-2022 Patient encounter procedure [facility] Start: 12-15-2022 End: 12-15-2022 ambulatory [facility] Work Phone: Start: 12-15-2022 End: 12-15-2022 Patient encounter procedure [facility] Start: 08-28-2022 Telephone encounter Blu vega MD Work Phone: General Surgery Comment on above: Short Term Disabilit y Start: 08-15-2022 End: 08-16-2022 ambulatory SHALINI SHAHID Facility:[facility] Start: 07-26-2022 End: 07-27-2022 ambulatory SHALINI SHAHID Facility:[facility] Start: 07-26-2022 Encounter for other preprocedural examination SHALINI SAHHID [facility] Start: 07-26-2022 End: 07-26-2022 Admission to [facility] Work Phone: [facility] Start: 07-26-2022 End: 07-26-2022 ambulatory [facility] 1 Work Phone: Pre Anesthesia Comment on above: Pre-operative examin ation (Primary Dx); Hypothyroidism, unspecified type Start: 07-26-2022 End: 07-26-2022 Preprocedural examination done [facility] 1 Work Phone: Pre Anesthesia Start: 07-03-2022 Telephone encounter Blu vega MD Work Phone: General Surgery Comment on above: Patient Question Start: 06-30-2022 End: 07-01-2022 ambulatory BLU DUVAL Facility:[facility] Start: 06-30-2022 End: 06-30-2022 Patient encounter procedure Blu Duval MD Work Phone: General Surgery Comment on above: Incisional hernia, w ithout obstruction or gangrene (Primary Dx) Start: 01-10-2022 End: 01-10-2022 Admission to same day surgery center [facility] Start: 01-10-2022 End: 01-10-2022 ambulatory [facility] Work Phone: Start: 12-08-2021 End: 12-08-2021 Patient encounter procedure [facility]-Cat Scan, [facility] Start: 12-02-2021 End: 12-02-[address] Shalini Shahid Work Phone: [facility]-Laboratory Start: 09-28-2021 End: 09-28-2021 Subsequent hospital visit by physician [facility] ([facility]) Work Phone: Cat Scan Start: 09-23-2021 End: 09-23-[address] Shalini Shahid [facility] Start: 08-15-2021 End: 08-15-[address] Shalini Shahid Work Phone: [facility]-Ultrasound, [facility] Start: 08-12-2021 End: 08-12-[address] Shalini Shahid Work Phone: [facility]-Cat Scan, [facility] Start: 08-10-2021 End: 08-10-[address] Shalini Shahid Work Phone: [facility]-Laboratory, [facility] Start: 06-07-2017 Ambulatory Keegan Salinas Ean Maggy y:[facility] Procedures Date Procedure Procedure Detail Performing Clinician Start: 12-21-2022 Screening mammography Start: 01-10-2022 Operation on accesso ry sinus Start: 12-08-2021 CT of face Start: 09-28-2021 Ct abdomen & pelvis w/contrast material [facility] Provider Start: 08-15-2021 US scan of thyroid Dr. Shalini Shahid Work Phone: Start: 08-12-[address] Shalini hutchins Work Phone: Investigation of transfusion reaction Dr. Shalini Shahid Work Phone: Nasopharyngeal Culture Dr. Sona Shahid Work Phone: Plan of Treatment Date Care Activity Detail Author Start: 01-19-2023 Influenza vaccination [facility] Start: 05-21-2022 DEPRESSION ASSESSMENT DEPRESSION ASSESSMENT [facility] Start: 01-19-2022 Influenza vaccination [facility] Start: 01-10-2022 Patient discharge [facility] Work Phone: Start: 07-19-2013 SHINGRIX VACCINE (1 of 2) SHINGRIX VACCINE (1 of 2) [facility] Start: 07-19-2008 COLOGUARD (FIT-DNA) COLOGUARD (FIT-DNA) [facility] Start: 07-19-2008 Colonoscopy COLONOSCOPY [facility] Start: 07-19-2008 COLORECTAL CANCER SCREENING COLORECTAL CANCER SCREENING [facility] Start: 07-19-[address] COLONOGRAPHY [facility] Start: 07-19-2008 DIABETES SCREEN DIABETES SCREEN [facility] Start: 07-19-2008 Diabetes Screening Diabetes Screening [facility] Start: 07-19-2008 FECAL OCCULT BLOOD FECAL OCCULT BLOOD [facility] Start: 07-19-2008 Lipid 1996 panel - Serum or Plasma Lipid Screening [facility] Start: 07-19-2008 LIPID SCREEN LIPID SCREEN [facility] Start: 03-01-2009 SIGMOIDOSCOPY SIGMOIDOSCOPY [facility] Start: 05-01-2008 PAP TESTING PAP TESTING [facility] Start: 02-20-2008 Urine microalbumin profile [facility] Start: 2003 Mammography [facility] Start: 07-19-1993 HPV TESTING HPV TESTING [facility] Start: 07-19-1981 ANNUAL PCP TEAM CHRONIC DISEASE VISIT ANNUAL PCP TEAM CHRONIC DISEASE VISIT [facility] Start: 07-19-1981 HEPATITIS C SCREENING HEPATITIS C SCREENING [facility] Start: 07-19-1981 HIV SCREENING HIV SCREENING [facility] Start: 1975 Adult depression screening assessment DEPRESSION SCREENING [facility] Start: 07-19-1968 COVID-19 VACCINE (#1) COVID-19 VACCINE (#1) [facility] Start: 01-20-1964 COVID-19 VACCINE (#1) COVID-19 VACCINE (#1) [facility] Start: 1965 HEPATITIS B (1 of 3 - 3-dose series) HEPATITIS B (1 of 3 - 3-dose series) [facility] Patient referral [facility] Work Phone: T4 free measurement [facility] Work Phone: Thyroid stimulating hormone measurement [facility] Work Phone: [facility] [place] [facility] Immunizations Immunization Date Immunization Notes Care Provider Devante mayes 09-25-2018 tetanus toxoid, redu david diphtheria toxoid, and acellular pertussis vaccine, adsorbed Dr. Shalini Shahid Work Phone: [facility] 02-19-2008 tetanus and diphther ia toxoids, not adsorbed, for adult use Ct ([facility]) Work Phone: [facility] Work Phone: Payers Date Payer Category Payer Unknown [id number] 2023 Self-pay [id number] 2022 Private Health Insurance [employer] OAP [id number] 2022-Present [phone] [address] [place] [address] Open Access [id number] 2022 Private Health Insurance [id number] 2021 Unknown [employer] PPO [id number] 2021-Present [phone] [address] [place] [address] PPO [id number] 2014 Private Health Insurance [id number] Unknown [id number] Unknown [id number] Unknown [facility] [id number] Unknown [id number] Unknown [id number] Unknown [id number] Unknown [id number] Unknown [id number] Unknown [id number] Social History Date Type Detail Facility Start: 08-10-2021 End: 07-31-2023 Tobacco smoking status NHIS Unknown if ever smoked [facility] Start: 1965 Sex Assigned At [facility] Start: 06-30-2022 End: 07-31-2023 Tobacco smoking status NHIS Ex-smoker [facility] Work Phone: Start: 04-26-2020 End: 02-06-2023 Alcohol intake Current drinker of alcohol (finding) [facility] Start: 1965 Sex Assigned At Not on file [facility] End: 05-21-2003 History of tobacco use Current smoker [facility] End: 05-21-2003 History of tobacco use Cigarette Smoker [facility] Start: 06-30-2022 End: 07-26-2022 Tobacco use and exposure Smokeless tobacco non-user [facility] Start: 06-30-2022 Alcohol Comment social [facility] Start: 07-26-2022 End: 02-06-2023 Cigarettes smoked current (pack per day) - Reported 0.5 [facility] Start: 08-15-2022 End: 02-06-2023 Tobacco use panel [facility] National Score (1-10 0), lower number is lower risk 46 [facility] Start: 07-13-2022 Gender identity Identifies as female gender (finding) [facility] Start: 07-13-2022 Sexual orientation Heterosexual (fin ding) [facility] Start: 08-13-2024 Sex Female (finding) [facility] Medical Equipment Procedure Code Equipment Code Equipment Origin al Text Equipment Identifier Dates FESS (functional endoscopic sinus surgery) Plant polysaccharide haemostatic agent, bioabsorbable [id number] FDA Start: 01-10-2022 Mesh Parietex 4. 6cm Small Collagen Surgical Patch [facility] Resorbable - [id number] Start: 08-08-2022 Goals Date Patient Goal Desired Activity /State Mental Status Date Assessment Result Facility 01-10-2022 Cognitive function Voice/Name [facility] Work Phone: Clinical Notes 09-28-2021 to 07-29-2024 Note Date & Type Note Facility 07-29-2024 Evaluation note Diagnosis Onset Date Resolution Hypothyroidism chronic July 3:54pm [facility] Work Phone: [phone] 316-102509-19-2023 NoteHNO ID: [id number] Author: Blu Duval MD Service: ? Author Type: Physician Type: Progress Notes Filed: 02/06/2023 9:03 AM Note Text: Subjective: Patient is status post an incisional hernia repair in [place] on 08/08/2022. She has noticed tightness and discomfort in the right lateral aspect of her incision she has not noticed any bulges. This came about after she was working in her garden. Been approximately a month. Objective:Blood pressure 114/76, pulse 75, temperature 36.9 ?C (98.5 ?F), height 167.6 cm (5' 6), weight 69.8 kg (153 lb 12.8 oz), SpO2 100 %. Incision is well-healed there is no signs of any infection I cannot palpate any recurrence of a hernia. Assessment:Incisional pain (primary encounter diagnosis) Plan: At this point I want her to just continue to gradually do stretching exercises in the upper abdominal area I think what she is experiencing is quite common particularly when she starts to increase her activities and breaking down of scar tissue. The fact that she has not noticed any bulge nor can I feel one at this time I do not really think were dealing with a recurrence.[facility]09-[facility]-20[facility] History of Present illness Narrative* Blu Duval MD - 02/06/2023 8:59 AM EDT Subjective: Patient is status post an incisional hernia repair in [place] on 08/08/2022. She has noticed tightness and discomfort in the right lateral aspect of her incision she has not noticed any bulges. This came about after she was working in her garden. Been approximately a month. Objective:Blood pressure 114/76, pulse 75, temperature 36.9 C (98.5 F), height 167.6 cm (5' 6), weight 69.8 kg (153 lb 12.8 oz), SpO2 100 %. Incision is well-healed there is no signs of any infection I cannot palpate any recurrence of a hernia. Assessment:Incisional pain (primary encounter diagnosis) Plan: At this point I want her to just continue to gradually do stretching exercises in the upper abdominal area I think what she is experiencing is quite common particularly when she starts to increase her activities and breaking down of scar tissue. The fact that she has not noticed any bulge norcan I feel one at this time I do not really think were dealing with a recurrence. [facility] Nurse Note* Kwesi DanielTAMARA - 02/06/2023 8:49 AM EDT REVIEW OF SYSTEMS: General: The patient denies fatigue, denies weight loss, NOTES weight gain, denies feeling hot, anddenies feelings of cold. Eyes: The patient denies glaucoma, denies eye injury/surgery, wears glasses or contacts. Ear/Nose/Throat: The patient NOTES allergies, denies hayfever, denies ear infections, and denies bloody noses. Cardiovascular: The patient denies chest pain, denies heart disease, denies high blood pressure,denies cardiac stent, denies prior heart attack, denies irregular heart beat, denies high cholesterol, denies poor circulation, denies heart failure, other cardiac issues, denies claudication, denies cold feet, denies peripheral arterial stent. Respiratory: The patient denies tuberculosis, denies pneumonia, denies frequent cough, denies pulmonary embolism, denies shortness of breath, and denies coughing up blood. Gastrointestinal: The patient denies difficulty swallowing, denies acid reflux, denies ulcers, denies vomiting, denies jaundice/hepatitis, denies gallbladder problems, denies black or tarry stools, denies hemorrhoids, denies bleeding from rectum, denies diverticulitis, NOTES constipation, denies diarrhea, denies loss of stool control, and NOTES hernias. Kidney/Bladder: The patient denies kidney stones, denies urine infections, and denies bloody urine. Skin: The patient denies a history of skin cancer, denies bleeding/changing moles, and denies a history of skin rash. Neurologic: The patient denies a history of epilepsy/convulsions, denies headaches, denies head/spinal injuries, and denies stroke/TIA. Psychiatric: The patient denies psychiatric medications, denies depression, and denies voices, denies substance abuse. Endocrine: The patient NOTES thyroid disorders, denies diabetes, and denies hormonal problems. Hematologic: The patient denies a history of bruising, denies bleeding, and denies anemia, denies blood clots. Infections: The patient denies a history of measles and mumps, denies rheumatic fever, and denies sexually transmitted diseases. Musculoskeletal: The patient denies back pain/injury, denies back problems, denies sciatica, deniesknee/foot trouble, denies arthritis, or denies gout. When was patient's last Mammogram screening? 2022 [facility] Miscellaneous Notes* Telephone Encounter - Kwesi Daniel LPN - 02/01/2023 10:45 AM EDT Patient scheduled for 02/06 with DP. Kwesi Daniel LPN * Telephone Encounter - Ashanti Sampson PA-C - 02/01/2023 9:04 AM EDT Would have her follow up with Dr. Duval since she is several months out from repair * Telephone Encounter - Jazz Mancilla - 01/30/2023 4:06 PM EDT Patient reporting intermittent muscle spasms and burning sensation in the area of her hernia repairthat was completed on 08/08/22. She states this has been ongoing about 4 weeks. She does a lot of lifting at work and at home. Please advise, Jazz Mancilla MA [facility] Miscellaneous Notes* Telephone Encounter - Edith Arroyo RN - 08/28/2022 3:39 PM EDT Patient contacts office requesting [facility] notes and CT report from 06/2022 be faxed to the claims department of [facility] at [phone]. OV notes and CT report faxed as requested. [facility] in [facility]-2023 NoteHNO ID: [id number] Author: Ashanti Sampson PA-C Service: ? Author Type: Physician Office Receptionist Type: Progress Notes Filed: 08/15/2022 2:52 PM Note Text: FOLLOW UP VISIT - HERNIA NAME: Candice Uribe [facility] NO.: [id number] DATE OF SERVICE: 08/15/2022 : 1965 REFERRING PHYSICIAN: Shalini Shahid MD Candice is a patient I am following with Dr. Duval for anincisional hernia. Dr. Duval performed an incisional hernia repair with mesh on 08/08/22. The patient currently notes no major complaints, other than was experiencing nausea [id number] taking percocet as felt this may have been causing it. She notes she is still eating and staying well hydrated. she denies fever, chills or abdominal pain. she does note some moderate incisional discomfort. she notes no bulges at the operative site VITALS: Blood pressure 140/84, pulse 84, temperature 36.6 ?C (97.8 ?F), height 167.6 cm (5' 6), weight 72.1 kg (159 lb), SpO2 100 %. General: patient is alert, cooperative, pleasant and in no acute distress On examination, the abdomen is benign. The incision is healing well without signs of infection or inflammation. There are no signs of recurrent hernia formation. Assessment IMPRESSION: status post incisional hernia repair with mesh PLAN: If the patient notes any problems, she should contact me immediately. she may return to her regular activities as tolerated, with the exception of no lifting greater than 20 pounds for the next 7 weeks. If patient feels the urge to cough or sneeze, they should brace against the repair site with their hands or a pillow. 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 Patient verbalized understanding of all above and agreed with the plan. NARCISO [facility]03-08-2023 Instructions* Patient Instructions* Una Perez APRN.OIL PUMP STATION OPERATOR CHIEF - 07/26/2022 3:52 PM EST PATIENT PREOPERATIVE INSTRUCTIONS No ref. provider found has scheduled you for your procedure at this surgery center: [facility]: [phone] -- [address], [place] [address]. Please read below carefully for your personalized instructions. Dietary Restrictions: - No solid food after midnight. - You may have 12 ounces of clear liquids (water, clear juices such as apple juice or gatorade, carbonated beverages, clear tea, black coffee, jello) until 2 hours before scheduled arrival at facility. No red/purple coloring and no creamer/sugar Medications: Unless instructed differently below, stay on all of your medications until your surgery. Approved medications to take the morning of surgery with a sip of water: levothyroxine (SYNTHROID) If you start any new medications after today's visit, please contact the surgeon's office. Blood Thinning Medications: - Stop NSAIDS (Ibuprofen, Advil, Aleve, Motrin, Celebrex, Mobic, etc.) 7 days before surgery, as directed by your surgeon. - Stop Aspirin 7 days before surgery, as directed by your surgeon. - Stop Vitamin E, ALL multi-vitamins, herbals and dietary supplements 7 days before surgery. - You may take Tylenol (Acetaminophen) or any of your pain medications that do not contain aspirin or NSAIDS as needed. Important Reminders: - Candy, mints, and tobacco products are NOT permitted the morning of surgery. - Hearing aids, dentures and glasses may be worn the morning of surgery. - NO jewelry, body piercings, makeup, hairpins or contacts are to be worn the day of surgery. If you develop symptoms such as a fever, cold, or flu, or have other changes to your health within TWO DAYS of scheduled surgery or the morning of surgery, please contact the surgery center above. Personal Belongings: -Please have photo ID and insurance cards. -If you do not have a copy of advance directives on file with us, please bring a copy with you on the day of surgery. - Leave ALL valuables and money at home or with family members. For Outpatient Procedures: - YOU MUST HAVE A RESPONSIBLE ASBESTOS SHINGLE ROOFER TAKE YOU HOME. A PEARL DIGGER OR INTERACTIVE DIGITAL MEDIA SPECIALIST CANNOT BE MADE A RESPONSIBLE ASBESTOS SHINGLE ROOFER. - We recommend that a responsible person stays with you overnight to take care of you. - You cannot stay in a hotel alone after outpatient surgery. You will not be permitted to have yoursurgery, if you do not have someone to take care of you. Arrival Time for Surgery: - The Surgery Center or hospital where you are having surgery will call the afternoon before surgery (or Sunday for Sunday surgery) with a scheduled arrival time. - If you have not heard by 4 pm, please contact the surgery center above. Please be aware that emergency situations arise, which may delay or change your surgical time. If this happens, we will notify you as soon as possible and regret any inconvenience. If you already have an Advance Directive, please fax a copy to [phone] or email to for it to be added to your chart. If you do not have an Advance Directive, you can find the appropriate form and more information at [email or web address]. We recommend that youcomplete the Advance Directive form found on the website and bring it with you the day of your surgery. It can be witnessed and scanned into your chart that day. Una Perez APRN.CNP documented in this encounterHenry [facility]03-[facility] History and physical note * Una Perez APRN.CNP - 07/26/2022 3:51 PM EST HISTORY AND PHYSICAL EXAMINATION SERVICE DATE: 07/26/2022 SERVICE TIME: 4:12 PM PRIMARY CARE PHYSICIAN: Shalini Shahid MD REASON FOR VISIT: Candice Mandujano is a 57 year old female who is scheduled for Procedure(s): HERNIORRHAPHY VENTRAL ADULT INITIAL REDUCIBLE 3cm-10cm (N/A) at the request of Dr. Blu Duval MD for consultation. My final recommendation will be communicated back to the requesting physicianby way of shared medical record or letter. Subjective The patient has the following: ACTIVE PROBLEM LIST Asymmetric Goiter Anal Fissure PAIN ANUS Hemorrhage of Rectum and Anus Hypothyroidism COVID-19 Immunization Status Overdue - COVID-19 VACCINE (1) Overdue - never done No completion, postpone, frequency change, or communication history exists for this topic. CHIEF COMPLAINT: Pre-op exam HPI: Candice Mandujano is a 57 year old seen for PAC due to scheduled above surgery because of incisional hernia. 06/30/2022, Dr. Duval HPI: Candice is a 56 year old female with a complaint of a bulge and discomfort in her mid abdomen. The patient notes discomfort in this area with lifting, straining, and moving. The symptoms haveincreased, over the past few months. The patient works at [employer] in [facility]. She does a significant amount of heavy lifting. She really is unclear whether or not she did anything at work and she states that she is not pursuingWorker's Compensation. The patient notes no symptoms of bowel obstruction and denies nausea or vomiting. The patient was seen by her primary care physician who felt the patient has a hernia. Candice was referred for evaluation and treatment. The patient is being seen by me today at the request of Dr. Shalini Shahid MD for my opinion and advice regarding Incisional hernia, without obstruction or gangrene (primary encounter diagnosis). REVIEW OF SYSTEMS: General: No weight loss, malaise or fevers. Neurological: No history of TIA's, stroke, BOAT DETAILER tumor, impaired sensorium, hemiplegia, paraplegia orquadraplegia. No neurological symptoms or problems. Respiratory: +former smoker 0.5ppd/15 years/intermittently. No history of current cough or dyspnea,or pneumonia in the past 6 weeks. No history of respiratory/pulmonary symptoms or problems. Cardiovascular: No history of HTN requiring medication, no history of angina, CHF, ND, cardiac surgery or stents. Denies rest pain, gangrene or revascularization/amputation for PVD. No history of cardiovascular symptoms or problems. GI: See HPI. : No history of dysuria, frequency or incontinence, stones or chronic kidney disease. No difficulty urinating, nocturia > 1 time per night or hematuria. FAMILY CENTERED SPECIALIST: Negative for abnormal vaginal bleeding, abnormal vaginal discharge. Endocrine: Positive for: hypothyroidism (on rx). Negative for: diabetes mellitus. Hematology: No history of bleeding or clotting disorder. Patient is not taking anti-coagulation or platelet medications. No history of hematological symptoms or problems. Oncology: No history of CA metastasis, chemo within 30 days, or radiotherapy within 90 days. No history of oncological symptoms or problems. Psych: No history of psychiatric symptoms or problems. Musculoskeletal: Positive for: back pain and joint pain. Skin: Negative for lesions, rash and itching. PAST MEDICAL HISTORY Diagnosis Date Abdominal distention, non-gaseous Abdominal pain Acid reflux Atrophic vaginitis Back ache Bruxism Carpal tunnel syndrome, bilateral Dyspepsia Goiter, specified as simple Hallux valgus, bilateral Hemorrhoid History of neoplasm of uncertain behavior of uterus Hypercholesterolemia Hypothyroid Irritable bowel Leucopenia Lumbar back pain Menopausal problem Myofascial pain Nevus, non-neoplastic Pain in hand Palpitations Jet's nails Thoracic back pain TMJ dysfunction TOS (thoracic outlet syndrome) PAST SURGICAL HISTORY Procedure Laterality Date BIOPSY THYROID DELIVERY ONLY , low cervical CHOLECYSTECTOMY Cholecystectomy COLONOSCOPY 2016 Dr. Gonzalez EXCISION OF CYST scalp LAPS ABD PRTM&OMENTUM DX W/WO SPEC BR/WA SPX Laparoscopy PAST SURGICAL HISTORY OF 2011 lAPAROSCOPIC HYSTERECTOMY REMOVAL OF OVARIAN CYST(S) 1984 SIGMOIDOSCOPY FLX DX W/COLLJ SPEC BR/WA IF PFRMD 04/02/2006 flexible sigmoidoscopy SINUS SURGERY PROCEDURE 09/14/2021 nasal sinusotomy, balloon sinusplasty, polyp right sinus, cyst left sinus FAMILY HISTORY Problem Relation Age of Onset Rheumatologic disease Mother Hypertension Mother Heart Father Ischemic Heart Disease Father Ovarian cancer Sister Hypertension Brother Gout Brother Vertigo Brother Ovarian cancer Daughter No Known Problems Son Social History Tobacco Use Smoking status: Former Packs/day: 0.50 Years: 15.00 Pack years: 7.50 Types: Cigarettes Quit date: 2003 Years since quittin.1 Smokeless tobacco: Never Vaping Use Vaping Use: Never used Substance Use Topics Alcohol use: Yes Comment: social Drug use: Never Prior to Admission medications as of 07/26/22 1601 Medication Sig Last Dose Taking Selenium 100 mcg tab Take 100 mcg by mouth once daily. Taking Yes Biotin 10,000 mcg cap Take by mouth. Taking Yes levothyroxine (SYNTHROID) 112 mcg tablet Take 112 mcg by mouth once daily. Taking Yes vit C/zinc/Kginseng/isabel/hrb62 (IMMUNE SUPPORT COMPLEX ORAL) Take by mouth as needed. Taking Yes No medication comments found. ALLERGIES Allergen Reactions Amoxicillin Darvocet A500 [Prop* Penicillins Prevacid [Lansopraz* Other: See Comments Stomach cramps Objective PHYSICAL EXAM: General: alert and oriented (x3) and healthy appearance. Pertinent negatives noted - not distressed. Skin: normal color, no rash or lesions. HEENT: EOM intact and pupils equal round. Pertinent negatives noted - no carotid bruit. Cardiovascular: regular rate and rhythm, normal S1 and S2, no rub, murmurs, or gallop. Respiratory: normal breath sounds, no wheezes or crackles. No chest wall deformity or tenderness. Abdomen: soft. Pertinent negatives noted - not tender. Extremities: no deformity, no edema or tenderness, no joint swelling or clubbing. Neurological: normal cognition and motor skills. Gait normal. No weakness or sensory deficit. PAIN ASSESSMENT: Pain Pain Level: 6 Pain Location: Abdomen Description: Pressure Ulcer/Injury Frequency: Intermittent VITALS: BP 150/68 Pulse 73 Temp (Src) 98.4 (Temporal) Resp 17 Ht 5' 6 (1.68m) Wt 160 lb (72.6kg) SpO2 98% BMI 25.84 kg/(m^2). Diagnostic tests reviewed for today's visit: Lab Value Units Date High Low HB No results within date range. HCT No results within date range. WBC No results within date range. PLT No results within date range. NA No results within date range. K No results within date range. GLUC No results within date range. BUN No results within date range. CREAT No results within date range. PTSEC No results within date range. INR No results within date range. APTT No results within date range. ALT No results within date range. AST No results within date range. TBILI No results within date range. TSH No results within date range. Lab Value Units Date High Low HCGQT No results within date range. UHCG No results within date range. HCG, BODY* No results within date range. Lab Value Units Date High Low ABORHD No results within date range. ABSCREEN No results within date range. No results found for: HBA1C No results found for this or any previous visit (from the past 8760 hour(s)). No results found for this or any previous visit (from the past 65623 hour(s)). Assessment Patient has the following medical conditions which may affect tanesha-operative course: Hypothyroidism Assessment: stable on rx Asymmetric Goiter Assessment: denies compressive symptoms Veras Activity Status Index: METS: Climb a flight of stairs or walk up a hill (5.50 METs) DASI Score: 5.5 Patient denies any chest pain or undue shortness of breath with the above physical activity. Clinical Frailty Scale: 1. Very fit STOP-Bang Score: Snores loudly Denies feeling tired, fatigued, or sleepy during the daytime Has not been observed to stop breathing or choking/gasping during sleep Denies having high blood pressure BMI less than or equal to 35 kg/m^2 Patient 50 years old or younger Does not have a large neck Non-male patient STOP-Bang Score: 1 [id number] Score: Age: <65 Sex: female CHF history: No Hypertension history: No Stroke/TIA/thromboembolism history: No Vascular disease history: No Diabetes history: No [id number] Score: 1 ARISCAT Score: Age: 51-80 Preoperative SpO2: >=96% Respiratory infection in the last month: No Preoperative anemia: Yes Surgical incision: upper abdominal Duration of surgery: 2-3 hrs Emergency procedure: No ARISCAT Score: 45 ASA Class: 2 ANESTHESIA FINDINGS: Intubation History: No history of difficult intubation Significant Anesthesia Considerations: none Airway History: No history of difficult airway I - PHYSICAL EVALUATION AIRWAY Patient intubated: No. Tracheostomy tube not present Mallampati: III. TM distance: >3 FB. Neck ROM: full ROM without neurological symptoms. Mouth opening: adequate. Short neck: no. Thick neck: no Moraes present: no DENTAL Dental findings: teeth intact. II - ANESTHESIA PLAN ASA Score: 2 Anesthetic Plan: other Anesthetic plan additional comments: *PACC/TCI - anesthesia choice. Beta Lydia Monitoring Plan Post Procedure Analgesic Plan Informed Consent Anesthetic risks, benefits, alternatives, personnel and consent discussed: yes. Patient / Responsible Green Party agrees to proceed: yes Patient / Surrogate agrees to blood products: blood products not planned Prepared for Surgery: optimally prepared for surgery. CONSULTS: Patient does not require consults for optimization at this time Planned Anesthetic: other anesthesia choice The Following Tests/Procedures Have Been Initiated: Orders Placed This Encounter Selenium 100 mcg tab Sig: Take 100 mcg by mouth once daily. Instructions Given to Patient: Instructions located in the after visit summary. Patient given verbal and written preop instructions and voices comprehension and compliance. SIGNATURE: Una Perez APRN.CNP PATIENT NAME: Candice Mandujano DATE: July 26, 2022 TIME: 3:51 PM PAGER/CONTACT #: documented in this encounterHenry [facility] Hospital03-01-2023 Miscellaneous Notes* Telephone Encounter - Ju Raines - 07/19/2022 10:37 AM EST Received approved C-9 forms. Please see scanned doc Ju Raines Floral Design Teacher * Telephone Encounter - Sumaya Lamb RN - 07/19/2022 10:32 AM EST Received approval from Scott Bee at [facility]. Left voicemail for patient. Copy of approved C-9 tosurgery database administration project manager. Sumaya Lamb RN * Telephone Encounter - Sumaya Lamb RN - 07/18/2022 10:[address] Duval, You saw Candice on June 30, 2022 for an incisional hernia. At that time, the patient advisedShe really is unclear whether or not she did anything at work and she states that she is not pursuing Worker's Compensation. Candice called our office on July 03 and advised that she would be filing Workers' Compensation for the injury. The [facility] is now questioning the part in your consultation note that states she is not pursuing Workers' Compensation. Could you please place an addendum to your consult note, noting that she contactedour office on 07/03/22 and advised that she was filing [facility] paperwork? Thank you. Sumaya Lamb RN * Telephone Encounter - Sumaya Lamb RN - 07/18/2022 10:00 AM EST Spoke with Candice. Advised that I would have Dr. Duval add an addendum to his consultation notes, stating that she notified our office, after her visit, that she would be filing with the [facility]. However, Dr. Duval is on vacation this week and the first opportunity I will have for him to complete this will be Sunday, July 24, 2022. Candice voiced understanding and requested that I notify the [facility] and [facility]. Spoke with Iesha Joy At [facility], . Iesha advised that she would make a note in the file that we would be forwarding additional information on Sunday. Left voicemail for Wendy Washburn at [facility] [phone]. Asked that if she has any questions, please call our office. Sumaya Lamb RN * Telephone Encounter - Valentina Melgar LPN - 07/17/2022 11:56 AM EST Called and spoke to patient, informed patient we will call back tomorrow 07/18/[address] [facility], after receiving WBC comp information. * Telephone Encounter - Giovana Irwin LPN - 07/17/2022 11:47 AM EST Patient called. Verified name and date of . Patient would like to speak to someone in general surgery regarding the workers comp case. Aware that previous message has been sent. States when she saw provider she told him she wasn't sure if it was a workers comp case but because it happened due to lifting at work she filed case with her work. Giovana Irwin LPN * Telephone Encounter - Giovana Irwin LPN - 07/17/2022 8:22 AM EST Patient called. Verified name and date of . Patient states that Iesha Tripp with [facility] called her and stated that the paperwork sent into them indicated that Dr. Duval put something on paperwork that said he didn't know if the injury was a result from her working or not. Patient understood that everything was approved for [facility] and is now concerned there will be issues due to what was indicated by Dr. Duval. Please call Iesha Josee at [phone] to verify. Giovana Irwin LPN * Telephone Encounter - Sumaya Lamb RN - 07/14/2022 8:35 AM EST Brie signed. Faxed to Wendy Washburn at [facility] [phone]. Faxed Brie, Dr. Duval's surgical consultation note and the CT scan report. Fax confirmation sheet received. Sumaya Lamb RN * Telephone Encounter - Sumaya Lamb RN - 07/13/2022 3:39 PM EST C-[address] Duval's office, waiting on his signature. Sumaya Lamb RN * Telephone Encounter - Ju Raines - 07/13/2022 3:34 PM EST Patient called in wanting to know if she is okay to schedule hernia surgery as [facility] Please advise if patient can be scheduled... She is asking for date 08/08/2022 Ju Raines Floral Design Teacher * Telephone Encounter - Sumaya Lamb RN - 07/12/2022 2:06 PM EST Received approved C-9 from [facility] for the general surgery consultation. Completed a C-9 for [id number] hernia repair with mesh, placed in Dr. Duval's box for signature. Sumaya Lamb RN * Telephone Encounter - Tameka Rangel Ma - 07/05/2022 4:07 PM EST Patient called in stating she got a call that her consult to see Dr. Duval (completed on 06/30/2022) has been approved. Asked patient to contact [facility] to forward approved C-9 to office. Explained to patient that her upcoming elective surgery will need approval before surgery can take place. She verbalized understanding. She would like to have that process started. * Telephone Encounter - Kwesi Daniel LPN - 07/03/2022 2:26 PM EST Patient called stating she is filing workmen's comp, would like to know who fills out paperwork. Advised patient that Dr. Shahid PCP needs to start paperwork, our office will fill in our part as needed. Advised patient that procedure will need to be canceled until workmen comp is approved, finisher operator will reschedule procedure at later time. Advised patient Dr. Duval stated that she has NO restrictions prior to surgery. Patient verbalized understanding. Kwesi Daniel LPN * Telephone Encounter - Kwesi Daniel LPN - 07/03/2022 9:20 AM EST Spoke to patient, verified name and date of . Advised patient that no restrictions were given prior to surgery. Patient verbalized concern due toher lifting 40-70 lbs at work. Patient stated employer wants to know what her restrictions are. Patient will be pursuing workman'scomp now. Notified patient I will let Dr. Duval know that she is pursuing workman's comp now and employer wants to know if she will have restrictions now. Patient verbalized understanding. Please review and advise. Kwesi Daniel LPN * Telephone Encounter - Giovana Irwin LPN - 07/03/2022 8:03 AM EST Patient called. Verified name and date of . Patient saw Dr. Duval on Sunday and has a herniarelated to workers compensation. 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 She is not able to work at this time and her employer is wanting to know what her restrictions are until surgery. Please call patient to discuss. Giovana Irwin LPN documented in this encounterHenry [facility] Hospital02-10-2023 NoteHNO ID: [id number] Author: Blu Duval MD Service: ? Author Type: Physician Type: Progress Notes Filed: 06/30/2022 4:20 PM Note Text: HISTORY AND PHYSICAL Candice Mandujano 1965 REFERRING PHYSICIAN: Shalini Shahid MD CHIEF COMPLAINT: Consult (Evaluate CT scan, possible hernia) HPI: Candice is a 56 year old female with a complaint of a bulge and discomfort in her mid abdomen. The patient notes discomfort in this area with lifting, straining, and moving. The symptoms have increased, over the past few months. The patient works at [employer] in [facility]. She does a significant amount of heavy lifting. She really is unclear whether or not she did anything at work and she states that she is not pursuing Worker's Compensation. The patient notes no symptoms of bowel obstruction and denies nausea or vomiting. The patient was seen by her primary care physician who felt the patient has a hernia. Candice was referred for evaluation and treatment. The patient is being seen by me today at the request of Dr. Shalini Shahid MD for my opinion and advice regarding Incisional hernia, without obstruction or gangrene (primary encounter diagnosis). PAST MEDICAL HISTORY Diagnosis Date Abdominal distention, non-gaseous Abdominal pain Acid reflux Atrophic vaginitis Back ache Bruxism Carpal tunnel syndrome, bilateral Dyspepsia Goiter, specified as simple Hallux valgus, bilateral Hemorrhoid History of neoplasm of uncertain behavior of uterus Hypercholesterolemia Hypothyroid Irritable bowel Leucopenia Lumbar back pain Menopausal problem Myofascial pain Nevus, non-neoplastic Pain in hand Palpitations Jet's nails Thoracic back pain TMJ dysfunction TOS (thoracic outlet syndrome) PAST SURGICAL HISTORY Procedure Laterality Date BIOPSY THYROID DELIVERY ONLY , low cervical CHOLECYSTECTOMY Cholecystectomy COLONOSCOPY 2016 Dr. Gonzalez EXCISION OF CYST scalp LAPS ABD PRTMANDOMENTUM DX W/WO SPEC BR/WA SPX Laparoscopy PAST SURGICAL HISTORY OF 2011 lAPAROSCOPIC HYSTERECTOMY REMOVAL OF OVARIAN CYST(S) 1984 SIGMOIDOSCOPY FLX DX W/COLLJ SPEC BR/WA IF PFRMD 04/02/2006 flexible sigmoidoscopy SINUS SURGERY PROCEDURE 09/14/2021 nasal sinusotomy, balloon sinusplasty, polyp right sinus, cyst left sinus Current Outpatient Medications Medication Sig Biotin 10,000 mcg cap Take by mouth. levothyroxine (SYNTHROID) 112 mcg tablet Take 112 mcg by mouth once daily. vit C/zinc/Kginseng/isabel/hrb62 (IMMUNE SUPPORT COMPLEX ORAL) Take by mouth. estradiol 2 mg tablet Take 2 mg by mouth once daily. levothyroxine (LEVOXYL) 125 mcg ORAL tablet Take by mouth. Take 6 1/2 pills weekly No current facility-administered medications for this visit. ALLERGIES: Amoxicillin, Darvocet A500 [Propoxyphene N-Acetaminophen], Penicillins, and Prevacid [Lansoprazole] PERSONAL HISTORY: Social History Tobacco Use Smoking status: Former Types: Cigarettes Quit date: 2003 Years since quittin.1 Smokeless tobacco: Never Vaping Use Vaping Use: Never used Substance Use Topics Alcohol use: Yes Comment: social Drug use: Never FAMILY HISTORY: FAMILY HISTORY Problem Relation Age of Onset Rheumatologic disease Mother Hypertension Mother Heart Father Ischemic Heart Disease Father Ovarian cancer Sister Hypertension Brother Gout Brother Vertigo Brother Ovarian cancer Daughter No Known Problems Son REVIEW OF SYMPTOMS: The review of systems data was entered by the nurse and reviewed by nm Nursing Notes: Sumaya Lamb RN 06/30/2022 4:01 PM Signed REVIEW OF SYSTEMS: General: The patient denies fatigue, denies weight loss, NOTES weight gain, denies feeling hot, and denies feelings of cold. Eyes: The patient denies glaucoma, denies eye injury/surgery, wears glasses or contacts. Ear/Nose/Throat: The patient NOTES allergies, denies hayfever, denies ear infections, and denies bloody noses. Cardiovascular: The patient denies chest pain, denies heart disease, denies high blood pressure,denies cardiac stent, denies prior heart attack, denies irregular heart beat, denies high cholesterol, denies poor circulation, denies heart failure, other cardiac issues, denies claudication, denies cold feet, denies peripheral arterial stent. Respiratory: The patient denies tuberculosis, denies pneumonia, denies frequent cough, denies pulmonary embolism, denies shortness of breath, and denies coughing up blood. Gastrointestinal: The patient denies difficulty swallowing, denies acid reflux, denies ulcers, denies vomiting, denies jaundice/hepatitis, denies gallbladder problems, denies black or tarry stools, denies hemorrhoids, denies bleeding from rectum, denies diverticulitis, NOTES constipation, denies diarrhea, denies loss of stool control, and NOTES hernias. Kidney/Bladder: The patient denies kidn (more content not included)...[facility]02-10-2023 NoteHNO ID: [id number] Author: Blu Duval MD Service: ? Author Type: Physician Type: Progress Notes Filed: 06/30/2022 4:20 PM Note Text: HISTORY AND PHYSICAL Candice Mandujano 1965 REFERRING PHYSICIAN: Shalini Shahid MD CHIEF COMPLAINT: Consult (Evaluate CT scan, possible hernia) HPI: Candice is a 56 year old female with a complaint of a bulge and discomfort in her mid abdomen. The patient notes discomfort in this area with lifting, straining, and moving. The symptoms have increased, over the past few months. The patient works at [employer] in [facility]. She does a significant amount of heavy lifting. She really is unclear whether or not she did anything at work and she states that she is not pursuing Worker's Compensation. The patient notes no symptoms of bowel obstruction and denies nausea or vomiting. The patient was seen by her primary care physician who felt the patient has a hernia. Candice was referred for evaluation and treatment. The patient is being seen by me today at the request of Dr. Shalini Shahid MD for my opinion and advice regarding Incisional hernia, without obstruction or gangrene (primary encounter diagnosis). PAST MEDICAL HISTORY Diagnosis Date Abdominal distention, non-gaseous Abdominal pain Acid reflux Atrophic vaginitis Back ache Bruxism Carpal tunnel syndrome, bilateral Dyspepsia Goiter, specified as simple Hallux valgus, bilateral Hemorrhoid History of neoplasm of uncertain behavior of uterus Hypercholesterolemia Hypothyroid Irritable bowel Leucopenia Lumbar back pain Menopausal problem Myofascial pain Nevus, non-neoplastic Pain in hand Palpitations Jet's nails Thoracic back pain TMJ dysfunction TOS (thoracic outlet syndrome) PAST SURGICAL HISTORY Procedure Laterality Date BIOPSY THYROID DELIVERY ONLY , low cervical CHOLECYSTECTOMY Cholecystectomy COLONOSCOPY 2016 Dr. Gonzalez EXCISION OF CYST scalp LAPS ABD PRTMANDOMENTUM DX W/WO SPEC BR/WA SPX Laparoscopy PAST SURGICAL HISTORY OF 2011 lAPAROSCOPIC HYSTERECTOMY REMOVAL OF OVARIAN CYST(S) 1984 SIGMOIDOSCOPY FLX DX W/COLLJ SPEC BR/WA IF PFRMD 04/02/2006 flexible sigmoidoscopy SINUS SURGERY PROCEDURE 09/14/2021 nasal sinusotomy, balloon sinusplasty, polyp right sinus, cyst left sinus Current Outpatient Medications Medication Sig estradiol 2 mg tablet Take 2 mg by mouth once daily. levothyroxine (LEVOXYL) 125 mcg ORAL tablet Take by mouth. Take 6 1/2 pills weekly No current facility-administered medications for this visit. ALLERGIES: Amoxicillin, Darvocet A500 [Propoxyphene N-Acetaminophen], Penicillins, and Prevacid [Lansoprazole] PERSONAL HISTORY: Social History Tobacco Use Smoking status: Former Smokeless tobacco: Never Substance Use Topics Alcohol use: Yes FAMILY HISTORY: FAMILY HISTORY Problem Relation Age of Onset Heart Father REVIEW OF SYMPTOMS: The review of systems data was entered by the nurse and reviewed by me There are no exam notes on file for this visit. PHYSICAL EXAMINATION: General: The patient is 56 year old female, well nourished, well hydrated in no acute distress. The patient is oriented to time, place, and person. VITALS: Blood pressure 138/70, pulse 85, temperature 36.9 ?C (98.4 ?F), height 167.6 cm (5' 6), weight 72.6 kg (160 lb), SpO2 99 %. Body mass index is 25.82 kg/m?. HEENT: Normal cephalic, ataumatic, pupils are equally round, sclera are anicteric, mucous membranes are moist, oropharynx is clear. Neck has no masses, asymmetry or lymphadenopathy. Thyroid is unremarkable. Respiratory: Clear to auscultation and percussion. Normal respiratory excursion and pattern. Cardiac: Examination is regular rate and rhythm. Abdominal exam: Soft, nontender, with no palpable masses. No hepatosplenomegaly. A moderate reducible incisional hernia measuring approximately 3 to 4 cm Rectal exam: exam deferred Extremities: no clubbing, cyanosis or edema. No adenopathy. Other: LABORATORY VALUES: As Noted RADIOLOGIC STUDIES: As Noted Assessment IMPRESSION: prior midabdomin incisional hernia PLAN: My plan is to perform a incisional hernia repair with mesh. The planned surgical procedure was discussed extensively with the patient. The risks, benefits, anticipated outcomes and possible complications were mentioned. Candice undersands that all hernia repair surgery has a chance of recurrence and/or chronic post operative pain. My staff has also explained the procedure in understandable terms and the patient was given the option to take printed material concerning the planned procedure. The patient had the opportunity to ask questions concerning the planned procedure. The patient freely consents to the planned procedure. A letter was sent to Dr. Shalini Shahid MD indicating the above finding for this patient. Diagnoses: (K43.2) (more content not included)...[facility] 06-30-2022 History of Present illness Narrative* Blu Duval MD - 06/30/2022 4:16 PM EST HISTORY AND PHYSICAL Candice Mandujano 1965 REFERRING PHYSICIAN: Shalini Shahid MD CHIEF COMPLAINT: Consult (Evaluate CT scan, possible hernia) HPI: Candice is a 56 year old female with a complaint of a bulge and discomfort in her mid abdomen. The patient notes discomfort in this area with lifting, straining, and moving. The symptoms haveincreased, over the past few months. The patient works at [employer] in [facility]. She does a significant amount of heavy lifting. She really is unclear whether or not she did anything at work and she states that she is not pursuingWorker's Compensation. The patient notes no symptoms of bowel obstruction and denies nausea or vomiting. The patient was seen by her primary care physician who felt the patient has a hernia. Candice was referred for evaluation and treatment. The patient is being seen by me today at the request of Dr. Shalini Shahid MD for my opinion and advice regarding Incisional hernia, without obstruction or gangrene (primary encounter diagnosis). PAST MEDICAL HISTORY Diagnosis Date Abdominal distention, non-gaseous Abdominal pain Acid reflux Atrophic vaginitis Back ache Bruxism Carpal tunnel syndrome, bilateral Dyspepsia Goiter, specified as simple Hallux valgus, bilateral Hemorrhoid History of neoplasm of uncertain behavior of uterus Hypercholesterolemia Hypothyroid Irritable bowel Leucopenia Lumbar back pain Menopausal problem Myofascial pain Nevus, non-neoplastic Pain in hand Palpitations Jet's nails Thoracic back pain TMJ dysfunction TOS (thoracic outlet syndrome) PAST SURGICAL HISTORY Procedure Laterality Date BIOPSY THYROID DELIVERY ONLY , low cervical CHOLECYSTECTOMY Cholecystectomy COLONOSCOPY 2016 Dr. Gonzalez EXCISION OF CYST scalp LAPS ABD PRTM&OMENTUM DX W/WO SPEC BR/WA SPX Laparoscopy PAST SURGICAL HISTORY OF 2011 lAPAROSCOPIC HYSTERECTOMY REMOVAL OF OVARIAN CYST(S) 1984 SIGMOIDOSCOPY FLX DX W/COLLJ SPEC BR/WA IF PFRMD 04/02/2006 flexible sigmoidoscopy SINUS SURGERY PROCEDURE 09/14/2021 nasal sinusotomy, balloon sinusplasty, polyp right sinus, cyst left sinus Current Outpatient Medications Medication Sig Biotin 10,000 mcg cap Take by mouth. levothyroxine (SYNTHROID) 112 mcg tablet Take 112 mcg by mouth once daily. vit C/zinc/Kginseng/isabel/hrb62 (IMMUNE SUPPORT COMPLEX ORAL) Take by mouth. estradiol 2 mg tablet Take 2 mg by mouth once daily. levothyroxine (LEVOXYL) 125 mcg ORAL tablet Take by mouth. Take 6 1/2 pills weekly No current facility-administered medications for this visit. ALLERGIES: Amoxicillin, Darvocet A500 [Propoxyphene N-Acetaminophen], Penicillins, and Prevacid [Lansoprazole] PERSONAL HISTORY: Social History Tobacco Use Smoking status: Former Types: Cigarettes Quit date: 2003 Years since quittin.1 Smokeless tobacco: Never Vaping Use Vaping Use: Never used Substance Use Topics Alcohol use: Yes Comment: social Drug use: Never FAMILY HISTORY: FAMILY HISTORY Problem Relation Age of Onset Rheumatologic disease Mother Hypertension Mother Heart Father Ischemic Heart Disease Father Ovarian cancer Sister Hypertension Brother Gout Brother Vertigo Brother Ovarian cancer Daughter No Known Problems Son REVIEW OF SYMPTOMS: The review of systems data was entered by the nurse and reviewed by me Nursing Notes: Sumaya Lamb RN 06/30/2022 4:01 PM Signed REVIEW OF SYSTEMS: General: The patient denies fatigue, denies weight loss, NOTES weight gain, denies feeling hot, anddenies feelings of cold. Eyes: The patient denies glaucoma, denies eye injury/surgery, wears glasses or contacts. Ear/Nose/Throat: The patient NOTES allergies, denies hayfever, denies ear infections, and denies bloody noses. Cardiovascular: The patient denies chest pain, denies heart disease, denies high blood pressure,denies cardiac stent, denies prior heart attack, denies irregular heart beat, denies high cholesterol, denies poor circulation, denies heart failure, other cardiac issues, denies claudication, denies cold feet, denies peripheral arterial stent. Respiratory: The patient denies tuberculosis, denies pneumonia, denies frequent cough, denies pulmonary embolism, denies shortness of breath, and denies coughing up blood. Gastrointestinal: The patient denies difficulty swallowing, denies acid reflux, denies ulcers, denies vomiting, denies jaundice/hepatitis, denies gallbladder problems, denies black or tarry stools, denies hemorrhoids, denies bleeding from rectum, denies diverticulitis, NOTES constipation, denies diarrhea, denies loss of stool control, and NOTES hernias. Kidney/Bladder: The patient denies kidney stones, denies urine infections, and denies bloody urine. Skin: The patient denies a history of skin cancer, denies bleeding/changing moles, and denies a history of skin rash. Neurologic: The patient denies a history of epilepsy/convulsions, denies headaches, denies head/spinal injuries, and denies stroke/TIA. Psychiatric: The patient denies psychiatric medications, denies depression, and denies voices, denies substance abuse. Endocrine: The patient NOTES thyroid disorders, denies diabetes, and denies hormonal problems. Hematologic: The patient denies a history of bruising, denies bleeding, and denies anemia, denies blood clots. Infections: The patient denies a history of measles and mumps, denies rheumatic fever, and denies sexually transmitted diseases. Musculoskeletal: The patient denies back pain/injury, denies back problems, denies sciatica, deniesknee/foot trouble, denies arthritis, or denies gout. When was patient's last Mammogram screening? Unknown Last Colonoscopy: 2017 Sumaya Lamb RN PHYSICAL EXAMINATION: General: The patient is 56 year old female, well nourished, well hydrated in no acute distress. Thepatient is oriented to time, place, and person. VITALS: Blood pressure 138/70, pulse 85, temperature 36.9 C (98.4 F), height 167.6 cm (5' 6), weight 72.6 kg (160 lb), SpO2 99 %. Body mass index is 25.82 kg/m . HEENT: Normal cephalic, ataumatic, pupils are equally round, sclera are anicteric, mucous membranesare moist, oropharynx is clear. Neck has no masses, asymmetry or lymphadenopathy. Thyroid is unremarkable. Respiratory: Clear to auscultation and percussion. Normal respiratory excursion and pattern. Cardiac: Examination is regular rate and rhythm. Abdominal exam: Soft, nontender, with no palpable masses. No hepatosplenomegaly. A moderate reducible incisional hernia measuring approximately 3 to 4 cm Rectal exam: exam deferred Extremities: no clubbing, cyanosis or edema. No adenopathy. Other: LABORATORY VALUES: As Noted RADIOLOGIC STUDIES: As Noted Assessment IMPRESSION: prior midabdomin incisional hernia PLAN: My plan is to perform a incisional hernia repair with mesh. The planned surgical procedure was discussed extensively with the patient. The risks, benefits, anticipated outcomes and possible complications were mentioned. Candice sigalaands that all hernia repair surgery has a chance of recurrence and/or chronic post operative pain. My staff has also explained the procedure in understandable terms and the patient was given the option to take printed material concerning the planned procedure. The patient had the opportunity to ask questions concerning the planned procedure. The patient freely consents to the planned procedure. A letter was sent to Dr. Shalini Shahid MD indicating the above finding for this patient. Diagnoses: (K43.2) Incisional hernia, without obstruction or gangrene (primary encounter diagnosis) Anticipated CPT Code: ventral hernia repair with mesh - 23231 Anticipated Anesthetic: General Patient weight: Blood pressure 138/70, pulse 85, temperature 36.9 C (98.4 F), height 167.6 cm (5' 6), weight 72.6 kg (160 lb), SpO2 99 %. BMI: Body mass index is 25.82 kg/m . Planned antibiotic: clindamycin 900mg IVPB collections curator to OR SCDs needed - Yes Return to Clinic: The patient is instructed to follow-up with me 1 week post operatively. Medical Decision Making: Data: Independent interpretation of test from other physician/QHCP Risk: Moderate: Decision on elective major surgery w/o risk factors Medical Decision Making Level: 4 - Moderate Blu Duval III, MD * Blu Duval MD - 06/30/2022 3:45 PM EST HISTORY AND PHYSICAL Candice Mandujano 1965 REFERRING PHYSICIAN: Shalini Shahid MD CHIEF COMPLAINT: Consult (Evaluate CT scan, possible hernia) HPI: Candice is a 56 year old female with a complaint of a bulge and discomfort in her mid abdomen. The patient notes discomfort in this area with lifting, straining, and moving. The symptoms haveincreased, over the past few months. The patient works at [employer] in [facility]. She does a significant amount of heavy lifting. She really is unclear whether or not she did anything at work and she states that she is not pursuingWorker's Compensation. The patient notes no symptoms of bowel obstruction and denies nausea or vomiting. The patient was seen by her primary care physician who felt the patient has a hernia. Candice was referred for evaluation and treatment. The patient is being seen by me today at the request of Dr. Shalini Shahid MD for my opinion and advice regarding Incisional hernia, without obstruction or gangrene (primary encounter diagnosis). PAST MEDICAL HISTORY Diagnosis Date Abdominal distention, non-gaseous Abdominal pain Acid reflux Atrophic vaginitis Back ache Bruxism Carpal tunnel syndrome, bilateral Dyspepsia Goiter, specified as simple Hallux valgus, bilateral Hemorrhoid History of neoplasm of uncertain behavior of uterus Hypercholesterolemia Hypothyroid Irritable bowel Leucopenia Lumbar back pain Menopausal problem Myofascial pain Nevus, non-neoplastic Pain in hand Palpitations Jet's nails Thoracic back pain TMJ dysfunction TOS (thoracic outlet syndrome) PAST SURGICAL HISTORY Procedure Laterality Date BIOPSY THYROID DELIVERY ONLY , low cervical CHOLECYSTECTOMY Cholecystectomy COLONOSCOPY 2016 Dr. Gonzalez EXCISION OF CYST scalp LAPS ABD PRTM&OMENTUM DX W/WO SPEC BR/WA SPX Laparoscopy PAST SURGICAL HISTORY OF 2011 lAPAROSCOPIC HYSTERECTOMY REMOVAL OF OVARIAN CYST(S) 1984 SIGMOIDOSCOPY FLX DX W/COLLJ SPEC BR/WA IF PFRMD 04/02/2006 flexible sigmoidoscopy SINUS SURGERY PROCEDURE 09/14/2021 nasal sinusotomy, balloon sinusplasty, polyp right sinus, cyst left sinus Current Outpatient Medications Medication Sig estradiol 2 mg tablet Take 2 mg by mouth once daily. levothyroxine (LEVOXYL) 125 mcg ORAL tablet Take by mouth. Take 6 1/2 pills weekly No current facility-administered medications for this visit. ALLERGIES: Amoxicillin, Darvocet A500 [Propoxyphene N-Acetaminophen], Penicillins, and Prevacid [Lansoprazole] PERSONAL HISTORY: Social History Tobacco Use Smoking status: Former Smokeless tobacco: Never Substance Use Topics Alcohol use: Yes FAMILY HISTORY: FAMILY HISTORY Problem Relation Age of Onset Heart Father REVIEW OF SYMPTOMS: The review of systems data was entered by the nurse and reviewed by me There are no exam notes on file for this visit. PHYSICAL EXAMINATION: General: The patient is 56 year old female, well nourished, well hydrated in no acute distress. Thepatient is oriented to time, place, and person. VITALS: Blood pressure 138/70, pulse 85, temperature 36.9 C (98.4 F), height 167.6 cm (5' 6), weight 72.6 kg (160 lb), SpO2 99 %. Body mass index is 25.82 kg/m . HEENT: Normal cephalic, ataumatic, pupils are equally round, sclera are anicteric, mucous membranesare moist, oropharynx is clear. Neck has no masses, asymmetry or lymphadenopathy. Thyroid is unremarkable. Respiratory: Clear to auscultation and percussion. Normal respiratory excursion and pattern. Cardiac: Examination is regular rate and rhythm. Abdominal exam: Soft, nontender, with no palpable masses. No hepatosplenomegaly. A moderate reducible incisional hernia measuring approximately 3 to 4 cm Rectal exam: exam deferred Extremities: no clubbing, cyanosis or edema. No adenopathy. Other: LABORATORY VALUES: As Noted RADIOLOGIC STUDIES: As Noted Assessment IMPRESSION: prior midabdomin incisional hernia PLAN: My plan is to perform a incisional hernia repair with mesh. The planned surgical procedure was discussed extensively with the patient. The risks, benefits, anticipated outcomes and possible complications were mentioned. Candice sigalaands that all hernia repair surgery has a chance of recurrence and/or chronic post operative pain. My staff has also explained the procedure in understandable terms and the patient was given the option to take printed material concerning the planned procedure. The patient had the opportunity to ask questions concerning the planned procedure. The patient freely consents to the planned procedure. A letter was sent to Dr. Shalini Shahid MD indicating the above finding for this patient. Diagnoses: (K43.2) Incisional hernia, without obstruction or gangrene (primary encounter diagnosis) Anticipated CPT Code: ventral hernia repair with mesh - 66064 Anticipated Anesthetic: General Patient weight: Blood pressure 138/70, pulse 85, temperature 36.9 C (98.4 F), height 167.6 cm (5' 6), weight 72.6 kg (160 lb), SpO2 99 %. BMI: Body mass index is 25.82 kg/m . Planned antibiotic: clindamycin 900mg IVPB collections curator to OR SCDs needed - Yes Return to Clinic: The patient is instructed to follow-up with me 1 week post operatively. Blu Duval III, MD [facility]* Sumaya Lamb RN - 06/30/2022 3:59 PM EST REVIEW OF SYSTEMS: General: The patient denies fatigue, denies weight loss, NOTES weight gain, denies feeling hot, anddenies feelings of cold. Eyes: The patient denies glaucoma, denies eye injury/surgery, wears glasses or contacts. Ear/Nose/Throat: The patient NOTES allergies, denies hayfever, denies ear infections, and denies bloody noses. Cardiovascular: The patient denies chest pain, denies heart disease, denies high blood pressure,denies cardiac stent, denies prior heart attack, denies irregular heart beat, denies high cholesterol, denies poor circulation, denies heart failure, other cardiac issues, denies claudication, denies cold feet, denies peripheral arterial stent. Respiratory: The patient denies tuberculosis, denies pneumonia, denies frequent cough, denies pulmonary embolism, denies shortness of breath, and denies coughing up blood. Gastrointestinal: The patient denies difficulty swallowing, denies acid reflux, denies ulcers, denies vomiting, denies jaundice/hepatitis, denies gallbladder problems, denies black or tarry stools, denies hemorrhoids, denies bleeding from rectum, denies diverticulitis, NOTES constipation, denies diarrhea, denies loss of stool control, and NOTES hernias. Kidney/Bladder: The patient denies kidney stones, denies urine infections, and denies bloody urine. Skin: The patient denies a history of skin cancer, denies bleeding/changing moles, and denies a history of skin rash. Neurologic: The patient denies a history of epilepsy/convulsions, denies headaches, denies head/spinal injuries, and denies stroke/TIA. Psychiatric: The patient denies psychiatric medications, denies depression, and denies voices, denies substance abuse. Endocrine: The patient NOTES thyroid disorders, denies diabetes, and denies hormonal problems. Hematologic: The patient denies a history of bruising, denies bleeding, and denies anemia, denies blood clots. Infections: The patient denies a history of measles and mumps, denies rheumatic fever, and denies sexually transmitted diseases. Musculoskeletal: The patient denies back pain/injury, denies back problems, denies sciatica, deniesknee/foot trouble, denies arthritis, or denies gout. When was patient's last Mammogram screening? Unknown Last Colonoscopy: 2016 Sumaya Lamb RN [facility] History of Present illness Narrative* RT Aly(R) - 09/28/2021 3:20 PM EDT Radiology Service Progress Note DATE OF SERVICE: September 28, 2021 TIME: 3:09 PM PATIENT IDENTITY VERIFICATION COMPLETED USING TWO (2) STANDARD IDENTIFIERS: Name and Date of confirmed by patient verbally. FALL SCREENING: Has the patient had 2 falls in the last year or 1 fall with injury or currently using an Ambulatory Assistive Device (Walker, Cane, Wheelchair, Crutches, etc.)? No PATIENT GENDER DATA: Female. status: : No status: NO. PATIENT RELEVANT IMPLANT DATA REVIEWED: Yes ALLERGIES: Reviewed and unchanged CONTRAST ALLERGY: NO. EXAM: CT -CONTRAST INDUCED NEPHROPATHY RISK FACTORS: Not applicable CREATININE: No results found for: CREAT, EGFROTH, EGFRAA P.O.C.T. RESULTS: POC done: Yes, See Lab Tab September 28, 2021 TREATMENT: N/A PERIPHERAL IV DATA: Ambulatory: A peripheral IV was started in the Left antecubital site with a Angio cath: 22 gauge. RADIOLOGY DEPARTMENT: CT; Exam(s) Completed: Abdomen/Pelvis SIGNATURE: RT Taylor(R) PATIENT NAME: Candice Mandujano DATE: September 28, 2021 TIME: 3:09 PM [facility]* Diagnosis Onset Date Resolution Status Fatigue acute Hypothyroidism chronic [facility] Work Phone: Evaluation noteNo assessment information available [facility] Work Phone: Evaluation note* Diagnosis Onset Date Resolution Status Hypertrophy of inferior nasal turbinate acute Nasal congestion acute Nasal septal deviation acute Chronic pansinusitis chronic [facility] Work Phone: Evaluation note* Diagnosis Incisional hernia, without obstruction or gangrene- Primary Incisional hernia without mention of obstruction or gangrene documented in this encounter [facility] note* Diagnosis Pre-operative examination- Primary Preoperative examination, unspecified Hypothyroidism, unspecified type Incisional hernia without obstruction or gangrene [facility]* Diagnosis Incisional pain- Primary Disturbance of skin sensation documented in this encounter [facility] note* Diagnosis Onset Date Resolution Status Hypothyroidism chronic [facility] Work Phone: Hospital Discharge instructions Additional Instructions [facility] Used?: [facility] Phone: Reason for referral (narrative)No reason for referral information availableWLancaster [facility] Work Phone: Rekgub for visit Narrative* Diagnostic Procedure Only (Routine) - Closed Specialty Diagnoses / Procedures Referred By Contac t Referred To Contact Radiology / RADIO CT SCAN [facility] Diagnoses CT ABD/PEL W IVCON-Intrabdominal and pelvis swelling, mass, and lumps [R19.00] / [place] [id number] / ordered by Shalini Shahid MD - verified Procedures CT WWO ABD[address], Shalini Matson MD [address] [place] [address] Scan [facility] [address] [place] [address] Referral ID Status Reason Start Date Expiration Date Visits Re quested Visits Authorized [id number] Closed 09/26/2021 11/27/2021 2 2 [facility] Summary [facility] Family History No Family History Records Found Relationship Condition Age at Onset Recorded Date/T luiz sister Malignant neoplasm of ovary Unknown daughter Malignant neoplasm of ovary Unknown mother Rheumatoid arthritis Unknown Hypertension Unknown father Coronary artery disease Unknown Advance Directives No Advanced Directives Records Found Advance Directive Response Recorded Date/ Time Living Will No September 25, 2018 7: 39pm Power of Asset Management Coordinator No September 25, 2018 7:39pm Advance Directive Response Recorded Date/ Time Name of Medical Power of Asset Management Coordinator SPOUSE January 03, 2022 3:42pm Living Will Yes January 03 3:42pm Power of Asset Management Coordinator Yes January 03 022 3:42pm Advance Directive Response Recorded Date/ Time Living Will Yes July 25, 2022 5:41pm Power of Asset Management Coordinator Yes July 25 5:41pm Advance Directive Response Recorded Date/ Time Living Will Yes July 25, 2022 5:41pm Do you have a Healthcare Power of Asset Management Coordinator? Yes July 25, 2022 5:41pm Chief Complaint and Reason for Visit Chief Complaint 1 Y FU SINUSITIS GOITER Reason for Visit Fatigue Hypothyroidism Chief Complaint GOITER SINUSITIS Chief Complaint SINUSITIS SEPTOPLASTY, FESS Reason for Visit Hypertrophy of infer ior nasal turbinate Nasal congestion Nasal septal deviation Chronic pansinusitis Chief Complaint SCREENING Chief Complaint 1 Y FU Reason for Visit Hypothyroidism Chief Complaint Admit Date 1 Y FU July 29, 2024 3:5 4pm EORDER August 04, 2024 3:1 1pm Reason for Visit Admit Date Hypothyroidism July 29, 2024 3:5 4pm Additional Source Comments INFORMATION SOURCE (unrecogn ized section and content) DATE CREATED AUTHOR 11/16/2017 [facility] benjie [place] DATE CREATED AUTHOR AUTHOR'S ORGANIZ ATION 02/11/2023 [facility] DATE CREATED AUTHOR AUTHOR'S ORGANIZ ATION [facility] Goals (unrecognized section and content) Goals may be documented in a n alternate sectionGoals may be documented in an alternate sectionGoals may be documented in an alternate sectionGoals may be documented in an alternate sectionGoals may be documented in an alternate sectionGoals may be documented in an alternate sectionGoals may be documented in an alternate sectionGoals may be documented in an alternate sectionGoals may be documented in an alternate sectionGoals may be documented in an alternate sectionGoals may be documented in an alternate sectionGoals may be documented in an alternate sectionGoals may be documented in an alternate section Source Comments (unrecognize d section and content) In the event this informatio n is protected by the Federal Confidentiality of Alcohol and Drug Abuse Patient Records regulations: The Federal rules restrict any use of the information to criminally investigate or prosecute any alcohol or drug abuse patient.[facility] the event this information is protected by the Federal Confidentiality of Alcohol and Drug Abuse Patient Records regulations: The Federal rules restrict any use of the information to criminally investigate or prosecute any alcohol or drug abuse patient.[facility] the event this information is protected by the Federal Confidentiality of Alcohol and Drug Abuse Patient Records regulations: The Federal rules restrict any use of the information to criminally investigate or prosecute any alcohol or drug abuse patient.[facility] the event this information is protected by the Federal Confidentiality of Alcohol and Drug Abuse Patient Records regulations: The Federal rules restrict any use of the information to criminally investigate or prosecute any alcohol or drug abuse patient.[facility]In the event this information is protected by the Federal Confidentiality of Alcohol and Drug Abuse Patient Records regulations: The Federal rules restrict any use of the information to criminally investigate or prosecute any alcohol or drug abuse patient.[facility] the event this information is protected by the Federal Confidentiality of Alcohol and Drug Abuse Patient Records regulations: The Federal rules restrict any use of the information to criminally investigate or prosecute any alcohol or drug abuse patient.[facility]In the event this information is protected by the Federal Confidentiality of Alcohol and Drug Abuse Patient Records regulations: The Federal rules restrict any use of the information to criminally investigate or prosecute any alcohol or drug abuse patient.[facility] the event this information is protected by the Federal Confidentiality of Alcohol and Drug Abuse Patient Records regulations: The Federal rules restrict any use of the information to criminally investigate or prosecute any alcohol or drug abuse patient.[facility] Reason for Visit (unrecogniz ed section and content) Reason Comments Radiology CT Specialty Diagnoses / Procedures Referred By Adamaris t Referred To Contact Radiology / RADIO CT [facility] Diagnoses CT ABD/PEL W IVCON-Intrabdominal and pelvis swelling, mass, and lumps [R19.00] / [place] [id number] / ordered by Shalini Shahid MD - verified Procedures CT [facility] ABD1 [address], Shalini Matson MD [address] [place] [address] Scan [facility] [address] [place] [address] Referral ID Status Reason Start Date Expiration Date Visits Re quested Visits Authorized [id number] Closed 09/26/2021 11/27/2021 2 2 Reason Comments Consult Evaluate CT scan, po ssible hernia Reason Comments Patient Question Reason Comments Pre-Op Visit Reason Comments Short Term Disability Reason Comments Consult Hernia repair site p ain Care Teams (unrecognized sec tion and content) Button Attaching Machine Operator Relationship Specialty Start Date End Date Shalini Shahid MD [address] [place] [address] [place] [phone] PCP - General Family Practice 04/26/20 Button Attaching Machine Operator Relationship Specialty Start Date End Date Shalini Shahid MD [address] [place] [address] [facility] [address] PCP - General Family Practice 04/26/20 Button Attaching Machine Operator Relationship Specialty Start Date End Date Shalini Shahid MD [address] [place] [address], [place] [address] PCP - General Family Medicine 04/26/20 Button Attaching Machine Operator Relationship Specialty Start Date End Date Shalini Shahid MD [address] [place] [address] [facility] [address] PCP - General Family Medicine 04/26/20 Button Attaching Machine Operator Relationship Specialty Start Date End Date Shalini Shahid MD [address] [place] [address] [place] [address] PCP - General Family Medicine 04/26/20 Button Attaching Machine Operator Relationship Specialty Start Date End Date Shalini Shahid MD [address] [place] [address], [place] [address] PCP - General Family Medicine 04/26/20 Team Status: Active Member Role Status Dates Dr. Shalini Shahid MD Family Provider Active Dr. Shalini Shahid MD Primary Care Provider Active Team Status: Inactive Member Role Status Dates Dr. Shalini Shahid MD Primary Care Provider, Attending P albina Active Dr. Morgan Razo MD Other Provider Active Team Status: Inactive Member Role Status Dates Dr. Shalini Shahid MD Primary Care Provider, Attending P rovider Active Team Status: Active Member Role Status Dates Dr. Shalini Shahid MD Primary Care Provide r, Attending Provider, Referring Provider Active Team Status: Inactive Member Role Status Dates Dr. Shalini Shahid MD Primary Care Provide r, Attending Provider, Referring Provider Active Button Attaching Machine Operator Relationship Specialty Start Date End Date Shalini Shahid MD [address] [place] [id number] PCP - General Family Medicine 04/26/20 Team Status: Inactive Member Role Status Dates Dr. Shalini Shahid MD Primary Care Provider, Referring P rocarrie Active Dr. Morgan Razo MD Attending Provider Active Team Status: Active Member Role Status Dates Dr. Shalini Shahid MD Primary Care Provider Active Team Status: Inactive Member Role Status Dates Dr. Shalini Shahid MD Primary Care Provider Active Start: July 29, 2024 End: July 29, 2024 Dr. Shalini Shahid MD Referring Provider Active St art: July 29, 2024 End: July 29, 2024 Dr. Morgan Razo MD Attending Provider Active Sta rt: July 29, 2024 End: July 29, 2024 Team Status: Inactive Member Role Status Dates Dr. Shalini Shahid MD Primary Care Provider Active Start: August 04, 2024 End: August 04, 2024 Dr. Morgan Razo MD Attending Provider Active Sta rt: August 04, 2024 End: August 04, 2024 Dr. Morgan Razo MD Referring Provider Active Sta rt: August 04, 2024 End: August 04, 2024 Team Status: Inactive Member Role Status Dates Dr. Shalini Shahid MD Primary Care Provider Active Start: November 06, 2024 End: November 06, 2024 Adelina Lopez NP, [employer] Attending Provider Active Start: November 06, 2024 End: November 06, 2024 Team Status: Active Member Role/Relationship Status Dates Dr. Shalini Shahid MD Primary Care Provider Active Team Status: Inactive Member Role/Relationship Status Dates Dr. Shalini Shahid MD Primary Care Provider Active Start: November 06, 2024 End: November 06, 2024 Adelina Lopez NP, [employer] Attending Provider Active Start: November 06, 2024 End: November 06, 2024 Team Status: Inactive Member Role/Relationship Status Dates Dr. Shalini Shahid MD Primary Care Provider Active Start: December 04, 2024 End: December 04, 2024 Dr. Shalini Shahid MD Attending Provider Active St art: December 04, 2024 End: December 04, 2024 Dr. Shalini Shahid MD Referring Provider Active St art: December 04, 2024 End: December 04, 2024 FOR RECORDS PERTAINING TO PATIENTS WHO ARE OR HAVE BEEN ENROLLED IN A CHEMICAL DEPENDENCY/SUBSTANCEABUSE PROGRAM, SOME INFORMATION MAY BE OMITTED. This clinical summary was aggregated from multiple sources. Caution should be exercised in using it in the provision of clinical care. This summary normalizes information from multiple sources, and as a consequence, information in this document may materially change the coding, format and clinical context of patient data. In addition, data may be omitted in some cases. CLINICAL DECISIONS SHOULD BE BASED ON THE PRIMARY CLINICAL RECORDS. [facility] [employer] provides no warranty or guarantee of the accuracy or completeness of information in this document.
== END | disposition home or self-care (01) ==
PROVIDERS: PCP Family Medicine; Referring Provider Family Medicine; Visit Provider Family Medicine
DX: Z12.31 Encounter for screening mammogram for malignant neoplasm of breast (principal)
CPT/HCPCS: 77063; 77067